=== PATIENT | male | born 1940 | race Caucasian/White ===

== ENCOUNTER → 2017-06-26 05:50 | Outpatient (CLI) | payer MEDICARE, OTHER, SELFPAY ==
[2017-06-26 08:15] LABS: ALB/GLOB Ratio 1.1 RATIO (0.9-2.4); AST(SGOT) 17 U/L (15-37); Alanine Aminotransfer ALT/SGPT 23 U/L (16-61); Albumin, Serum 3.3 g/dL (3.2-5.0); Alkaline Phosphatase 103 U/L (45-117); Anion Gap 4 (5-15); BUN 13 mg/dL (7-18); BUN/Creat Ratio 11.8 RATIO (10-20); Calcium,Total 8.8 mg/dL (8.5-10.1); Chloride 103 mmol/L (98-107); EST Glomerular Filtration Rate 69 mL/min (>60); Est Glom Filt Rate - Afr Amer 84 mL/min (>60); Free T3 2.9 pg/mL (2.18-3.98); Glucose 89 mg/dL (74-106); Potassium 4.1 mmol/L (3.5-5.1); Protein, Total 6.3 g/dL (6.4-8.2); Sodium Level 141 mmol/L (136-145); T4 Free Direct 1.33 ng/dL (0.76-1.46); Thyroid Stim Hormone (TSH) 1.32 uIU/mL (0.358-3.74)
[2017-06-26 13:24] LABS: Vitamin D,25 Hydroxy 36.8 ng/mL (29.95-100.01)
== END ==
PROVIDERS: Family Provider Family Medicine; PCP Family Medicine; Visit Provider Internal Medicine Endocrinology, Diabetes & Metabolism
DX: E03.9 Hypothyroidism, unspecified (principal); E55.9 Vitamin D deficiency, unspecified
CPT/HCPCS: 36415; 80053; 82306; 84439; 84443; 84481

== ENCOUNTER 2017-07-27 01:10 | Emergency (ER) | payer MEDICARE, OTHER, SELFPAY ==
[2017-07-27 01:12] VITALS: BP 155/91; PULSE 58; RESP 19; TEMP 36.6; O2SAT 98; BMI 38.0
--- NOTE | 2017-07-27 01:55 | ED.VISSUMM ---
- ER Visit Summary Date of Service: 07/27/17 Chief Complaint: [Bleeding from left ear] History of Present Illness: The patient is a 77 M [presents to the emergency department with complaint of bloody drainage from left ear that started around 12:30 AM. Patient was asleep when he was awoken by a wet sensation on his pillow. Patient does use CPAP. Patient is on Xarelto for history of A. fib. Patient denies any pain in his ear. Patient denies any trauma to his ear although he did use a Q-tip yesterday morning but had no issues throughout the day. Patient denies any recent illness.] Physical Examination: [HEENT-PERRLA, EOMI. Cranial nerves II through XII grossly intact. Left ear canal has blood in it appears to be clot on the medial side of the ear canal without active bleeding at this time. I am only able to see the outer aspect of the ear dry and it appears normal. I am unable to perform insufflation.. Mucous membranes moist. No adenopathy. Cardiovascular-regular rate and rhythm. No murmurs auscultated. Lungs-clear to auscultation, chest wall stable without crepitus or subcu emphysema Abdomen-normoactive bowel sounds, soft, nontender, no rebound or rigidity, no peritoneal signs. Extremities-intact ?4, normal range of motion, normal pulses, atraumatic] Test Results: [None indicated] Emergency Department Course and Treatment: [I will start patient on Ciprodex otic suspension]. It is unclear if patient may have had a TM perforation versus abrasion to the ear canal although I suspect likely an abrasion to his ear canal as the etiology for the bleeding. Treatment Plan: [Discharged with follow-up with Dr. Bautista who is on for ENT.] Disposition: [Discharged home in stable condition] Impression: [Bleeding from left ear-suspect abrasion medial ear canal] This note was generated with [employer] dictation software. It may contain incorrect words, spelling, and punctuation that were not noted in review of the chart prior to signing ED Disposition - Plan for ED Patient: Chief Complaint: Ear Problem Referrals: Fidel Maurer DO [Primary Care Provider] -
--- NOTE | 2017-07-27 02:00 | ED.DEP ---
ED Disposition - Plan for ED Patient: Chief Complaint: Ear Problem Prescriptions: Ciprofloxacin HCl/Dexameth [Ciprodex Otic Suspension] 2 drp LEFT EAR BID #1 bot Referrals: Fidel Maurer DO [Primary Care Provider] - Additional Instructions: Bleeding from left ear canal may be due to a tear of ear canal or ruptured ear drum, Follow up with ENT doctor
== END 2017-07-27 02:12 | disposition home or self-care (01) ==
LOC: ED 01:58
PROVIDERS: Emergency Provider Emergency Medicine; Family Provider Family Medicine; PCP Family Medicine
DX: H92.22 Otorrhagia, left ear (principal); I48.91 Unspecified atrial fibrillation; I25.10 Atherosclerotic heart disease of native coronary artery without angina pectoris; I10 Essential (primary) hypertension; E03.9 Hypothyroidism, unspecified; Z79.82 Long term (current) use of aspirin; Z79.01 Long term (current) use of anticoagulants; Z79.899 Other long term (current) drug therapy
CPT/HCPCS: 99282

== ENCOUNTER → 2017-10-08 09:51 | Outpatient (CLI) | payer MEDICARE, OTHER, SELFPAY ==
--- NOTE | 2017-10-08 10:20 | RAD_ITS ---
STUDY: X-RAY - LUMBAR SPINE REASON FOR EXAM: Male, 77 years old. Pain lower back radiating down both legs for several weeks. TECHNIQUE: 5 view(s) of the lumbar spine were obtained. COMPARISON: None FINDINGS: There is reversal of the normal lumbar lordosis. There is no substantial scoliosis. There is retrolisthesis of L3 on L4 of 6 mm. The alignment is otherwise preserved. There is multilevel endplate spondylosis of the lumbar vertebrae. There is multi-level degenerative disc disease with multi-level disc space narrowing. This is most marked at L3-4. There is no evidence of acute fracture or loss of vertebral axial height. There is no demonstrated spondylolysis of the pars interarticulares. There is atherosclerotic calcification of the abdominal aorta without a demonstrated aneurysm. RAD/L/S Spine Min 4 Views IMPRESSION: Degenerative changes of the spine, as detailed above. Electronically Signed: Mele Elliott DO at 19:20 EDT Tel [phone], Service support ,
== END ==
PROVIDERS: Family Provider Family Medicine; PCP Family Medicine; Visit Provider Family Medicine
DX: M51.36 Other intervertebral disc degeneration, lumbar region (principal)
CPT/HCPCS: 72110

== ENCOUNTER → 2018-04-04 06:01 | Outpatient (CLI) | payer MEDICARE, OTHER, SELFPAY ==
[2018-04-04 08:42] LABS: Absolute Lymphocyte Count 1.77 X10^3/ul (0.83-4.51); Absolute Neutrophil Count 3.9 X10^3/uL (2.0-7.7); Basophil# 0.03 X10^3/uL; Basophil% 0.5 % (0-1); Eosinophil# 0.15 X10^3/uL; Eosinophils% 2.3 % (0-5); Hematocrit 42.5 % (40-54); Hemoglobin 14.4 g/dl (13.0-16.5); Lymphocyte # 1.77 X10^3/ul (4.0); Lymphocyte % 27.5 % (19-41); Mean Corp Hgb Conc 33.9 g/gl (32-36); Mean Corpuscular Hgb 31.2 pg (27.0-32.0); Mean Corpuscular Volume 92.2 fL (80-94); Mean Platelet Vol. 10.5 fl (6.2-12.0); Monocyte# 0.54 X10^3/uL; Monocyte% 8.4 % (0-10); Neutrophil # 3.94 X10^3/uL (2.7-7.7); Neutrophil % 61.1 % (47-70); Platelet Count 187 K/mm3 (150-450); RBC Distribution Width CV 12.6 % (11.6-14.6); RBC Distribution Width SD 41.7 fl (35.1-43.9); Red Blood Count 4.61 M/mm3 (4.6-6.2); White Blood Count 6.4 K/mm3 (4.4-11.0)
[2018-04-04 08:51] LABS: POSITIVE COUNT NO; POSITIVE DIFFERENTIAL NO; POSITIVE MORPHOLOGY NO
[2018-04-04 09:16] LABS: ALB/GLOB Ratio 1.2 RATIO (0.9-2.4); AST(SGOT) 17 U/L (15-37); Alanine Aminotransfer ALT/SGPT 25 U/L (16-61); Albumin, Serum 3.4 g/dL (3.2-5.0); Alkaline Phosphatase 109 U/L (45-117); Anion Gap 8 (5-15); BUN 16 mg/dL (7-18); Calcium,Total 8.2 mg/dL (8.5-10.1); Chloride 106 mmol/L (98-107); Cholesterol 125 mg/dL (200); Creatinine, Serum 1.14 mg/dL (0.70-1.30); EST Glomerular Filtration Rate 66 mL/min (>60); Est Glom Filt Rate - Afr Amer 80 mL/min (>60); Free T3 2.5 pg/mL (2.18-3.98); Globulin 2.8 g/dL (2.2-4.2); Glucose 96 mg/dL (74-106); High Density Lipoprotein 48 mg/dL; Potassium 3.8 mmol/L (3.5-5.1); Protein, Total 6.2 g/dL (6.4-8.2); Sodium Level 140 mmol/L (136-145); T4 Free Direct 1.28 ng/dL (0.76-1.46); Thyroid Stim Hormone (TSH) 1.89 uIU/mL (0.358-3.74); Triglycerides 118 mg/dL; Very Low Density Lipoprotein 24 mg/dL (5-40)
== END ==
PROVIDERS: Family Provider Family Medicine; PCP Family Medicine; Referring Provider Internal Medicine Endocrinology, Diabetes & Metabolism; Visit Provider Internal Medicine Endocrinology, Diabetes & Metabolism
DX: I10 Essential (primary) hypertension (principal); E78.5 Hyperlipidemia, unspecified; E03.9 Hypothyroidism, unspecified
CPT/HCPCS: 36415; 80053; 80061; 84439; 84443; 84481; 85025

== ENCOUNTER → 2018-04-25 07:27 | Outpatient (CLI) | payer MEDICARE, OTHER, SELFPAY ==
--- NOTE | 2018-04-25 07:32 | CDU_ITS ---
Reason For Study: carotid stenosis Rt. Velocities/BP Lt. Velocities/BP Prox CCA 67.4/21.1 cm/sec. Prox CCA 97.3/21.1 cm/sec. Mid CCA 65.1/15.2 cm/sec. Mid CCA 93.8/23.5 cm/sec. Dist CCA 88.5/22.3 cm/sec. Dist CCA 65.1/21.7 cm/sec. Prox ICA 53.4/19.9 cm/sec. Prox ICA 77.4/23.5 cm/sec. Mid ICA 76.8/32.8 cm/sec. Mid ICA 71.5/29.9 cm/sec. Dist ICA 80.3/26.4 cm/sec. Dist ICA 84.4/33.4 cm/sec. Rt. ICA/CCA = 1.2. Lt. ICA/CCA = .9. Prox ECA 110/21.7 cm/sec. Prox ECA 99.8/16.5 cm/sec. Rt. Vert. 43.2/16.1 cm/sec. Lt. Vert. 33.8/14.1 cm/sec. Right Extracranial There is heterogeneous, irregular atherosclerotic plaque noted in the right common carotid artery. There is intimal thickening but no significant atherosclerotic plaque noted in the right internal carotid artery. There is intimal thickening but no significant atherosclerotic plaque noted in the right external carotid artery. Antegrade flow is noted in the right vertebral artery. Left Extracranial There is heterogeneous, irregular atherosclerotic plaque noted in the left common carotid artery. There is intimal thickening but no significant atherosclerotic plaque noted in the left internal carotid artery. There is intimal thickening but no significant atherosclerotic plaque noted in the left external carotid artery. Antegrade flow is noted in the left vertebral artery. Procedure Carotid Duplex [id number]. The exam was diagnostic. Exam performed in department. Interpretation Summary Surgical changes right carotid bulb and internal carotid with <50% stenosis. No significant plague proximal left internal carotid with <50% stenosis. Normal flow bilateral external carotids Patent and antegrade vertebrals bilaterally No change from 04/19/17. Ordering Physician: Won Noel Referring Physician: Fidel Maurer Performed By: Jose Brennan RVT
--- OUTSIDE RECORDS SUMMARY | 2018-06-29 19:48 | XMS RPT_ITS ---
:1940 Author Organization OHIP Care Team Providers Name Role Phone Dafne Otoole Attending Unavailable Dafne Otoole Referring Unavailable Fidel Maurer Primary Care Unavailable Varghese Celis Consulting Unavailable Dafne Otoole Attending Unavailable Dafne Otoole Referring Unavailable Fidel Maurer Primary Care Unavailable Varghese Celis Consulting Unavailable Fidel Maurer Attending Unavailable Fidel Maurer Primary Care Unavailable Fidel Maurer Attending Unavailable Fidel Maurer Referring Unavailable Fidel Maurer Primary Care Unavailable Won Noel Attending Unavailable Won Noel Referring Unavailable Fidel Maurer Primary Care Unavailable Won Noel Consulting Unavailable Erasto, Fidel Primary Care Unavailable Manuela Carpio Attending Unavailable Anita Boone Attending Unavailable ErastoFidel richards Referring Unavailable Erasto, Fidel Primary Care Unavailable Won Noel Attending Unavailable Won Noel Referring Unavailable Erasto, Fidel Primary Care Unavailable PROBLEMS PROBLEMS DATE TYPE CONDITION / CODE ATTENDING STATUS SOURCE 04/25/2018 Unknown I65.23 - Occlusion Won Noel Active [place] and stenosis of [facility] bilateral carotid Hospital arteries / Repository I65.23(ICD-10) 04/04/2018 Unknown E03.9 - Raghunathan, Active [place] Hypothyroidism, Dafne N. 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 Community unspecified / Hospital E55.9(ICD-10) Repository PROCEDURES PROCEDURES No Procedure Records FoundRESULTS RESULTS CAROTID DUPLEX Observed: 04/25/2018 Status: F Source: [place] ULTRASOUND 3:17 PM [facility] REPOSITORY [facility] Cardiovascular Services [address] [place] [address] Carotid Duplex Ultrasound 04/25/18 0759 MR#: [id number] Acct: [id number] Name: CYNTHIA MANDUJANO Rep #: [id number] : 1940 77 From: Won Noel MD Attending Dr: Won Noel MD Status: REG CLI Ordering Dr: Won Noel MD Date: 04/25/18 Location: CVS Sex: M C Admitted: Reason For Study: carotid stenosis Rt. Velocities/BP Lt. Velocities/BP Prox CCA 67.4/21.1 cm/sec. Prox CCA 97.3/21.1 cm/sec. Mid CCA 65.1/15.2 cm/sec. Mid CCA 93.8/23.5 cm/sec. Dist CCA 88.5/22.3 cm/sec. Dist CCA 65.1/21.7 cm/sec. Prox ICA 53.4/19.9 cm/sec. Prox ICA 77.4/23.5 cm/sec. Mid ICA 76.8/32.8 cm/sec. Mid ICA 71.5/29.9 cm/sec. Dist ICA 80.3/26.4 cm/sec. Dist ICA 84.4/33.4 cm/sec. Rt. ICA/CCA = 1.2. Lt. ICA/CCA = .9. Prox ECA 110/21.7 cm/sec. Prox ECA 99.8/16.5 cm/sec. Rt. Vert. 43.2/16.1 cm/sec. Lt. Vert. 33.8/14.1 cm/sec. Right Extracranial There is heterogeneous, irregular atherosclerotic plaque noted in the right common carotid artery. There is intimal thickening but no significant atherosclerotic plaque noted in the right internal carotid artery. There is intimal thickening but no significant atherosclerotic plaque noted in the right external carotid artery. Antegrade flow is noted in the right vertebral artery. Left Extracranial There is heterogeneous, irregular atherosclerotic plaque noted in the left common carotid artery. There is intimal thickening but no significant atherosclerotic plaque noted in the left internal carotid artery. There is intimal thickening but no significant atherosclerotic plaque noted in the left external carotid artery. Antegrade flow is noted in the left vertebral artery. Procedure Carotid Duplex 62145. The exam was diagnostic. Exam performed in department. Interpretation Summary Surgical changes right carotid bulb and internal carotid with <50% stenosis. No significant plague proximal left internal carotid with <50% stenosis. Normal flow bilateral external carotids Patent and antegrade vertebrals bilaterally No change from 04/19/17. Ordering Physician: Won Noel Referring Physician: Fidel Maurer Performed By: Jose Brennan RVT 04/25/18 1517 Date Won Noel MD CC: Fidel Maurer DO; Won Noel MD Date Dictated: 04/25/18 0759 Date Transcribed: 04/25/181516 Water Superintendent: Signed CBC W/DIFF, AUTOMATED Collected: 04/04/2018 Status: F Source: [place] 6:10 AM [facility] REPOSITORY Order Comment: LIPID,CMP,CBCD FOR DR MAURER T3F,T4F, TSH FOR ABBEY TYPE CODE TESTS RESULT OUT OF RANGE REFERENCE UNITS LAB L100.1000 4.4-11.0 K/mm3 Normal WBC 6.4 LAB L100.1200 4.6-6.2 M/mm3 Normal RBC 4.61 LAB L100.1300 13.0-16.5 g/dl Normal HGB 14.4 LAB L100.1400 40-54 % Normal HCT 42.5 LAB L100.1500 80-94 fL Normal MCV 92.2 LAB L100.1600 27.0-32.0 pg Normal MCH 31.2 LAB L100.1700 32-36 g/gl Normal MCHC 33.9 LAB L100.1810 11.6-14.6 % Normal RDW CV 12.6 LAB L100.1820 35.1-43.9 fl Normal RDW SD 41.7 LAB L100.1900 150-450 K/mm3 Normal PLT 187 LAB L100.2000 6.2-12.0 fl Normal MPV 10.5 LAB L100.2100 47-70 % Normal NEUT% 61.1 LAB L100.2200 19-41 % Normal LY% 27.5 LAB L100.2300 0-10 % Normal MONO% 8.4 LAB L100.2400 0-5 % Normal EO% 2.3 LAB L100.2500 0-1 % Normal BASO% 0.5 LAB L100.2550 0.0-0.9 % Normal IM GRAN % 0.200 Result Comment: IG% - Immature Granulocytes (promyelocytes, myelocytes and metamyelocytes) > 1% indicates that a LEFT SHIFT is Present. LAB L100.2620 2.0-7.7 X10 3/uL Normal Absolute Neut 3.9 LAB L100.2720 0.83-4.51 X10 3/ul Normal Absolute Lymph 1.77 Performed By: #### L100.0100 #### [facility] [address] [place], [address] COMPREHENSIVE METABOLIC Collected: 04/04/2018 Status: F Source: [place] [facility] 6:08 AM [facility] REPOSITORY Order Comment: LIPID,CMP,CBCD FOR DR MAURER T3F,T4F, TSH FOR ABBEY TYPE CODE TESTS RESULT OUT OF RANGE REFERENCE UNITS LAB L501.0100 74-106 mg/dL Normal GLU 96 Result Comment: Please note revised GLUCOSE reference range effective 2017. LAB L501.1000 7-18 mg/dL Normal BUN 16 LAB L501.1100 0.70-1.30 mg/dL Normal CREAT,SERUM 1.14 Result Comment: The validity of the calculated GFR AND GFRAA in patients over 70 years has not been determined. Clinical correlation is essential. LAB L501.1110 >60 mL/min Normal EST GFR 66 Result Comment: Non- GFR Calc LAB L501.1115 >60 mL/min Normal EST GFR - AA 80 Result Comment: GFR Calc LAB L501.1300 10-20 RATIO Normal BUN/CRE 14.0 LAB L501.1500 6.4-8.2 g/dL Low T PROT 6.2 LAB L501.1800 3.2-5.0 g/dL Normal ALB 3.4 LAB L501.1950 2.2-4.2 g/dL Normal GLOB 2.8 LAB L501.2000 0.9-2.4 RATIO Normal A/G 1.2 LAB L501.2200 8.5-10.1 mg/dL Low CA 8.2 LAB L501.4100 15-37 U/L Normal AST 17 LAB L501.4305 45-117 U/L Normal ALK P 109 LAB L501.4405 16-61 U/L Normal ALT 25 LAB L501.4600 0.20-1.00 mg/dL T Normal BILI 0.50 LAB L501.5300 136-145 mmol/L NA Normal 140 LAB L501.5600 3.5-5.1 mmol/L K Normal 3.8 LAB L501.5900 98-107 mmol/L CL Normal 106 LAB L501.6100 21.0-32.0 mmol/L Normal CO2 26.0 LAB L501.6200 5-15 Normal GAP 8 Performed By: #### L500.4050, L500.4100, L501.88223, L501.9520, L506.0400 #### [facility] [address] [place], [place], [address] LIPID PROFILE Collected: 04/04/2018 Status: F Source: [place] 6:08 AM [facility] REPOSITORY Order Comment: LIPID,CMP,CBCD FOR DR MAURER T3F,T4F, TSH FOR RAGHUNATHAN TYPE CODE TESTS RESULT OUT OF RANGE REFERENCE UNITS LAB L501.4900 200 mg/dL Normal CHOL 125 Result Comment: <200 mg/dL Desirable 200-240 mg/dL Borderline >240 mg/dL High Risk LAB L501.5000 mg/dL Normal TRIG 118 Result Comment: The drugs N-Acetylcysteine and Metamizole may falsely depress this assay. Serum Triglycerides Reference Interval Normal <150 mg/dL Borderline high 150 - 199 mg/dL High 200 - 499 mg/dL Very High > or = 500 mg/dL LAB L501.6400 mg/dL Normal HDL 48 Result Comment: The drugs N-Acetylcysteine and Metamizole may falsely depress this assay. Reference Range HDL <40 mg/dL Low HDL Cholesterol HDL >or= 60 mg/dL High HDL Cholesterol LAB L501.6500 0-130 mg/dL Normal LDL 53 LAB L501.6600 5-40 mg/dL Normal VLDL 24 Performed By: #### L500.4050, L500.4100, L501.12285, L501.9520, L506.0400 #### [facility] [address] [place], [place], [address] FREE T3 Collected: 04/04/2018 Status: F Source: [place] 6:08 AM [facility] REPOSITORY Order Comment: LIPID,CMP,CBCD FOR DR MAURER T3F,T4F, TSH FOR RAGHUNATHAN TYPE CODE TESTS RESULT OUT OF RANGE REFERENCE UNITS LAB L501.10399 2.18-3.98 pg/mL Normal FREE T3 2.5 Performed By: #### L500.4050, L500.4100, L501.72800, L501.9520, L506.0400 #### [facility] [address] [place], [address] THYROID STIM HORMONE Collected: 04/04/2018 Status: F Source: [place] (TSH) 6:08 AM [facility] REPOSITORY Order Comment: LIPID,CMP,CBCD FOR DR MAURER T3F,T4F, TSH FOR RAGNATHAN TYPE CODE TESTS RESULT OUT OF RANGE REFERENCE UNITS LAB L501.9520 0.358-3.74 uIU/mL Normal TSH 1.89 Performed By: #### L500.4050, L500.4100, L501.55056, L501.9520, L506.0400 #### [facility] [place], [address] T4 FREE DIRECT Collected: 04/04/2018 Status: F Source: [place] 6:08 AM [facility] REPOSITORY Order Comment: LIPID,CMP,CBCD FOR DR MAURER T3F,T4F, TSH FOR RAGNATHAN TYPE CODE TESTS RESULT OUT OF RANGE REFERENCE UNITS LAB L506.0400 0.76-1.46 ng/dL Normal T4 FREE 1.28 DIRECT Performed By: #### L500.4050, L500.4100, L501.43820, L501.9520, L506.0400 #### [facility] [place], [address] L/S SPINE MIN 4 Observed: 10/08/2017 Status: F Source: [place] VIEWS 9:55 AM [facility] REPOSITORY [facility] Imaging Services [address] [place] [address] L/S Spine Min 4 Views MR#: [id number] Acct: [id number] Name: CYNTHIA MANDUJANO Rep #: [id number] : 1940 M 77 From: Mele Elliott DO PCP: Fidel Maurer DO Status: REG CLI Study: L/S Spine Min 4 Views Date of Exam: 10/08/17 Exam# [id number] Ordering Dr: Fidel Maurer DO STUDY: X-RAY - LUMBAR SPINE REASON FOR EXAM: Male, 77 years old. Pain lower back radiating down both legs for several weeks. TECHNIQUE: 5 view(s) of the lumbar spine were obtained. COMPARISON: None FINDINGS: There is reversal of the normal lumbar lordosis. There is no substantial scoliosis. There is retrolisthesis of L3 on L4 of 6 mm. The alignment is otherwise preserved. There is multilevel endplate spondylosis of the lumbar vertebrae. There is multi-level degenerative disc disease with multi-level disc space narrowing. This is most marked at L3-4. There is no evidence of acute fracture or loss of vertebral axial height. There is no demonstrated spondylolysis of the pars interarticulares. There is atherosclerotic calcification of the abdominal aorta without a demonstrated aneurysm. RAD/L/S Spine Min 4 Views IMPRESSION: Degenerative changes of the spine, as detailed above. Electronically Signed: Mele Elliott DO at 19:20 EDT Tel [phone], Service support , CC: Fidel Maurer DO Water Superintendent: Signed DISCHARGE INSTRUCTION Observed: 07/27/2017 Status: F Source: [place] 2:02 AM [facility] REPOSITORY [facility] Medical Records Department [address] [place] [address] Discharge Instruction 07/27/17 0200 MR#: [id number] Acct: [id number] Name: CYNTHIA MANDUJANO Kory Rep #: [id number] : 1940 77 From: Talon Carpio DO PCP: Fidel Maurer DO Status: REG ER ED Disposition - Plan for ED Patient: Chief Complaint: Ear Problem Prescriptions: Ciprofloxacin HCl/Dexameth [Ciprodex Otic Suspension] 2 drp LEFT EAR BID #1 bot Referrals: Fidel Maurer DO [Primary Care Provider] - Additional Instructions: Bleeding from left ear canal may be due to a tear of ear canal or ruptured ear drum, Follow up with ENT doctor What to do if you have Problems For any increased pain, shortness of breath, bleeding, nausea or vomiting, chest pain, or any unexpected problems, contact your Primary Care Provider. Call [facility] ([phone]) or report to the closest Emergency Room. Call 911 if necessary. 07/27/17 0202 <Electronically signed by Talon Carpio DO> Date Talon Carpio DO Cosigner Signature (If Indicated): Date CC: Fidel Maurer DO EMERGENCY DEPARTMENT Observed: 07/27/2017 Status: F Source: [place] SUMMARY 1:58 AM [facility] REPOSITORY [facility] Medical Records Department [address] [place] [address] Emergency Department Summary 07/27/17 0155 MR#: [id number] Acct: [id number] Name: CYNTHIA MANDUJANO Rep #: [id number] : 1940 77 From: Talon Carpio DO PCP: Fidel Maurer DO Status: REG ER - ER Visit Summary Date of Service: 07/27/17 Chief Complaint: [Bleeding from left ear] History of Present Illness: The patient is a 77 M [presents to the emergency department with complaint of bloody drainage from left ear that started around 12:30 AM. Patient was asleep when he was awoken by a wet sensation on his pillow. Patient does use CPAP. Patient is on Xarelto for history of A. fib. Patient denies any pain in his ear. Patient denies any trauma to his ear although he did use a Q-tip yesterday morning but had no issues throughout the day. Patient denies any recent illness.] Physical Examination: [HEENT-PERRLA, EOMI. Cranial nerves II through XII grossly intact. Left ear canal has blood in it appears to be clot on the medial side of the ear canal without active bleeding at this time. I am only able to see the outer aspect of the ear dry and it appears normal. I am unable to perform insufflation.. Mucous membranes moist. No adenopathy. Cardiovascular-regular rate and rhythm. No murmurs auscultated. Lungs-clear to auscultation, chest wall stable without crepitus or subcu emphysema Abdomen-normoactive bowel sounds, soft, nontender, no rebound or rigidity, no peritoneal signs. Extremities-intact 4, normal range of motion, normal pulses, atraumatic] Test Results: [None indicated] Emergency Department Course and Treatment: [I will start patient on Ciprodex otic suspension]. It is unclear if patient may have had a TM perforation versus abrasion to the ear canal although I suspect likely an abrasion to his ear canal as the etiology for the bleeding. Treatment Plan: [Discharged with follow-up with Dr. Bautista who is on for ENT.] Disposition: [Discharged home in stable condition] Impression: [Bleeding from left ear-suspect abrasion medial ear canal] This note was generated with [employer] dictation software. It may contain incorrect words, spelling, and punctuation that were not noted in review of the chart prior to signing ED Disposition - Plan for ED Patient: Chief Complaint: Ear Problem Referrals: Fidel Maurer, [Primary Care Provider] - What to do if you have Problems For any increased pain, shortness of breath, bleeding, nausea or vomiting, chest pain, or any unexpected problems, contact your Primary Care Provider. Call [facility] ([phone]) or report to the closest Emergency Room. Call 911 if necessary. 07/27/17 0158 <Electronically signed by Talon Carpio DO> Date Talon Carpio DO Cosigner Signature (If Indicated): Date CC: Fidel Maurer DO COMPREHENSIVE METABOLIC Collected: 06/26/2017 Status: F Source: [place] 5:57 AM [facility] REPOSITORY TYPE CODE TESTS RESULT OUT OF RANGE REFERENCE UNITS LAB L501.0100 74-106 mg/dL Normal GLU 89 Result Comment: Please note revised GLUCOSE reference range effective 2017. LAB L501.1000 7-18 mg/dL Normal BUN 13 LAB L501.1100 0.70-1.30 mg/dL Normal CREAT,SERUM 1.10 Result Comment: The validity of the calculated GFR AND GFRAA in patients over 70 years has not been determined. Clinical correlation is essential. LAB L501.1110 >60 mL/min Normal EST GFR 69 Result Comment: Non- GFR Calc LAB L501.1115 >60 mL/min Normal EST GFR - AA 84 Result Comment: GFR Calc LAB L501.1300 10-20 RATIO Normal BUN/CRE 11.8 LAB L501.1500 6.4-8.2 g/dL Low T PROT 6.3 LAB L501.1800 3.2-5.0 g/dL Normal ALB 3.3 LAB L501.1950 2.2-4.2 g/dL Normal GLOB 3.0 LAB L501.2000 0.9-2.4 RATIO Normal A/G 1.1 LAB L501.2200 8.5-10.1 mg/dL CA Normal 8.8 LAB L501.4100 15-37 U/L Normal AST 17 LAB L501.4305 45-117 U/L Normal ALK P 103 LAB L501.4405 16-61 U/L Normal ALT 23 Result Comment: Please note revised ALT reference range effective 2017. LAB L501.4600 0.20-1.00 mg/dL Normal T BILI 0.80 LAB L501.5300 136-145 mmol/L Normal NA 141 LAB L501.5600 3.5-5.1 mmol/L Normal K 4.1 LAB L501.5900 98-107 mmol/L Normal CL 103 LAB L501.6100 21.0-32.0 mmol/L High CO2 34.0 LAB L501.6200 5-15 Low GAP 4 Performed By: #### L500.4050, L501.54037, L501.9520, L506.0400 #### [facility] [address] [place], [address] FREE T3 Collected: 06/26/2017 Status: F Source: [place] 5:57 AM [facility] REPOSITORY TYPE CODE TESTS RESULT OUT OF RANGE REFERENCE UNITS LAB L501.42671 2.18-3.98 pg/mL Normal FREE T3 2.9 Performed By: #### L500.4050, L501.06065, L501.9520, L506.0400 #### [facility] [address] [place], [address] THYROID STIM HORMONE Collected: 06/26/2017 Status: F Source: [place] (TSH) 5:57 AM [facility] REPOSITORY TYPE CODE TESTS RESULT OUT OF RANGE REFERENCE UNITS LAB L501.9520 0.358-3.74 uIU/mL Normal TSH 1.32 Performed By: #### L500.4050, L501.42762, L501.9520, L506.0400 #### [facility] [address] [place], [address] T4 FREE DIRECT Collected: 06/26/2017 Status: F Source: [place] 5:57 AM [facility] REPOSITORY TYPE CODE TESTS RESULT OUT OF RANGE REFERENCE UNITS LAB L506.0400 0.76-1.46 ng/dL Normal T4 FREE 1.33 DIRECT Performed By: #### L500.4050, L501.65510, L501.9520, L506.0400 #### [facility] [address] [place], [address] VITAMIN D,25 HYDROXY Collected: 06/26/2017 Status: F Source: [place] 5:57 AM [facility] REPOSITORY TYPE CODE TESTS RESULT OUT OF RANGE REFERENCE UNITS LAB L506.1000 29.95-100.01 ng/mL Normal Vitamin D 36.8 25-OH Result Comment: Vitamin D 25(OH) Status Range Deficiency <20 ng/mL (50nmol/L) Insuffciency 20 - 30 ng/mL (50 - 75 nmol/L) Sufficiency 30 - 100 ng/mL (75 - 250 nmol/L) Toxicity >100 ng/mL (>250 nmol/L) Performed By: #### L506.1000 #### [facility] [place], [address] CARDIOLOGY VISIT Observed: 06/19/2017 Status: F Source: [place] REPORT 2:57 PM [facility] REPOSITORY [facility] [address] [place] [address] OFFICE VISIT Date of Service: 06/18/17 MR#: [id number] Acct: [id number] Name: CYNTHIA MANDUJANO Rep #: [id number] : 1940 Provider: Anita Boone Age/Sex: 76/M Location: [facility] Status: Signed HPI HPI Details: CYNTHIA MANDUJANO, is a 76 M who presents to the office today for a cardiovascular followup. He has a history of coronary artery disease with inferior myocardial infarction and stenting to his RCA in 2010. He also has a history of atrial fibrillation and hyperlipidemia. He has been evaluated by [facility] EP and did undergo an ablation. From a cardiac standpoint, patient is doing well. He does not have any chest discomfort/heaviness/tightness. His exercise tolerance is stable for his age. He does not have any worsening symptoms of shortness of breath. He denies any PND. He does not have any orthopnea. He does not have any symptoms of congestive heart failure. He does not have any palpitations that he is aware of. He does not have any lightheadedness or dizziness. He does not have any near-syncope or syncope. He does have trace lower extremity edema. He does not have any symptoms of claudication. Intake Vital Signs06/18/17 Height 5 ft 8 in 06/18/17 Weight: 236 lb 06/18/17 Body Mass Index (BMI) 35.9 06/18/17 Blood Pressure 112/78 06/18/17 Blood Pressure Location Lt brachial Intake Visit Reasons: 6 M FU Back Up Scan Coordinator Required: No Is patient in pain?: No Allergies atorvastatin calcium [From Lipitor] Allergy (Verified 06/18/17 09:58) Unknown Medications Aspirin [Aspirin, Baby] 81 mg PO DAILY@0800 01/31/16 [History Confirmed 06/18/17] Budesonide/Formoterol 160/4.5 [Symbicort 160/4.5 Mcg Inhaler (SP)] 2 puff INHALATION PRN PRN 01/31/16 [History Confirmed 06/18/17] Calcium Carbonate/Vitamin D3 [Caltrate 600 Plus D3 Tablet] 1 ea PO DAILY 01/31/16 [History Confirmed 06/18/17] Carvedilol [Coreg] 6.25 mg PO BID 01/31/16 [History Confirmed 06/18/17] Cetirizine HCl [Zyrtec] 10 mg PO DAILY 01/31/16 [History Confirmed 06/18/17] Levothyroxine [Synthroid] 88 mcg PO DAILY 01/31/16 [History Confirmed 06/18/17] Lisinopril [Zestril] 5 mg PO DAILY 01/31/16 [History Confirmed 06/18/17] Meclizine HCl [Antivert] 25 mg PO TID PRN PRN #20 tab 01/31/16 [Rx Confirmed 06/18/17] Nitroglycerin [Nitrostat] 0.4 mg SUBLINGUAL Q5M PRN 01/31/16 [History Confirmed 06/18/17] Rosuvastatin Calcium [Crestor] 10 mg PO DAILY 01/31/16 [History Confirmed 06/18/17] rivaroxaban 20 mg tablet 20 mg PO DAILY #90 tab 06/18/17 [Rx Confirmed 06/18/17] Ejection fraction %: 60 to 64 PFSH Medical History Atherosclerotic heart disease of elim [place] coronary artery without angina pectoris (Chronic) HLD (hyperlipidemia) (Chronic) Paroxysmal atrial fibrillation (Chronic) Stenosis of right carotid artery (Chronic) Obstructive sleep apnea (Chronic) Myocardial infarct, old (Chronic) HTN (hypertension) (Chronic) Hypothyroidism (Chronic) Surgical History S/P PTCA (percutaneous transluminal coronary angioplasty) (Chronic) Family History Father CAD (coronary artery disease) Colon cancer Hypertension Mother CAD (coronary artery disease) CVA (cerebral vascular accident) Brother CAD (coronary artery disease) Brother COPD (chronic obstructive pulmonary disease) Social History Smoking Status: Never smoker alcohol intake: never substance use type: does not use caffeine: No what type of physical activity do you participate in: none seatbelt use: always do you feel safe at home: Yes ROS Const Const: Negative for weakness, fatigue, fever(s) or headache(s) Eyes Eyes: Negative for blind spots, loss of peripheral vision or transient loss of vision ENT ENT: Negative for headache(s), dizziness, tinnitus or Nosebleed/epistaxis Cardio Chest Pain: No Palpitations: No Edema: Bilateral Muscle aches with walking: None Resp Respiratory: Negative for SOB with activity, SOB at rest, SOB orthopnea\SOB lying down or Cough GI GI: Negative nausea, vomiting, heartburn or vomiting blood/hematemesis : Negative for hematuria Musc Musc: Negative for muscle aches/ myalgia Neuro Neuro: Negative for weakness, headache(s), dizziness, near syncope, syncope, lightheadedness or orthostatic symptoms Collins Hematologic/Lymphatic: Negative for easy bleeding Endo Endo: Negative for fatigue Cardiology Exam Const Appearance: cooperative, no acute distress and well developed Orientation: alert, awake and oriented x3 Head Head: normocephalic and atraumatic Mouth: moist mucous membranes Eyes General: appearance normal, both eyes and all related structures Conjunctivae: conjunctivae normal Pupils: PERRL EOM: EOM intact bilaterally Neck Neck: normal visual inspection, no lymphadenopathy and no JVD Carotids: Negative bruit Neck Mass: Negative Neck mass Chest Chest inspection: normal inspection of the chest and symmetric chest movement Auscultation: Bilateral: Diminished Lung Sounds Cardio Palpation: normal PMI Rate: regular rate Rhythm: regular rhythm Heart sounds: S1 normal and S2 normal; negative rub, gallop or murmur GI GI: normal to inspection, soft, no hepatosplenomegaly and bowel sounds present; negative tender Neuro General: alert, awake, oriented x3, CN's II-XI intact bilaterally and moves all extremities Extremities Pulses: Normal: Right Posterior Tibial Pulse, Left Posterior Tibial Pulse, Right Radial Pulse, Left Radial Pulse Lower Extremity Edema: +1: Bilateral Psych Psychological: normal affect Supplemental Info He had an echocardiogram in 2015 demonstrated left ventricular systolic functions normal with an estimated ejection fraction of 60%, mildly enlarged left atrium, mild mitral valve insufficiency, trivial tricuspid valve insufficiency. His last cardiac catheterization in 2014 did not demonstrate any angiographically significant appearing coronary artery disease: RCA stent was patent. Assessment AND Plan 1. Atherosclerosis of elim ira coronary artery of elim ira heart without angina pectoris I25.10 stent 3 y ago RCA; PTCA of RCA with SHANTANU 2010 s/p inf AMI Plan - JENNIFER Hines Stable, from a cardiac standpoint patient does not have any symptoms of angina. We recommend that they continue with current aggressive medical management and risk factor modification. 2. Paroxysmal atrial fibrillation I48.0 Plan - JENNIFER Hines Patient has not had any recurrence since his ablation. He is anticoagulated with a factor Xa inhibitor. He will continue with his current dose of beta-faheem. 3. Essential hypertension I10 Plan - JENNIFER Hines Blood pressure is well controlled on current medications, we do not recommend any changes at this time. 4. Pure hypercholesterolemia E78.00; E78.0 Plan - JENNIFER Hines Lipids are managed by his primary care doctor. We do share the same in EMR. Will evaluate once these are done. Do not recommend making any adjustments Plan Detail Other Medications New: Additional Comments - JENNIFER Hines The above patient was discussed with Dr. Randolph in Dr. Celis's absence, he agrees with plan of care. Thank you for allowing us to participate in patient's plan of care, if you have any questions please do not hesitate to call. This note was generated using a voice recognition system and there may be incorrect words, spelling or punctuation errors that were not noted when reviewing the office note prior to saving. Follow Up 9 Months (PFM) Coding Level of Care Code Off vis,est,level 3 Diagnoses Atherosclerosis of elim ira coronary artery of elim ira heart without angina pectoris I25.10 Coronary Disease-Associated Artery/Lesion type: elim ira artery [place] vs. transplanted heart: elim ira heart Associated angina: without angina Paroxysmal atrial fibrillation I48.0 Atrial fibrillation type: paroxysmal Essential hypertension I10 Hypertension type: essential hypertension Pure hypercholesterolemia E78.00; E78.0 Hyperlipidemia type: pure hypercholesterolemia Coding Level of Care Code Off vis,est,level 3 Diagnoses Atherosclerosis of elim ira coronary artery of elim ir[place] heart without angina pectoris I25.10 Coronary Disease-Associated Artery/Lesion type: elim ira artery [place] vs. transplanted heart: elim ira heart Associated angina: without angina Paroxysmal atrial fibrillation I48.0 Atrial fibrillation type: paroxysmal Essential hypertension I10 Hypertension type: essential hypertension Pure hypercholesterolemia E78.00; E78.0 Hyperlipidemia type: pure hypercholesterolemia 06/18/17 1026 <Electronically signed by Anita RODRIGUEZ> Date Anita RODRIGUEZ 06/19/17 1457<Electronically signed by Keith Randolph MD> Cosigner Signature: Date (if applicable) Keith Randolph MD CC: Fidel Maurer DO ALLERGIES ALLERGIES DATE TYPE / CODE NAME / CODE REACTION SEVERITY SOURCE 07/27/2017 Drug atorvastatin Unknown Unknown [place] Allergy/416 calcium/[id number]( [facility] [id number] [place] [address]) Repository ENCOUNTERS ENCOUNTERS ADMIT/DISCHARGE ACCOUNT ADMITTING ENCOUNTER LOCATION SOURCE NUMBER CLASS 04/25/2018 [id number] Ambulatory BMSBuilding:B [place] 4 MS.CF.WSA [facility] Hospital Repository 04/25/2018 [id number] Ambulatory [place] 8 [facility] ing:CVS Repository 04/09/2018 [id number] Ambulatory [place] 1 [facility] ing:LAB.FUTUR Repository E 04/04/2018 [id number] Ambulatory [place] 0 [facility] ing:LAB Repository 10/08/2017 [id number] Ambulatory [place] 9 [facility] ing:RAD Repository 07/27/2017/ [id number] Emergency [place] 8 6 [facility] ing:ED Repository 06/26/2017 [id number] Ambulatory [place] 3 [facility] ing:LAB Repository 06/18/2017/ [id number] Ambulatory BMSBuilding:B [place] 8 2 MS.WHG [facility] Repository PAYERS PAYERS ENCOUNTER GUARANTOR PAYER SUBSCRIBER SOURCE 04/25/2018 CYNTHIA STEWARD Primary CYNTHIA Card MEMORY Insurance:MEDICARE [facility] [place] [facility] [id number] Hospital [address]Ccd: [phone]) Number: Repository [phone] () [id number] Date:2018-03-28 04/25/2018 Secondary CNYTHIA L [place] Insurance:CIGNAPolicy WILESDOB: Community Number: [id number] Hospital [id number] Repository Date:3010-57-40[address], [place] [address]SG: 04/25/2018 Tertiary NOT GIVENUNK [place] Insurance:SELF PAY [facility]: Effective Repository Date:2018-04-25 04/25/2018 CYNTHIA MANDUJANO567 Primary CYNTHIA L [place] MEMORY Insurance:MEDICARE [place]DOB[place] olic [id number] Hospital [address]Bki: [phone]) Number: Repository [phone] () [id number] Date:2018-03-28 04/25/2018 Secondary CYNTHIA L [place] Insurance:CIGNAPolicy WILESDOB: Community Number: [id number] Hospital [id number] Repository Date:9910-16-05XZ [address], [place] [address]XZ: 04/25/2018 Tertiary NOT GIVENUNK [place] Insurance:SELF PAY [facility] Number: Effective Repository Date:2018-03-28 04/09/2018 CYNTHIA MANDUJANO567 Primary CYNTHIA L [place] MEMORY Insurance:MEDICARE WILESDOB: Community [place] PART A olic [id number] Hospital [address]Mbc: [phone]) Number: Repository [phone] () [id number] Date:2017-10-09 04/09/2018 Secondary CYNTHIA L [place] Insurance:CIGNAPolicy WILESDOB: Community Number: [id number] Hospital [id number] Repository Date:0572-69-42BR [address]CPW[address], [place] [address]CO: 04/09/2018 Tertiary NOT GIVENUNK [place] Insurance:SELF PAY [facility] INSURANCEPolicy Hospital Number: Effective Repository Date:2017-10-09 04/04/2018 CYNTHIA MANDUJANO567 Primary CYNTHIA L [place] MEM[place] Insurance:MEDICARE WILESDOB: Community [facility], [place] PART A [facility] [id number] [id number]: [phone]) Number: Repository [phone] () [id number] Date:2018-04-04 04/04/2018 Secondary CYNTHIA L [place] Insurance:CIGNAPolicy WILESDOB: Community Number: [id number] Hospital [id number] Repository Date:5598-41-38FQ [address]VHPXAF[address]F, [place] [address]BG: 04/04/2018 Tertiary NOT GIVENUNK [place] Insurance:SELF PAY [facility] Number: Effective Repository Date:2018-04-04 10/08/2017 CYNTHIA RINCON7 Primary CYNTHIA L [place] MEMORY Insurance:MEDICARE WILESDOB: [facility] PART A [facility] [id number] [id number]: [phone]) Number: Repository [phone] () [id number] Date:2017-10-08 10/08/2017 Secondary CYNTHIA L [place] Insurance:CIGNAPolicy WILESDOB: Community Number: [id number] Hospital [id number] Repository Date:4825-70-86LO [address]HWYMPQNFBLF, [place] [address]SH: 10/08/2017 Tertiary NOT GIVENUNK [place] Insurance:SELF PAY [facility] Number: Effective Repository Date:2017-10-08 07/27/2017 CYNTHIA RINCON7 Primary CYNTHIA L [place] Insurance:MEDICARE WILESDOB: [facility], [place] PART A [facility] [id number] [place] [address]Tel: Number: Repository [phone] [id number] () Date:2017-07-27 07/27/2017 Secondary CYNTHIA L [place] Insurance:CIGNAPolicy WILESDOB: Community Number: [id number] Hospital [id number] Repository Date:9571-09-97NP [facility] [address]BTJORKDM[place], [place] [address]CR: 07/27/2017 Tertiary NOT GIVENUNK [place] Insurance:SELF PAY [facility] Number: Effective Repository Date:2017-07-27 06/26/2017 CYNTHIA RINCON7 Primary CYNTHIA L [place] MEMORY Insurance:MEDICARE WILESDOB: [place] PART A [facility] [id number] Hospital [address]Oue: Number: Repository [phone] [id number] (HP) Date:2017-06-26 06/26/2017 Secondary CYNTHIA L [place] Insurance:CIGNAPolicy WILESDOB: Community Number: [id number] Hospital [id number] Repository Date:0131-88-95JZ [facility] [address]22[address]QDNANUOLHGZ, [place] [address]CJ: 06/26/2017 Tertiary NOT GIVENUNK [place] Insurance:SELF PAY [facility] Number: Effective Repository Date:2017-06-26 06/18/2017 CYNTHIA MANDUJANO567 Primary CYNTHIA L [place] MEM[place] Insurance:MEDICARE WILESDOB: [place] PART A [facility] [id number] Hospital [address]Gjr: Number: Repository [phone] [id number] (HP) Date:2017-03-16 06/18/2017 Secondary CYNTHIA L [place] Insurance:CIGNAPolicy WILESDOB: Community Number: [id number] Hospital [id number] Repository Date:9387-41-49NY [facility] [address]79[address]NYFNNZTZPWC, [place] [address]JJ: 06/18/2017 Tertiary NOT GIVENUNK [place] Insurance:SELF PAY [facility] Number: Effective Repository Date:2017-03-16
== END ==
PROVIDERS: Family Provider Family Medicine; PCP Family Medicine; Referring Provider Surgery; Visit Provider Surgery
DX: I65.23 Occlusion and stenosis of bilateral carotid arteries (principal)
CPT/HCPCS: 93880

== ENCOUNTER → 2019-01-01 06:03 | Outpatient (CLI) | payer MEDICARE, OTHER, SELFPAY ==
[2018-11-25 08:40] VITALS: BMI 36.0
[2019-01-01 07:35] LABS: Absolute Lymphocyte Count 1.47 X10^3/uL (0.83-4.51); Absolute Neutrophil Count 3.6 X10^3/uL (2.0-7.7); Basophil# 0.04 X10^3/uL; Basophil% 0.6 % (0-1); Eosinophil# 0.19 X10^3/uL; Eosinophils% 3.1 % (0-5); Hematocrit 43.2 % (40-54); Hemoglobin 14.5 g/dL (13.0-16.5); Lymphocyte # 1.47 X10^3/ul (4.0); Lymphocyte % 23.7 % (19-41); Mean Corp Hgb Conc 33.6 g/dL (32-36); Mean Corpuscular Hgb 31.4 pg (27.0-32.0); Mean Corpuscular Volume 93.5 fL (80-94); Mean Platelet Vol. 9.9 fl (6.2-12.0); Monocyte# 0.84 X10^3/uL; Monocyte% 13.5 % (0-10); NRBC Flagged by Analyzer 0 % (0-5); Neutrophil # 3.64 X10^3/uL (2.7-7.7); Neutrophil % 58.6 % (47-70); Platelet Count 183 K/mm3 (150-450); RBC Distribution Width CV 12.3 % (11.6-14.6); RBC Distribution Width SD 42.5 fl (35.1-43.9); Red Blood Count 4.62 M/mm3 (4.6-6.2); White Blood Count 6.2 K/mm3 (4.4-11.0)
[2019-01-01 08:05] LABS: AST(SGOT) 18 U/L (15-37); Alanine Aminotransfer ALT/SGPT 26 U/L (16-61); Albumin, Serum 3.2 g/dL (3.2-5.0); Alkaline Phosphatase 115 U/L (45-117); Anion Gap 7 (5-15); BUN 11 mg/dL (7-18); BUN/Creat Ratio 10.9 RATIO (10-20); Chloride 104 mmol/L (98-107); Cholesterol 126 mg/dL (200); Creatinine, Serum 1.01 mg/dL (0.70-1.30); EST Glomerular Filtration Rate 76 mL/min (>60); Est Glom Filt Rate - Afr Amer 92 mL/min (>60); Globulin 3.3 g/dL (2.2-4.2); Glucose 91 mg/dL (74-106); High Density Lipoprotein 52 mg/dL; Potassium 4.2 mmol/L (3.5-5.1); Protein, Total 6.5 g/dL (6.4-8.2); Sodium Level 143 mmol/L (136-145); T4 Free Direct 1.23 ng/dL (0.76-1.46); Thyroid Stim Hormone (TSH) 1.28 uIU/mL (0.358-3.74); Triglycerides 87 mg/dL; Very Low Density Lipoprotein 17 mg/dL (5-40)
[2019-01-01 09:00] LABS: T3 Total - Triiodothyronine 1.02 ng/mL (0.6-1.81)
== END ==
PROVIDERS: Family Provider Family Medicine; PCP Family Medicine; Referring Provider Family Medicine; Visit Provider Family Medicine
DX: I25.10 Atherosclerotic heart disease of native coronary artery without angina pectoris (principal); I48.91 Unspecified atrial fibrillation; I10 Essential (primary) hypertension; E78.5 Hyperlipidemia, unspecified; E03.9 Hypothyroidism, unspecified
CPT/HCPCS: 36415; 80053; 80061; 84439; 84443; 84480; 85025

== ENCOUNTER 2019-07-24 00:31 | Emergency (ER) | payer MEDICARE, OTHER, SELFPAY ==
[2018-11-25 08:40] VITALS: BMI 36.0
[2019-07-24] VITALS (7 sets, daily range): BP systolic 150–198; BP diastolic 57–87; PULSE 54–74; RESP 13–22; TEMP 36.5; O2SAT 95–98; BMI 36.6
--- NOTE | 2019-07-24 00:39 | EKG12_ITS ---
Test Reason : CP Blood Pressure : / mmHG Vent. Rate : 061 BPM Atrial Rate : 061 BPM P-R Int : 242 ms QRS Dur : 104 ms QT Int : 398 ms P-R-T Axes : 054 061 018 degrees QTc Int : 400 ms Sinus rhythm with 1st degree A-V block Low voltage QRS Borderline ECG Confirmed by HOMER CARTER, DELANEY ([id number]), production editor CYRUS ACEVEDO ([id number]) on 07/29/2019 9:13:02 AM Referred By: SCOTT Confirmed By:BERE CORONEL MD
--- NOTE | 2019-07-24 00:39 | RAD_ITS ---
STUDY: X-RAY CHEST REASON FOR EXAM: Male, 79 years old. New onset of right-sided chest pain and shortness of breath. TECHNIQUE: AP portable chest. COMPARISON: November 20, 2014. September 30, 2014. FINDINGS: The lungs are clear and expanded. There is no demonstrated pleural abnormality. Indistinct density left lung base present previously. Normal size heart. Normal mediastinum and harinder. Normal visualized pulmonary arteries. Normal visualized aortic arch and descending thoracic aorta. Degenerative changes of the thoracic spine. Normal visualized ribs, clavicles, and shoulders. There is no demonstrated abnormality of the visualized soft tissue structures of the upper abdomen. RAD/Chest 1 View (Portable) IMPRESSION: No acute cardiopulmonary disease. Electronically Signed: Tyler Licona MD at 1:22 EDT , Service support ,
[2019-07-24] MEDS: Aspirin 81 MG TAB.CHEW 324 MG PO (00:44)
[2019-07-24 00:48] LABS: Absolute Lymphocyte Count 2.76 X10^3/uL (0.83-4.51); Absolute Neutrophil Count 2.8 X10^3/uL (2.0-7.7); Basophil# 0.05 X10^3/uL; Basophil% 0.8 % (0-1); Eosinophil# 0.15 X10^3/uL; Eosinophils% 2.4 % (0-5); Hematocrit 43.7 % (40-54); Hemoglobin 14.7 g/dL (13.0-16.5); Lymphocyte # 2.76 X10^3/ul (4.0); Lymphocyte % 43.9 % (19-41); Mean Corp Hgb Conc 33.6 g/dL (32-36); Mean Corpuscular Hgb 31.2 pg (27.0-32.0); Mean Corpuscular Volume 92.8 fL (80-94); Mean Platelet Vol. 9.5 fl (6.2-12.0); Monocyte# 0.53 X10^3/uL; Monocyte% 8.4 % (0-10); NRBC Flagged by Analyzer 0 % (0-5); Neutrophil # 2.79 X10^3/uL (2.7-7.7); Neutrophil % 44.3 % (47-70); Platelet Count 187 K/mm3 (150-450); RBC Distribution Width SD 41.2 fl (35.1-43.9); Red Blood Count 4.71 M/mm3 (4.6-6.2); White Blood Count 6.3 K/mm3 (4.4-11.0)
[2019-07-24 01:02] LABS: Anion Gap 4 (5-15); BUN 15 mg/dL (7-18); Calcium,Total 9.4 mg/dL (8.5-10.1); Chloride 106 mmol/L (98-107); Creatinine, Serum 1.07 mg/dL (0.70-1.30); EST Glomerular Filtration Rate 71 mL/min (>60); Est Glom Filt Rate - Afr Amer 86 mL/min (>60); Estimated Creatinine Clearance 54.05 ml/min; Glucose 100 mg/dL (74-106); Sodium Level 141 mmol/L (136-145)
--- NOTE | 2019-07-24 01:34 | EKG12_ITS ---
Test Reason : REPEAT Blood Pressure : / mmHG Vent. Rate : 055 BPM Atrial Rate : 055 BPM P-R Int : 238 ms QRS Dur : 102 ms QT Int : 418 ms P-R-T Axes : 056 057 030 degrees QTc Int : 399 ms Sinus bradycardia with 1st degree A-V block Low voltage QRS Borderline ECG Confirmed by HOMER CARTER, DELANEY ([id number]), primer expeditor and drier CYRUS ACEVEDO ([id number]) on 07/29/2019 9:13:32 AM Referred By: SCOTT Confirmed By:BERE CORONEL MD
--- NOTE | 2019-07-24 02:59 | ED.DCSUM_ITS ---
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 He reports he has chest pain that began approximately 30 minutes ago while he was sitting on the commode. States that it lasted approximately 2 minutes and he was very lightheaded during this. He denies palpitations. He reports the pain was 5-10 at worst and is pain-free currently. Nothing seemed to make this worse including exertion or movement. Also nothing makes this better. He reports that he was nauseated and out of breath with this. Patient denies any recent chest pain or change in dyspnea exertion. He does report that he is had an occasional cough for the past 2 weeks. He denies any fever or chills. He denies sick contacts. He has been doing social isolation and lives at home with his . Physical Examination: Vitals: Stable. Afebrile. General: Well-nourished and well-developed. Head: Normocephalic atraumatic. Neck: Supple, no lymphadenopathy. No JVD. Nontender. Cardiovascular: Regular rate and rhythm. No murmurs. Respiratory: No respiratory distress. Clear to auscultation bilaterally. Abdominal: Soft, nontender, nondistended, normal bowel sounds. No guarding, rebound, or peritoneal signs. Back: Nontender. Extremities: Nontender, 1+ pitting edema of his lower extremities bilaterally. Skin: Normal color, no rash. Neurologic: Alert and oriented ?3. Cranial nerves II through XII are intact. Normal strength and sensation. Psych: Normal affect. Test Results: EKG is sinus at 61 with a first-degree AV block and artifact. Is unchanged from 2016. Repeat EKG is unchanged. CBC shows segmented neutrophils of 44 lymphocytes of 44. Chem-7 is normal. Initial troponin is negative. Repeat troponin is negative. Clinical Impression(s) from Imaging Studies Chest X-Ray 07/24/19 00:39 IMPRESSION: No acute cardiopulmonary disease. Electronically Signed: Tyler Licona MD at 1:22 EDT , Service support , Emergency Department Course and Treatment: Patient was given aspirin upon arrival. He is resting comfortably and has had no chest pain while here. Treatment Plan: Patient's pain is very atypical. It occurred at rest and lasted 2 minutes. Would like to go home. He will be discharged with instructions to follow-up with Dr. Celis as soon as possible for further evaluation and treatment. Return to the emergency department for any further chest pain, shortness of breath, or other concerns. Disposition: To home in improved and stable condition. Impression: 1. Atypical chest pain. 2. Heart score of 4. This note was generated with [employer] dictation software. It may contain incorrect words, spelling, and punctuation that were not noted in review of the chart prior to signing ED Disposition - Plan for ED Patient: Instructions: ED Chest Pain Atypical Unkn Cause Referrals: Varghese Celis MD [STAFF PHYSICIAN] - As soon as possible
--- NOTE | 2019-07-24 04:18 | ED.RN ---
PRESSURE APPLIED AND DRESSING PLACED AFTER PT BLED THROUGH INITIAL DRESSING.
== END 2019-07-24 04:22 | disposition home or self-care (01) ==
PROVIDERS: Emergency Provider Emergency Medicine; PCP Family Medicine
DX: R07.89 Other chest pain (principal); R11.0 Nausea; R05 Cough; R42 Dizziness and giddiness; R06.00 Dyspnea, unspecified; R60.0 Localized edema; I44.0 Atrioventricular block, first degree; I25.10 Atherosclerotic heart disease of native coronary artery without angina pectoris; I10 Essential (primary) hypertension; E78.00 Pure hypercholesterolemia, unspecified; I48.0 Paroxysmal atrial fibrillation; E03.9 Hypothyroidism, unspecified; I73.9 Peripheral vascular disease, unspecified; G47.33 Obstructive sleep apnea (adult) (pediatric); Z95.5 Presence of coronary angioplasty implant and graft; Z79.82 Long term (current) use of aspirin; Z79.01 Long term (current) use of anticoagulants; Z79.899 Other long term (current) drug therapy
CPT/HCPCS: 36415; 71045; 80048; 84484; 85025; 93005; 99285; A4216

== ENCOUNTER → 2019-08-08 05:58 | Outpatient (CLI) | payer MEDICARE, OTHER, SELFPAY ==
[2019-08-01 10:38] VITALS: BMI 35.0
[2019-08-08 07:40] LABS: AST(SGOT) 16 U/L (15-37); Alanine Aminotransfer ALT/SGPT 30 U/L (16-61); Albumin, Serum 3.6 g/dL (3.2-5.0); Alkaline Phosphatase 89 U/L (45-117); Bilirubin, Direct 0.18 mg/dL (0.00-0.30); Cholesterol 143 mg/dL (200); Globulin 2.9 g/dL (2.2-4.2); High Density Lipoprotein 55 mg/dL; Protein, Total 6.5 g/dL (6.4-8.2); Triglycerides 144 mg/dL; Very Low Density Lipoprotein 29 mg/dL (5-40)
== END ==
PROVIDERS: PCP Family Medicine; Referring Provider Internal Medicine Cardiovascular Disease; Visit Provider Internal Medicine Cardiovascular Disease
DX: E78.00 Pure hypercholesterolemia, unspecified (principal)
CPT/HCPCS: 36415; 80061; 80076

== ENCOUNTER → 2019-09-02 06:43 | Outpatient (CLI) | payer MEDICARE, OTHER, SELFPAY ==
[2019-08-01 10:38] VITALS: BMI 35.0
--- NOTE | 2019-09-02 06:44 | ECHOCS_ITS ---
Reason For Study: CAD/ASHD Procedure This was a 2D Doppler, Color Flow transthoracic echocardiogram. The study was technically difficult. Due to body habitus. Contrast injection was performed. Exam performed in department. Left Ventricle Normal LV size. Left ventricular systolic function is normal. The estimated ejection fraction is 65 %. No regional wall motion abnormalities noted. Right Ventricle Normal RV size. Normal systolic function. Atria The left atrium is mildly enlarged. Normal right atrium. No doppler evidence for ASD. Mitral Valve There is no mitral annular calcification. Mild focal mitral valve calcification of the anterior leaflet. Trivial mitral valve insufficiency. Tricuspid Valve Normal tricuspid valve. Trivial tricuspid valve insufficiency. Unable to estimate RV systolic pressure/pulmonary artery pressure due to technically difficult study. Aortic Valve The aortic valve is not well visualized. Trivial aortic valve insufficiency. Pulmonic Valve The pulmonic valve is not well visualized. Great Vessels Normal sized aortic root. Pericardium/Pleural No pericardial effusion. Medication Diluted definity 4.0ml given slow IV push to enhance endocardial definition. MMode/2D Measurements & Calculations LVIDd: 4.4 cm IVSd: 1.1 cm Ao root diam: 3.6 cm LVIDs: 3.0 cm LVPWd: 1.0 cm RVDd: 3.5 cm FS: 31.6 % LAV(MOD-bp): 63.5 ml LA A4 area: 21.7 cm2 LA dimension(2D): 3.3 cm LAV(MOD-bp) Indexed: 29.9 ml/m2 LAV(MOD-sp2): 60.2 ml LAV(MOD-sp4): 60.3 ml RA A4 area: 16.1 cm2 Time Measurements MV dec time: 0.19 sec Doppler Measurements & Calculations MV E max juan: 90.9 cm/sec Lat Peak E' Juan: 7.6 cm/sec Med Peak E' Juan: 6.5 cm/sec MV A max juan: 29.5 cm/sec E/E' lat: 11.9 E/E' med: 14.1 MV E/A: 3.1 Ao V2 max: 108.0 cm/sec LV V1 max: 79.0 cm/sec PA V2 max: 87.5 cm/sec Ao max P.7 mmHg LV V1 max P.5 mmHg Interpretation Summary The study was technically difficult. Contrast injection was performed. Left ventricular systolic function is normal. The estimated ejection fraction is 65 %. The left atrium is mildly enlarged. Mild focal mitral valve calcification of the anterior leaflet. Trivial mitral valve insufficiency. Trivial tricuspid valve insufficiency. Trivial aortic valve insufficiency. Unable to estimate RV systolic pressure/pulmonary artery pressure due to technically difficult study. Transmitral diastolic flow velocities suggest diastolic dysfunction (pseudonormal pattern). Ordering Physician: Varghese Celis Referring Physician: Fidel Maurer Performed By: Bernie Shearer, EVANGELISTA, RVT
--- NOTE | 2019-09-02 08:23 | STRESSREP ---
Stress Test Report Date: 09-02-2019 Procedure: Pharmacologic stress nuclear imaging study Indications: Shortness of breath/dyspnea; CAD; PCI; paroxysmal atrial dysrhtymia; status post EPS/RFA Consent: Per the patient Procedure: The patient underwent pharmacologic (Regadenoson) evaluation with a peak heart rate of 83 beats per minute (58 %predicted maximal heart rate) and a peak blood pressure of 142/76 mmHg. The baseline ECG demonstrated sinus versus ectopic atrial bradycardia; low voltage QRS. The peak pharmacologic ECG demonstrated no obvious ECG changes. There was a 3 beat wide-complex rhythm pretest appearing compatible with an idioventricular rhythm. There was no complaint of chest discomfort during pharmacologic infusion or recovery. The examination was discontinued secondary to completion of protocol. Impression: 1. Pharmacologic (Regadenoson) evaluation 2. Peak pharmacologic ECG with no obvious ECG changes. 3. There was a 3 beat wide-complex rhythm pretest appearing compatible with an idioventricular rhythm. 4. Nuclear images pending Myocardial perfusion imaging study: Technique: The patient was injected with 15.0 millicuries of technetium 99m Cardiolite and subsequently rest SPECT Cardiolite nuclear imaging was obtained in the horizontal long, vertical long, and short axis views. The patient underwent pharmacologic (Regadenoson) evaluation with a peak heart rate of 83 beats per minute (58 % percent predicted maximal heart rate) and a peak blood pressure of 142/76 mmHg. The patient was injected with 45.0 millicuries of technetium 99m Cardiolite and subsequently stress SPECT Cardiolite nuclear imaging was obtained in the horizontal long, vertical long, and short axis views. A gated Cardiolite study at peak stress was obtained. Interpretation: Rest and stress SPECT Cardiolite nuclear imaging status post realignment, normalization, and attenuation correction demonstrate area of subtle diminished tracer uptake near the apical areas without significant change between rest and stress. There is end systolic thickening and brightening. The gated Cardiolite study demonstrates myocardial thickening and inward wall motion. The reported LVEF is 72 %. Impression: 1. Rest and stress SPECT Cardiolite nuclear imaging demonstrate myocardial perfusion changes compatible with physiologic apical thinning with no myocardial perfusion changes considered diagnostic for associated stress-induced myocardial ischemia. 2. The gated Cardiolite study reports an LVEF of 72 %. This note was generated with [employer] software. It may contain incorrect words, spelling, and punctuation that were not noted in checking the note before signing.
== END ==
PROVIDERS: PCP Family Medicine; Referring Provider Internal Medicine Cardiovascular Disease; Visit Provider Internal Medicine Cardiovascular Disease
DX: I25.10 Atherosclerotic heart disease of native coronary artery without angina pectoris (principal); R07.9 Chest pain, unspecified; Z95.5 Presence of coronary angioplasty implant and graft
CPT/HCPCS: 78452; 93017; 93306; A9500; Q9957; A4216; C8929; J2785

== ENCOUNTER → 2019-11-20 11:55 | Outpatient (CLI) | payer MEDICARE, OTHER, SELFPAY ==
[2019-11-05 11:05] VITALS: BMI 33.8
--- NOTE | 2019-11-20 12:28 | MRI_ITS ---
STUDY: MRI BRAIN WITH AND WITHOUT CONTRAST (ATTENTION INTERNAL AUDITORY CANALS - I.A.C.''s) REASON FOR EXAM: Male, 79 years old. dizziness, attn IACs TECHNIQUE: Standardized multiplanar fat and water weighted pulse sequences were obtained. IV Yes YES was administered for the contrast portion of the examination. COMPARISON: None. FINDINGS: Normal bilateral temporal bones. Normal bilateral internal auditory canals. There is no demonstrated intracanalicular or cisternal vestibular schwannoma (acoustic neuroma). There is no enhancement of the bilateral VIIth or VIIIth cranial nerves. Normal bilateral cochlea, vestibules and semicircular canals. Normal size of the ventricles and extra-axial spaces for the patient''s age. Normal white matter tracts of the supratentorial brain. There is no evidence for recent intracranial ischemia or other cause of cytotoxic edema on diffusion weighted imaging (DWI). Normal bilateral basal ganglia. Normal thalami. Normal flow voids within the major intracranial circulation suggesting patency by spin echo criteria. Normal venous enhancement. There is no enhancing intra-axial or extra-axial abnormality. There is no extra-axial fluid accumulation. Normal sella turcica, pituitary gland, infundibular stalk, optic chiasm and hypothalamus. Normal tectal plate and pineal gland. Normal midbrain, rocky and medulla. Normal cerebellum. Normal basal cisterns. No demonstrated orbital abnormality, within the constraints of a routine brain study. Normal visualized paranasal sinuses. Normal calvarium and skull base. Normal visualized soft tissue structures. Normal visualized upper cervical spine. MRI/Brain W/WO Contrast IMPRESSION: Normal unenhanced and enhanced MRI of the bilateral internal auditory canals (I.A.C''s). Electronically Signed: Isaiah Reddy MD at 14:04 EDT Tel , Service support ,
[2019-11-20 12:36] LABS: EGFR FINGERSTICK > 60.0000 mL/min (>60)
== END ==
PROVIDERS: PCP Family Medicine; Referring Provider Otolaryngology; Visit Provider Otolaryngology
DX: R42 Dizziness and giddiness (principal)
CPT/HCPCS: 70553; A9575

== ENCOUNTER 2019-12-16 15:00 | Outpatient (RCR) | payer MEDICARE, OTHER, SELFPAY ==
[2019-11-05 11:05] VITALS: BMI 33.8
--- NOTE | 2019-12-01 08:49 | HP.PTEVAL_ITS ---
Patient's Visit Information CYNTHIA MANDUJANO is a 79 year old M referred to Physical Therapy by Dr. Lawrence iLang MD with a diagnosis of vertigo. Date of Evaluation: 12/01/19 Physical Therapist: Ramiro Mills, ABHIJEET, OCS, CSCS - Visit Plan Frequency: 1x/Week Duration: 4-6 Weeks Plan: f/u next session to check VOR walking and head turns, will d/c if no changes as I am not convinced this is a vestibular issue. - Subjective Has had dizzyness for a year or longer. Slightly worsening. Has had ENT visits , multiple scans, brain scan(normal), Have not found a reason for it so sent for therapy. Heart has been checked. Onset was insidious. Dizzyness is descirbed as lightheadedness mostly. Getting up in morning is lightheaded for 2-3 minutes. Not sure what else causes it but does get it more frequently. Gets this 1-2 x/day. Feels normal the rest of day. Can get a minute of lightheadedness. May spin now and then but not frequent. Fell one time and needs to hold on in the morning. Balance pretty good otherwise. sleep is good. No neuropathy but has had epidural in back for R leg pain which really helped. 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 Has had PT for neck in past. H/O frozen shoulder R. Uses CPAP. Not employed. Spends day doing very little, no regular exercise. Avoids some activities due to leg pain and h/o neck pain. Basic ADLs are getting done. Has to hold on sometimes. - Objective Walks and trasnfers with ease. steps reciprocal without rail today. VOR walking slighty challenging but safe, hard time disassociatiing head from body movement. cervical aROM WFL. - B hallpike valentine and - roll test. MSQ positions are not bothersome outside of quick dizzy /lightheaded feeling with head turns x 2 seconds. oculomotor is unremarkable: no nystagmus with gazee or head shake. - head thrust. - ocular tilt, - skew eye deviation. Pursuit and saccadesa are normal. VOr is normal but slight dizzy after horiz for 1 second. - Balance Scores Functional Gait Assessment Score: 28 % Disability: 6.6700 CATSIB Score (Max score 120 seconds): 120 - Goals Goal 1:: abolish am vertigo Goal Time Frame: 2-4 Weeks - Rehabilitation Potential Physical Therapy Diagnosis: Vertigo unknown etiology, vestibular vs blood pr essure Rehabilitation Potential: Questionable - Anticipated Interventions Patient/Client Instruction: Educate patient on: Condition, Plan of Care For the Purpose of:: To increase tolerance to activity/condition/position Comment: vestibular ex as helpful For the Purpose of:: To increase tolerance to activity/condition/position Thank you for the opportunity to evaluate your patient. For Medicare and Medicare HMO plans, please review the plan of care and approve it. It will need to be FAXED BACK to us at [phone] for Medicare purposes. For Medicare only, by signing this I certify the plan of care. Please let me know if there are questions or concerns regarding this plan of care. Physician Signature: Date:
--- NOTE | 2019-12-16 15:18 | HP.PTDCSUM ---
It has been my pleasure to treat CYNTHIA MANDUJANO referred by Dr. Lawrence Liang MD, with the diagnosis of vertigo for a total of 2 visit(s). Discharge Date: 12/16/19 Please see the following information for a summary of their discharge status. Subjective: No problem getting up in the am...it is unbelievable. Lightheaded here adn there. No more spinning. 6x/day with exercises, 60 sec horiz and vertical. Feels slight issue on top of head at times but not bad. Feels back to normal. Balance is normal most of time. Has been doing a lot of work on the deck, up and down and bending. % Improvement: 90 Objective/Function: Balance is good even with walking VOR much better speed adn movement. - B hallpike valentine today. - VOR and VOR x2 H and V not creating symptoms adn no problem. Goal 1:: abolish am vertigo Goal Progress: Goal Met Plan: d/c, pt to call Dr. Liang in a week for guidance asneeded but is doing well at this point. If there are questions or concerns regarding this patient's physical therapy, please feel free to call me at [phone]. Thank you for the referral of this patient. Sincerely, Ramiro Mills, DPT, OCS, CSCS
== END 2019-12-16 19:00 | disposition home or self-care (01) ==
LOC: PT 15:00
PROVIDERS: PCP Family Medicine; Referring Provider Otolaryngology; Visit Provider Otolaryngology
DX: R42 Dizziness and giddiness (principal)
CPT/HCPCS: 97162; 97164

== ENCOUNTER → 2020-01-02 06:05 | Outpatient (CLI) | payer MEDICARE, OTHER, SELFPAY ==
[2019-11-05 11:05] VITALS: BMI 33.8
[2020-01-02 07:22] LABS: Absolute Neutrophil Count 4.3 X10^3/uL (2.0-7.7); Basophil# 0.04 X10^3/uL; Basophil% 0.6 % (0-1); Eosinophil# 0.11 X10^3/uL; Eosinophils% 1.7 % (0-5); Hematocrit 43.4 % (40-54); Hemoglobin 14.2 g/dL (13.0-16.5); Mean Corp Hgb Conc 32.7 g/dL (32-36); Mean Corpuscular Hgb 30.6 pg (27.0-32.0); Mean Corpuscular Volume 93.5 fL (80-94); Mean Platelet Vol. 10.1 fl (6.2-12.0); Monocyte# 0.62 X10^3/uL; Monocyte% 9.8 % (0-10); NRBC Flagged by Analyzer 0 % (0-5); Neutrophil # 4.31 X10^3/uL (2.7-7.7); Neutrophil % 68.6 % (47-70); Platelet Count 195 K/mm3 (150-450); RBC Distribution Width CV 12.1 % (11.6-14.6); RBC Distribution Width SD 41.7 fl (35.1-43.9); Red Blood Count 4.64 M/mm3 (4.6-6.2); White Blood Count 6.3 K/mm3 (4.4-11.0)
[2020-01-02 08:04] LABS: ALB/GLOB Ratio 1.2 RATIO (0.9-2.4); AST(SGOT) 13 U/L (15-37); Alanine Aminotransfer ALT/SGPT 23 U/L (16-61); Albumin, Serum 3.5 g/dL (3.2-5.0); Alkaline Phosphatase 111 U/L (45-117); Anion Gap 3 (5-15); BUN 14 mg/dL (7-18); BUN/Creat Ratio 13.2 RATIO (10-20); Calcium,Total 9.2 mg/dL (8.5-10.1); Chloride 105 mmol/L (98-107); Creatinine, Serum 1.06 mg/dL (0.70-1.30); EST Glomerular Filtration Rate 72 mL/min (>60); Est Glom Filt Rate - Afr Amer 87 mL/min (>60); Glucose 97 mg/dL (74-106); Potassium 4.1 mmol/L (3.5-5.1); Protein, Total 6.5 g/dL (6.4-8.2); Sodium Level 139 mmol/L (136-145); T4 Free Direct 1.12 ng/dL (0.76-1.46); Thyroid Stim Hormone (TSH) 1.48 uIU/mL (0.358-3.74)
[2020-01-02 08:16] LABS: Microalbumin,Random Urine < 5.0 mg/L (NO RANGE EST.)
[2020-01-02 08:23] LABS: Vitamin D,25 Hydroxy 52.1 ng/mL
== END ==
PROVIDERS: PCP Family Medicine; Referring Provider Family Medicine; Visit Provider Family Medicine
DX: E03.9 Hypothyroidism, unspecified (principal); I10 Essential (primary) hypertension; I25.10 Atherosclerotic heart disease of native coronary artery without angina pectoris; E78.5 Hyperlipidemia, unspecified; E55.9 Vitamin D deficiency, unspecified
CPT/HCPCS: 36415; 80053; 82043; 82306; 82570; 84439; 84443; 85025

== ENCOUNTER → 2020-02-09 06:05 | Outpatient (CLI) | payer MEDICARE, OTHER, SELFPAY ==
[2019-11-05 11:05] VITALS: BMI 33.8
[2020-02-09 08:04] LABS: AST(SGOT) 17 U/L (15-37); Alanine Aminotransfer ALT/SGPT 28 U/L (16-61); Albumin, Serum 3.4 g/dL (3.2-5.0); Alkaline Phosphatase 109 U/L (45-117); Bilirubin, Direct 0.12 mg/dL (0.00-0.30); Cholesterol 149 mg/dL (200); Globulin 3.2 g/dL (2.2-4.2); High Density Lipoprotein 59 mg/dL; Protein, Total 6.6 g/dL (6.4-8.2); Triglycerides 116 mg/dL; Very Low Density Lipoprotein 23 mg/dL (5-40)
== END ==
PROVIDERS: PCP Family Medicine; Referring Provider Internal Medicine Cardiovascular Disease; Visit Provider Internal Medicine Cardiovascular Disease
DX: E78.00 Pure hypercholesterolemia, unspecified (principal)
CPT/HCPCS: 36415; 80061; 80076

== ENCOUNTER → 2020-04-12 07:29 | Outpatient (CLI) | payer MEDICARE, OTHER, SELFPAY ==
[2019-11-05 11:05] VITALS: BMI 33.8
--- NOTE | 2020-04-12 07:34 | CDU_ITS ---
Reason For Study: CAROTID STENOSIS Rt. Velocities/BP Lt. Velocities/BP Prox CCA 122.2/18.1 cm/sec. Prox CCA 139.9/19.4 cm/sec. Mid CCA 105.8/21.7 cm/sec. Mid CCA 125.2/21.2 cm/sec. Dist CCA 96.6/16.3 cm/sec. Dist CCA 80.9/13.4 cm/sec. Prox ICA 69.0/16.2 cm/sec. Prox ICA 80.9/13.4 cm/sec. Mid ICA 71.1/15.8 cm/sec. Mid ICA 71.1/23.2 cm/sec. Dist ICA 105.2/24.8 cm/sec. Dist ICA 73.6/20.8 cm/sec. Rt. ICA/CCA = 105.2/122.2=0.9. Lt. ICA/CCA = 125.2/80.9=0.6. Prox ECA 91.1/8.9 cm/sec. Prox ECA 161.6/15.7 cm/sec. Rt. Vert. 91.1/8.9 cm/sec. Lt. Vert. 46.2/13.1 cm/sec. Right Extracranial There is heterogeneous, irregular atherosclerotic plaque noted in the right common carotid artery. There is homogeneous, smooth atherosclerotic plaque noted in the right internal carotid artery. There is homogeneous, smooth atherosclerotic plaque noted in the right external carotid artery. Antegrade flow is noted in the right vertebral artery. Left Extracranial There is heterogeneous, irregular atherosclerotic plaque noted in the left common carotid artery. There is heterogeneous, irregular atherosclerotic plaque noted in the left internal carotid artery. There is heterogeneous, irregular atherosclerotic plaque noted in the left external carotid artery. Antegrade flow is noted in the left vertebral artery. Procedure Carotid Duplex [id number]. Exam performed in department. Interpretation Summary Smooth plaque at the proximal right internal carotid artery with less than 50% stenosis Postoperative changes right carotid bulb and proximal internal carotid artery Less than 50% stenosis right external carotid artery Irregular calcific plaque left distal common carotid artery. Minimal irregular plaque within the proximal left internal carotid artery. Less than 50% stenosis left internal carotid artery Less than 50% stenosis left external carotid artery Patent and antegrade vertebrals bilaterally No change from the previous examination of April 25, 2018 Ordering Physician: Won Noel Referring Physician: Fidel Maurer Performed By: Bernie Shearer, EVANGELISTA, RVT
== END ==
PROVIDERS: PCP Family Medicine; Referring Provider Surgery; Visit Provider Surgery
DX: I65.23 Occlusion and stenosis of bilateral carotid arteries (principal)
CPT/HCPCS: 93880

== ENCOUNTER → 2020-07-29 05:50 | Outpatient (CLI) | payer MEDICARE, OTHER, SELFPAY ==
[2020-04-22 09:10] VITALS: BMI 33.0
[2020-07-29 07:51] LABS: AST(SGOT) 13 U/L (15-37); Alanine Aminotransfer ALT/SGPT 26 U/L (16-61); Albumin, Serum 3.5 g/dL (3.2-5.0); Alkaline Phosphatase 100 U/L (45-117); Bilirubin, Direct 0.18 mg/dL (0.00-0.30); Cholesterol 148 mg/dL (200); Globulin 3.1 g/dL (2.2-4.2); High Density Lipoprotein 59 mg/dL; Protein, Total 6.6 g/dL (6.4-8.2); Triglycerides 116 mg/dL; Very Low Density Lipoprotein 23 mg/dL (5-40)
== END ==
PROVIDERS: Internal Medicine Cardiovascular Disease; PCP Family Medicine; Referring Provider Internal Medicine Cardiovascular Disease; Visit Provider Internal Medicine Cardiovascular Disease
DX: E78.00 Pure hypercholesterolemia, unspecified (principal)
CPT/HCPCS: 36415; 80061; 80076

== ENCOUNTER → 2021-01-03 06:03 | Outpatient (CLI) | payer MEDICARE, OTHER, SELFPAY ==
[2021-01-03 07:26] LABS: Absolute Lymphocyte Count 1.74 X10^3/uL (0.83-4.51); Absolute Neutrophil Count 4.1 X10^3/uL (2.0-7.7); Basophil# 0.05 X10^3/uL; Basophil% 0.8 % (0-1); Eosinophil# 0.13 X10^3/uL; Hematocrit 46.2 % (40-54); Hemoglobin 15.5 g/dL (13.0-16.5); Lymphocyte # 1.74 X10^3/ul (0.83-4.51); Lymphocyte % 26.5 % (19-41); Mean Corp Hgb Conc 33.5 g/dL (32-36); Mean Corpuscular Hgb 31.2 pg (27.0-32.0); Mean Platelet Vol. 10.2 fl (6.2-12.0); Monocyte# 0.55 X10^3/uL; Monocyte% 8.4 % (0-10); NRBC Flagged by Analyzer 0 % (0-5); Neutrophil # 4.06 X10^3/uL (2.7-7.7); Neutrophil % 61.8 % (47-70); Platelet Count 206 K/mm3 (150-450); RBC Distribution Width CV 12.2 % (11.6-14.6); Red Blood Count 4.97 M/mm3 (4.6-6.2); White Blood Count 6.6 K/mm3 (4.4-11.0)
[2021-01-03 08:12] LABS: AST(SGOT) 15 U/L (15-37); Alanine Aminotransfer ALT/SGPT 22 U/L (16-61); Albumin, Serum 3.4 g/dL (3.2-5.0); Alkaline Phosphatase 104 U/L (45-117); Anion Gap 6 (5-15); BUN 11 mg/dL (7-18); BUN/Creat Ratio 10.8 RATIO (10-20); Bilirubin, Direct 0.13 mg/dL (0.00-0.30); Chloride 104 mmol/L (98-107); Cholesterol 141 mg/dL (200); Creatinine, Serum 1.02 mg/dL (0.70-1.30); EST Glomerular Filtration Rate 75 mL/min (>60); Est Glom Filt Rate - Afr Amer 91 mL/min (>60); Globulin 3.1 g/dL (2.2-4.2); Glucose 100 mg/dL (74-106); High Density Lipoprotein 50 mg/dL; Potassium 4.3 mmol/L (3.5-5.1); Protein, Total 6.5 g/dL (6.4-8.2); Sodium Level 142 mmol/L (136-145); T4 Free Direct 1.21 ng/dL (0.76-1.46); Thyroid Stim Hormone (TSH) 0.78 uIU/mL (0.358-3.74); Triglycerides 140 mg/dL; Very Low Density Lipoprotein 28 mg/dL (5-40)
[2021-01-03 08:46] LABS: Vitamin D,25 Hydroxy 41.6 ng/mL
== END ==
PROVIDERS: Internal Medicine Cardiovascular Disease; PCP Family Medicine; Referring Provider Family Medicine; Visit Provider Family Medicine
DX: E03.9 Hypothyroidism, unspecified (principal); E55.9 Vitamin D deficiency, unspecified; E78.00 Pure hypercholesterolemia, unspecified; Z51.81 Encounter for therapeutic drug level monitoring; Z79.01 Long term (current) use of anticoagulants
CPT/HCPCS: 80048; 80061; 80076; 82306; 84439; 84443; 85025

== ENCOUNTER → 2021-08-12 | Outpatient (CLI) | payer MEDICARE, OTHER, SELFPAY ==
--- NOTE | 2021-08-12 08:45 | ART_ITS ---
Reason For Study: PVD Procedure A bilateral lower extremity continuous wave Doppler with analog waveform analysis,segmental pressures,and ankle brachial indexes without exercise. Left Segmental Pressures Left brachial= 167mmHg. Left digit = 123 mmHg. The left dorsalis pedis waveforms are triphasic. The left posterior tibial artery waveforms are triphasic. MANAGING JEWELER and DPA are noncompressible. Right Segmental Pressures Right brachial= 161mmHg. Right digit = 127 mmHg. The right dorsalis pedis waveforms are triphasic. The right posterior tibial artery waveforms are triphasic. MANAGING JEWELER and DPA are noncompressible. Indices The right digital-brachial index is .76. The left digital-brachial index is .74. VL/Lower Ext Art Exam w/ Exercise Interpretation Summary Noncompressible bilateral dorsalis pedis and posterior tibialis vessels making ankle-brachial indices at rest not calculable Bilateral dorsalis pedis and posterior tibialis Doppler waveforms are triphasic suggesting a more mild amount of disease. Right digital brachial index is 0.76 and the left digital brachial index is 0.7 4 both borderline abnormal Ordering Physician: Won Noel Performed By: Jose Brennan RVT
== END | disposition home or self-care (01) ==
LOC: CVS 08:44
PROVIDERS: PCP Family Medicine; Visit Provider Surgery
DX: I73.9 Peripheral vascular disease, unspecified (principal)
CPT/HCPCS: 93924

== ENCOUNTER → 2021-09-16 | Outpatient (CLI) | payer MEDICARE, OTHER, SELFPAY ==
--- NOTE | 2021-09-16 07:47 | CDU_ITS ---
Reason For Study: Carotid stenosis Rt. Velocities/BP Lt. Velocities/BP Prox CCA 65.6/8.2 cm/sec. Prox CCA 93.7/13.3 cm/sec. Mid CCA 86.5/17.3 cm/sec. Mid CCA 102.8/13.3 cm/sec. Dist CCA 82.6/17.3 cm/sec. Dist CCA 77.3/17 cm/sec. Prox ICA 61.7/16 cm/sec. Prox ICA 56.9/12.6 cm/sec. Mid ICA 91.7/23.9 cm/sec. Mid ICA 79/22.5 cm/sec. Dist ICA 82.5/17.3 cm/sec. Dist ICA 70.4/18.8 cm/sec. Rt. ICA/CCA = 1.11. Lt. ICA/CCA = 0.84. Prox ECA 100.8/13.4 cm/sec. Prox ECA 198.2/18.2 cm/sec. Rt. Vert. 47.6/12.4 cm/sec. Lt. Vert. 49.8/13.5 cm/sec. Right Extracranial There is heterogeneous, irregular atherosclerotic plaque noted in the right common carotid artery. There is homogeneous, smooth atherosclerotic plaque noted in the right internal carotid artery. There is homogeneous, smooth atherosclerotic plaque noted in the right external carotid artery. Antegrade flow is noted in the right vertebral artery. Left Extracranial There is heterogeneous, irregular atherosclerotic plaque noted in the left common carotid artery. There is heterogeneous, irregular atherosclerotic plaque noted in the left internal carotid artery. There is heterogeneous, irregular atherosclerotic plaque noted in the left external carotid artery. Antegrade flow is noted in the left vertebral artery. Procedure Carotid Duplex [id number]. This is a Carotid Duplex examination using B-mode, color flow and specral Doppler. Exam performed in department. VL/Carotid Duplex Ultrasound Interpretation Summary Operative change of the right carotid bulb and proximal internal carotid artery with smooth plaque and less than 50% stenosis Less than 50% stenosis right external carotid artery Minimal irregular plaque at the proximal left internal carotid artery with less than 50% stenosis Less than 50% stenosis left external carotid artery Patent and antegrade vertebral arteries bilaterally No change from April 12, 2020 Ordering Physician: Won Noel Referring Physician: Fidel Maurer Performed By: Effie Pandey RVT
== END | disposition home or self-care (01) ==
LOC: CVS 07:46
PROVIDERS: PCP Family Medicine; Referring Provider Surgery; Visit Provider Surgery
DX: I65.21 Occlusion and stenosis of right carotid artery (principal)
CPT/HCPCS: 93880

== ENCOUNTER → 2022-01-17 | Outpatient (CLI) | payer MEDICARE, OTHER, SELFPAY ==
[2022-01-17 06:44] LABS: Absolute Lymphocyte Count 1.77 X10^3/uL (0.83-4.51); Absolute Neutrophil Count 3.6 X10^3/uL (2.0-7.7); Basophil# 0.07 X10^3/uL; Basophil% 1.1 % (0-1); Eosinophil# 0.15 X10^3/uL; Eosinophils% 2.4 % (0-5); Hematocrit 45.3 % (40-54); Hemoglobin 15.2 g/dL (13.0-16.5); Lymphocyte # 1.77 X10^3/ul (0.83-4.51); Lymphocyte % 28.7 % (19-41); Mean Corp Hgb Conc 33.6 g/dL (32-36); Mean Corpuscular Hgb 31.5 pg (27.0-32.0); Mean Corpuscular Volume 93.8 fL (80-94); Mean Platelet Vol. 9.5 fl (6.2-12.0); Monocyte# 0.56 X10^3/uL; Monocyte% 9.1 % (0-10); NRBC Flagged by Analyzer 0 % (0-5); Neutrophil % 58.4 % (47-70); Platelet Count 202 K/mm3 (150-450); RBC Distribution Width CV 12.4 % (11.6-14.6); RBC Distribution Width SD 42.5 fl (35.1-43.9); Red Blood Count 4.83 M/mm3 (4.6-6.2); White Blood Count 6.2 K/mm3 (4.4-11.0)
[2022-01-17 07:17] LABS: AST(SGOT) 16 U/L (15-37); Alanine Aminotransfer ALT/SGPT 27 U/L (16-61); Albumin, Serum 3.5 g/dL (3.2-5.0); Alkaline Phosphatase 100 U/L (45-117); Anion Gap 4 (5-15); BUN 20 mg/dL (7-18); BUN/Creat Ratio 20.4 RATIO (10-20); Bilirubin, Direct 0.16 mg/dL (0.00-0.30); Calcium,Total 9.1 mg/dL (8.5-10.1); Chloride 106 mmol/L (98-107); Cholesterol 158 mg/dL (200); Creatinine, Serum 0.98 mg/dL (0.70-1.30); EST Glomerular Filtration Rate 78 mL/min (>60); Est Glom Filt Rate - Afr Amer 95 mL/min (>60); Globulin 3.4 g/dL (2.2-4.2); Glucose 101 mg/dL (74-106); High Density Lipoprotein 56 mg/dL; Potassium 4.2 mmol/L (3.5-5.1); Protein, Total 6.9 g/dL (6.4-8.2); Sodium Level 142 mmol/L (136-145); T4 Free Direct 1.22 ng/dL (0.76-1.46); Thyroid Stim Hormone (TSH) 1.35 uIU/mL (0.358-3.74); Triglycerides 115 mg/dL; Very Low Density Lipoprotein 23 mg/dL (5-40)
== END | disposition home or self-care (01) ==
LOC: LAB 06:17
PROVIDERS: Internal Medicine Cardiovascular Disease; PCP Family Medicine; Referring Provider Family Medicine; Visit Provider Family Medicine
DX: E03.9 Hypothyroidism, unspecified (principal); E55.9 Vitamin D deficiency, unspecified; I25.10 Atherosclerotic heart disease of native coronary artery without angina pectoris; E78.5 Hyperlipidemia, unspecified; Z79.01 Long term (current) use of anticoagulants; Z51.81 Encounter for therapeutic drug level monitoring
CPT/HCPCS: 36415; 80048; 80061; 80076; 82306; 84439; 84443; 85025

== ENCOUNTER → 2022-05-22 | Outpatient (CLI) | payer MEDICARE, OTHER, SELFPAY ==
[2022-05-22 10:40] LABS: Anion Gap 5 (5-15); BUN 9 mg/dL (7-18); BUN/Creat Ratio 9.2 RATIO (10-20); Calcium,Total 9.5 mg/dL (8.5-10.1); Chloride 105 mmol/L (98-107); Creatinine, Serum 0.98 mg/dL (0.70-1.30); EST Glomerular Filtration Rate 78 mL/min (>60); Est Glom Filt Rate - Afr Amer 95 mL/min (>60); Glucose 105 mg/dL (74-106); Potassium 4.3 mmol/L (3.5-5.1); Sodium Level 141 mmol/L (136-145)
== END | disposition home or self-care (01) ==
LOC: LAB 09:00
PROVIDERS: PCP Family Medicine; Referring Provider Nurse Practitioner Family; Visit Provider Nurse Practitioner Family
DX: I25.10 Atherosclerotic heart disease of native coronary artery without angina pectoris (principal); Z95.5 Presence of coronary angioplasty implant and graft; I10 Essential (primary) hypertension
CPT/HCPCS: 36415; 80048

== ENCOUNTER → 2022-08-07 | Outpatient (CLI) | payer MEDICARE, OTHER, SELFPAY ==
--- NOTE | 2022-08-07 08:40 | ART_ITS ---
Reason For Study: PVD Procedure A bilateral lower extremity continuous wave Doppler with analog waveform analysis,segmental pressures,and ankle brachial indexes with exercise. Left Segmental Pressures Left brachial= 156mmHg. Left posterior tibial artery = 200mmHg. Left dorsalis pedis artery = 209mmHg. Left digit = 128 mmHg. The left posterior tibial artery waveforms are triphasic. The left dorsalis pedis waveforms are triphasic. Right Segmental Pressures Right brachial= 158mmHg. Right posterior tibial artery = 193mmHg. Right dorsalis pedis artery = 215mmHg. Right digit = 152 mmHg. The right posterior tibial artery waveforms are triphasic. The right dorsalis pedis waveforms are triphasic. Indices The right ankle brachial index by the posterior tibial artery is 1.22. The right ankle brachial index by the dorsalis pedis is 1.36. The right digital-brachial index is 0.96. The right ankle brachial index by the dorsalis pedis post exercise is 1.39. The left ankle brachial index by the posterior tibial artery is 1.27. The left ankle brachial index by the dorsalis pedis is 1.32. The left digital-brachial index is 0.81. The left dorsalis pedis index post exercise is 1.28. VL/Lower Ext Art Exam w/ Exercise Interpretation Summary The right PT and DP ankle-brachial indices at rest are 1.22 and 1.36 respective ly with normal triphasic Doppler waveforms. The right digital brachial index is 0.96 which is normal With exercise the right LISA goes from resting 1.36 to immediate after exercise at 1.39 which is normal The left lower extremity resting PT and DP ankle-brachial indices at rest are n ormal at 1.27 and 1.32 respectively with normal triphasic Doppler waveforms. The left digital brachial index is normal at 0.81 The left LISA goes from resting of 1.3-2 immediately after exercise at 1.28 whic h is essentially normal. Ordering Physician: Won Noel Referring Physician: Fidel Maurer Performed By: Armen Centeno RVT
== END | disposition home or self-care (01) ==
LOC: CVS 08:39
PROVIDERS: PCP Family Medicine; Referring Provider Surgery; Visit Provider Surgery
DX: I73.9 Peripheral vascular disease, unspecified (principal)
CPT/HCPCS: 93924

== ENCOUNTER → 2023-01-15 | Outpatient (CLI) | payer MEDICARE, OTHER, SELFPAY ==
[2023-01-15 08:03] LABS: Absolute Lymphocyte Count 1.63 X10^3/uL (0.83-4.51); Absolute Neutrophil Count 4.4 X10^3/uL (2.0-7.7); Basophil# 0.06 X10^3/uL; Basophil% 0.9 % (0-1); Eosinophil# 0.16 X10^3/uL; Eosinophils% 2.3 % (0-5); Hematocrit 46.4 % (40-54); Hemoglobin 14.8 g/dL (13.0-16.5); Lymphocyte # 1.63 X10^3/ul (0.83-4.51); Lymphocyte % 23.8 % (19-41); Mean Corp Hgb Conc 31.9 g/dL (32-36); Mean Corpuscular Volume 97.1 fL (80-94); Monocyte# 0.62 X10^3/uL; NRBC Flagged by Analyzer 0 % (0-5); Neutrophil # 4.36 X10^3/uL (2.7-7.7); Neutrophil % 63.6 % (47-70); Platelet Count 225 K/mm3 (150-450); RBC Distribution Width CV 12.6 % (11.6-14.6); Red Blood Count 4.78 M/mm3 (4.6-6.2); White Blood Count 6.9 K/mm3 (4.4-11.0)
[2023-01-15 08:33] LABS: ALB/GLOB Ratio 1.1 RATIO (0.9-2.4); AST(SGOT) 15 U/L (15-37); Alanine Aminotransfer ALT/SGPT 25 U/L (16-61); Albumin, Serum 3.5 g/dL (3.2-5.0); Alkaline Phosphatase 102 U/L (45-117); Anion Gap 6 (5-15); BUN 15 mg/dL (7-18); BUN/Creat Ratio 14.9 RATIO (10-20); Calcium,Total 9.2 mg/dL (8.5-10.1); Chloride 103 mmol/L (98-107); Creatinine, Serum 1.01 mg/dL (0.70-1.30); EST Glomerular Filtration Rate 75 mL/min (>60); Est Glom Filt Rate - Afr Amer 91 mL/min (>60); Globulin 3.2 g/dL (2.2-4.2); Glucose 104 mg/dL (74-106); Potassium 3.9 mmol/L (3.5-5.1); Protein, Total 6.7 g/dL (6.4-8.2); Sodium Level 142 mmol/L (136-145); T4 Free Direct 1.23 ng/dL (0.76-1.46)
[2023-01-16 10:32] LABS: Cholesterol 172 mg/dL (200); High Density Lipoprotein 57 mg/dL; Triglycerides 125 mg/dL; Very Low Density Lipoprotein 25 mg/dL (5-40)
== END | disposition home or self-care (01) ==
LOC: LAB 06:04
PROVIDERS: PCP Family Medicine; Referring Provider Family Medicine; Visit Provider Family Medicine
DX: I10 Essential (primary) hypertension (principal); E03.9 Hypothyroidism, unspecified; I25.10 Atherosclerotic heart disease of native coronary artery without angina pectoris; E78.5 Hyperlipidemia, unspecified
CPT/HCPCS: 36415; 80053; 80061; 84439; 84443; 85025

== ENCOUNTER 2023-04-29 13:27 | Emergency (ER) | payer MEDICARE, OTHER, SELFPAY ==
[2023-04-29 13:28] VITALS: BP 206/80; PULSE 57; RESP 18; TEMP 35.8; O2SAT 99; BMI 37.0
--- NOTE | 2023-04-29 13:50 | ED.VIS.DYS ---
HPI History of Present Illness Chief Complaint: Shortness of Breath Detail of Chief Complaint: Shortness of breath Informant: patient and spouse/S.O. Narrative Narrative: Patient presents to the emergency department complaint of shortness of breath that started last evening around 3 AM. Patient states that he normally sleeps with a CPAP and woke up feeling like he could not breathe he is not sure if that is CPAP was not working right. Patient states that eventually he was able to put the CPAP back on it seems to have functioned well after that. Patient denies any chest pain. Denied recent illness. He had a little bit of a runny nose for the last 3 days. He denies recent travel or surgery. Patient on rivaroxaban for history of A-fib. He had a prior ablation. He denies recent fever or illness. [facility] Medical History Abnormal nuclear stress test Acute bronchitis, unspecified Atherosclerotic heart disease of [place] coronary artery without angina pectoris Contact with and (suspected) exposure to other viral communicable diseases Essential hypertension Hypothyroidism Myocardial infarct, old Obesity (BMI 35.0-39.9 without comorbidity) Obstructive sleep apnea Other [facility] (current[facility] drug therapy Paroxysmal atrial fibrillation Presence of stent in coronary artery (~01/11/11) Pure hypercholesterolemia PVD (peripheral vascular disease) PVD (peripheral vascular disease) Shortness of breath Stenosis of right carotid artery Home Medications aspirin 81 mg chewable tablet 81 mg PO DAILY@0800 01/31/16 [History Last Taken Unknown] carvedilol 6.25 mg tablet 6.25 mg PO BID 01/31/16 [History Last Taken Unknown] levothyroxine 88 mcg tablet 88 mcg PO DAILY 01/31/16 [History Last Taken Unknown] calcium carbonate 600 mg-vitamin D3 20 mcg (800 unit) tablet 2 ea PO DAILY 07/24/19 [History Last Taken Unknown] montelukast 10 mg tablet 10 mg PO DAILY 08/01/19 [History Last Taken Unknown] acetaminophen 650 mg tablet,extended release (Tylenol Arthritis Pain) 650 mg PO Q12H 03/09/21 [History Last Taken Unknown] cetirizine 10 mg capsule 10 mg PO DAILY 03/09/21 [History Last Taken Unknown] rosuvastatin 10 mg tablet 10 mg PO DAILY 03/09/21 [History Last Taken Unknown] triamcinolone acetonide 55 mcg nasal spray aerosol 1 spray intranasal PRN PRN Nasal Congestion 03/09/21 [History Last Taken Unknown] budesonide-formoterol HFA 160 mcg-4.5 mcg/actuation aerosol inhaler (Symbicort) 2 puff inhalation BID PRN sob 06/10/21 [History Last Taken Unknown] light mineral oil 1 %-mineral oil 4.5 % eye drops (Soothe XP) 1 drp ophthalmic (eye) PRN PRN dry eyes 09/29/21 [History Last Taken Unknown] lbbrwdtp-avrynm-AJ-thonzonm 3.3 mg-3 mg-10 mg-0.5 mg/mL ear drops,susp 4 drp otic (ear) TID 09/29/21 [History Last Taken Unknown] nitroglycerin 0.4 mg sublingual tablet 0.4 mg sublingual Q5-15M PRN Chest Pain #25 tabs 03/10/22 [Rx Last Taken Unknown] lisinopril 10 mg tablet 10 mg PO BID this is a dose increase #180 tabs 05/04/22 [Rx Last Taken Unknown] rivaroxaban 20 mg tablet (Xarelto) See Rx Instructions .Route .COMPLEX #90 tabs 08/02/22 [Rx Last Taken Unknown] meclizine 25 mg tablet 25 mg PO DAILY PRN dizziness 09/12/22 [History Last Taken Unknown] Allergy/AdvReac Type Severity Reaction Status Date / Time atorvastatin calcium Allergy Unknown Verified 02/12/23 08:00 [From [employer]] Family History Father CAD (coronary artery disease) Colon cancer Hypertension Mother CAD (coronary artery disease) CVA (cerebral vascular accident) Brother CAD (coronary artery disease) Brother COPD (chronic obstructive pulmonary disease) Surgical History History of basal cell carcinoma excision History of cardiac radiofrequency ablation (~01/2015) History of cataract surgery History of neck surgery History of right-sided carotid endarterectomy (~06/2012) History of shoulder surgery S/P PTCA (percutaneous transluminal coronary angioplasty) (~01/11/11) Social History Smoking Status: Never smoker alcohol intake: never substance use type: does not use caffeine: No what type of physical activity do you participate in: none seatbelt use: always do you feel safe at home: Yes ROS ROS ED Review of Systems ROS Unobtainable: other Constitutional Constitutional ED: Reports lethargy; Denies chills, fever(s), sweats or weight loss Eyes Eyes: Denies blurry vision, change in vision or diplopia ENT ENT ED: Denies rhinorrhea or sore throat Cardiovascular Cardiovascular: Denies chest pain, orthopnea or racing heartbeat Respiratory/Chest Respiratory/Chest: Reports dyspnea; Denies cough, dyspnea on exertion, orthopnea or sputum Gastrointestinal Gastrointestinal: Denies abdominal pain, diarrhea, nausea or vomiting Genitourinary Genitourinary ED: Denies dysuria, hematuria or urinary frequency Musculoskeletal Musculoskeletal: Denies arthralgias, back pain, myalgias or neck pain Integumentary Denies abscess, Abrasions or rash Neurologic Neurologic: Denies headache(s) or weakness Psychiatric Psychiatric: Denies anxiety, depression or suicidal thoughts Endocrine Endocrinology: Denies polydipsia, polyphagia or polyuria Hematologic/Lymphatic Hematologic/Lymphatic: Denies easy bleeding, easy bruising or lymphadenopathy Allergic/Immunologic Allergic/Immunologic ED: Denies mouth swelling, tongue swelling or urticaria EXAM Physical Exam Const Vital Signs: 04/29/23 13:28 04/29/23 13:41 04/29/23 14:00 Temperature 96.5 F L Temperature Source Temporal Pulse Rate 57 L Respiratory Rate 18 Respiratory Effort Short of Breath Respiratory Depth Normal Respiratory Pattern Normal Blood Pressure 206/80 H Blood Pressure Mean 122 Pulse Ox 99 Oxygen Delivery Method Room Air Room Air Room Air 04/29/23 15:03 Temperature Temperature Source Pulse Rate 77 Respiratory Rate 18 Respiratory Effort Respiratory Depth Respiratory Pattern Blood Pressure 130/59 H Blood Pressure Mean 82 Pulse Ox 98 Oxygen Delivery Method Room Air Positive well nourished and well developed General Appearance ED: well developed and NAD HEENT Reports TM's clear and moist mucous membranes normocephalic and atraumatic; Negative for trauma or tenderness Tympanic Membrane ED: Yes TM's clear Eyes PERRL and EOMs intact bilaterally General Eye ED: Negative for pale conjunctiva or scleral icterus Neck no lymphadenopathy, supple and no JVD General: Negative for tenderness Chest Wall inspection of chest normal and palpation of chest normal Chest: Negative for tenderness Resp normal respiratory effort and clear to auscultation bilaterally Effort and Inspection: Negative for respiratory distress or pain with movement Auscultation: Negative for rhonchi, wheezes or diminished lung sounds Cardio regular rate, regular rhythm, S1 normal heart sound, S2 normal heart sound and no murmurs Peripheral Pulses: pulses 2+ throughout GI normal to inspection, nondistended, normoactive bowel sounds, soft to palpation, non-tender, non-distended and no masses Back/Spine no CVA tenderness and no thoracic nor lumbar tenderness Extremity normal to inspection General Extremety ED: Negative for edema General Extremity: Negative for edema Neuro oriented x3, CN's II-XII intact bilaterally, no sensory deficits noted and gait normal Sensorium / Orientation: awake, alert, oriented to person, oriented to place and oriented to time Motor Exam: strength 5/5 throughout and strength abnormal Psych mental status grossly normal Skin no rashes or lesions noted and no wounds MDM MDM MDM Narrative Medical decision making narrative: Patient presents with an episode of dyspnea in the middle the night. Now mostly resolved. He thinks maybe his BiPAP machine was not working correctly. He has a cardiac stent in was wondering if there could be something cardiac going on. He has not been having chest pain or exertional dyspnea. He is anticoagulated for history of A-fib. An IV line established. EKG obtained arrival showed a sinus bradycardia with ventricular rate of 58 bpm with old anterior septal infarct. CBC with differential showing a 6.7 with hemoglobin 15 and platelet count of 202. Chemistries unremarkable. BNP was normal and troponin was normal at 10. Chest x-ray was unremarkable. Clinically patient looks well. Vital signs stable. Etiology of his dyspnea unclear but apparently per he was crying and had this feeling of impending doom. In the differential would be anxiety attack versus malfunction of his CPAP machine which subsequently apparently was able to sleep with the rest of the evening and it functioned properly. Patient advised to follow-up with his primary care physician within next 3 to 5 days. Advised to return if chest pain, shortness of breath, or condition should worsen anyway. Lab Data Attestation: I reviewed the patient's lab results. Labs: Laboratory Results - last 24 hr 04/29/23 13:54 WBC 6.7 RBC 4.92 Hgb 15.2 Hct 45.7 MCV 92.9 MCH 30.9 MCHC 33.3 RDW Std Deviation 43.3 RDW Coeff of Rogelio 12.6 Plt Count 202 MPV 10.1 Immature Gran % (Auto) 0.300 Neut % (Auto) 60.9 Lymph % (Auto) 27.2 [place] % (Auto) 8.5 Eos % (Auto) 2.4 Baso % (Auto) 0.7 Absolute Neuts (auto) 4.1 Absolute Lymphs (auto) 1.83 Nucleated RBC % 0 Sodium 140 Potassium 3.9 Chloride 106 Carbon Dioxide 29.0 Anion Gap 5 BUN 11 Creatinine 1.00 Estim Creat Clear Calc 66.63 Est GFR (MDRD) Af Amer 92 Est GFR (MDRD) Non-Af 76 BUN/Creatinine Ratio 11.0 Glucose 107 H Calcium 9.5 Troponin I High Sens 10 B-Natriuretic Peptide 59.8 Radiography Diagnostic Testing: Clinical Impression(s) from Imaging Studies Chest X-Ray 04/29/23 15:08 IMPRESSION: No radiographic evidence of acute cardiopulmonary disease. Electronically Signed: Rene Meier MD at 15:25 EST Reading Location ID and State: [facility] / [place] , Service support , 1 view chest x-ray obtained interpreted by myself as no evidence of infiltrate or pneumothorax or acute disease process. Radiology in agreement. EKG Initial EKG: Attestation: I personally reviewed and interpreted this EKG as follows: Comments: Sinus bradycardia with rate of 58 bpm with old anterior septal infarct Prior EKG tracings: available for review Prior: Unchanged Discharge Plan Triage Chief Complaint: Shortness of Breath ED Provider: Talon Carpio Dx/Rx/DC Orders Clinical Impression: Dyspnea Instructions: ED Dyspnea Prescriptions: No Action montelukast 10 mg tablet 10 mg PO DAILY acetaminophen [Tylenol Arthritis Pain] 650 mg tablet extended release 650 mg PO Q12H budesonide-formoterol [Symbicort] 160-4.5 mcg/actuation HFA aerosol inhaler 2 puff INHALATION BID PRN (Reason: sob) nitroglycerin 0.4 mg tablet, sublingual 0.4 mg SUBLINGUAL Q5-15M PRN (Reason: Chest Pain) Qty: 25 1RF rmwfohee-lapoor-LF-thonzonium 3.3-3-10-0.5 mg/mL drops,suspension 4 drp otic (ear) TID Soothe XP 1-4.5 % drops 1 drp ophthalmic (eye) PRN PRN (Reason: dry eyes) meclizine 25 mg tablet 25 mg PO DAILY PRN (Reason: dizziness) carvedilol 6.25 MG tablet 6.25 mg PO BID levothyroxine 88 MCG tablet 88 mcg PO DAILY aspirin 81 MG tablet,chewable 81 mg PO DAILY@0800 cetirizine 10 mg capsule 10 mg PO DAILY rosuvastatin 10 mg tablet 10 mg PO DAILY calcium carbonate-vitamin D3 1 EACH tablet 2 ea PO DAILY triamcinolone acetonide 55 mcg aerosol,spray 1 spray intranasal PRN PRN (Reason: Nasal Congestion) lisinopril 10 mg tablet 10 mg PO BID Qty: 180 3RF Xarelto 20 mg tablet See Rx Instructions .ROUTE .COMPLEX Qty: 90 3RF Dose Instruction: TAKE 1 TABLET BY MOUTH EVERY DAY Rx Instructions: TAKE 1 TABLET BY MOUTH EVERY DAY Primary Care Provider: Fidel Maurer Referrals: Fidel Maurer DO [Primary Care Provider] - 3-5 Days Disposition Disposition: Home, Self Care
[2023-04-29 14:02] LABS: Absolute Lymphocyte Count 1.83 X10^3/uL (0.83-4.51); Absolute Neutrophil Count 4.1 X10^3/uL (2.0-7.7); Basophil# 0.05 X10^3/uL; Basophil% 0.7 % (0-1); Eosinophil# 0.16 X10^3/uL; Eosinophils% 2.4 % (0-5); Hematocrit 45.7 % (40-54); Hemoglobin 15.2 g/dL (13.0-16.5); Lymphocyte # 1.83 X10^3/ul (0.83-4.51); Lymphocyte % 27.2 % (19-41); Mean Corp Hgb Conc 33.3 g/dL (32-36); Mean Corpuscular Hgb 30.9 pg (27.0-32.0); Mean Corpuscular Volume 92.9 fL (80-94); Mean Platelet Vol. 10.1 fl (6.2-12.0); Monocyte# 0.57 X10^3/uL; Monocyte% 8.5 % (0-10); NRBC Flagged by Analyzer 0 % (0-5); Neutrophil # 4.09 X10^3/uL (2.7-7.7); Neutrophil % 60.9 % (47-70); Platelet Count 202 K/mm3 (150-450); RBC Distribution Width CV 12.6 % (11.6-14.6); RBC Distribution Width SD 43.3 fl (35.1-43.9); Red Blood Count 4.92 M/mm3 (4.6-6.2); White Blood Count 6.7 K/mm3 (4.4-11.0)
[2023-04-29] MEDS: 0.9% Normal Saline (1000mL) 1,000 ML 150 ML IV (14:03)
--- OUTSIDE RECORDS SUMMARY | 2023-04-29 14:09 | XMS RPT_ITS | CCD ---
Author Name Unknown Address [email or web address] [place] [address] Organization [facility] Care Team Providers Care Php Architect Name Role Phone Chapin Chavarria Y Unavailable Unavailable Chapin Chavarria Y Unavailable Unavailable [place] CARTER, Kaycee Whitmore Primary Care Provider Fidel Maurer Primary Care Provider [phone] Allergies Allergy Classification Reported Allergen(s) Allergy Type Date of Onset Reaction(s) Facility (2 sources) atorvastatin drug allergy 08-10-[address] [facility] Work Phone: Medications Completed/Discontinued Medications Medication Drug Class(es) Dates Sig (Normalized) Sig (Original) amiodarone hydrochloride 200 mg oral tablet (12 sources) Antiarrhythmic Start: 08-10-2011 End: 12-08-2011 take 0.5 tablet by mouth once daily AMIODARONE HCL 200 MG TABS 1/2 tablet by mouth daily AMIODARONE HCL [id number] Varghese Celis MD Problems Active Problems Problem Classification Problem Date Documented Date Episodic/Chronic Cardiac dysrhythmias (2 sources) Paroxysmal atrial fibrillation; Translations: [Paroxysmal atrial fibrillation] Onset: 03-09-2011 03-09-2011 Chronic Coronary atherosclerosis and other heart disease (6 sources) Atherosclerotic heart disease of [place] coronary artery without angina pectoris; Translations: [History of myocardial infarction] On[place]: 03-09-2011 12-16-2015 Chronic Disorders of lipid metabolism (2 sources) Hyperlipidemia; Translations: [Hyperlipidemia, unspecified] Onset: 03-09-2011 03-09-2011 Chronic Essential hypertension (2 sources) Hypertensive disorder; Translations: [Essential (primary) hypertension] Onset: 03-09-2011 03-09-2011 Chronic Occlusion or stenosis of precerebral arteries (5 sources) Carotid artery stenosis; Translations: [Occlusion and stenosis of unspecified carotid artery] Onset: 09-21-2011 09-21-2011 Chronic Osteoarthritis (2 sources) Degenerative joint disease involving multiple joints; Translations: [Polyosteoarthritis, unspecified] Onset: 06-15-2015 06-15-2015 Chronic Other nutritional; endocrine; and metabolic disorders (7 sources) Body mass index (BMI) 37.0-37.9, adult; Translations: [Body mass index (BMI) 36.0-36.9, adult] Onset: 06-06-2013 06-07-2015 Chronic Other nutritional; endocrine; and metabolic disorders (2 sources) Body mass index (BMI) 36.0-36.9, adult; Translations: [Body mass index (BMI) 36.0-36.9, adult] Onset: 06-06-2013 03-08-2015 Chronic Other nutritional; endocrine; and metabolic disorders (1 source) Body mass index (BMI) 35.0-35.9, adult; Translations: [Body mass index (BMI) 35.0-35.9, adult] Onset: 06-06-2013 06-06-2013 Chronic Residual codes; unclassified (2 sources) Obstructive sleep apnea syndrome; Translations: [Obstructive sleep apnea (adult) (pediatric)] Onset: 12-02-2013 12-02-2013 Chronic Thyroid disorders (2 sources) Iatrogenic hypothyroidism; Translations: [Hypothyroidism due to medicaments and other exogenous substances] Onset: 05-16-2012 05-16-2012 Chronic Unclassified (3 sources) Long-term drug therapy; Translations: [Long-term (current) use of other medications] Onset: 04-06-2011 Resolved: 12-30-2014 04-06-2011 Past or Other Problems Problem Classification Problem Date Documented Da te Episodic/Chronic Conditions associated with dizziness or vertigo (2 sources) Dizziness; Translations: [Dizziness and giddiness] Onset: 06-21-2016 06-21-2016 Episodic Coronary atherosclerosis and other heart disease (3 sources) Coronary angioplasty status; Translations: [History of myocardial infarction] Onset: 03-09-2011 03-09-2011 Episodic Other aftercare (3 sources) Long-term (current) use of other medications; Translations: [Other supervisor intermediates (current) drug therapy] Onset: 04-06-2011 Resolved: 12-30-2014 12-30-2014 Episodic Other circulatory disease (1 source) History of myocardial infarction; Translations: [Old myocardial infarction] Onset: 03-09-2011 03-09-2011 Episodic Other lower respiratory disease (2 sources) Dyspnea; Translations: [Shortness of breath] Onset: 11-18-2014 11-18-2014 Episodic Results Test Name Value Interpretation Reference Range Facil ity Vital Signs Date Time Vital Sign Value Performing Clinician Raymondi machelley 12-18-2016 09:110400 BMI (Body Mass Index) 36.49 kg/m2 Harumi DeFinis [facility] Work Phone: 12-18-2016 09:11-0400 BP Diastolic 68 mm[Hg] Harumi DeFinis [facility] Work Phone: 12-18-2016 09:11-0400 BP Systolic 134 mm[Hg] Harumi DeFinis [facility] Work Phone: 12-18-2016 09:11-0400 Height 172.72 cm Harumi DeFinis [facility] Work Phone: 12-18-2016 09:11-0400 Pulse (Heart Rate) 60 /min Harumi DeFinis [facility] Work Phone: 12-18-2016 09:11-0400 Respiratory Rate 16 /min Harumi DeFinis [facility] Work Phone: 12-18-2016 09:11-0400 Weight 108.86 kg Harumi DeFinis [facility] Work Phone: 06-26-2016 09:26-0400 Heart rate 58 /min Harumi DeFinis [facility] Work Phone: 06-26-2016 09:13-0400 Height 172.[address] [facility] Work Phone: 12-27-2015 14:22-0400 BSA (Body Surface Area) 2.24 m2 Harumi DeFinis [facility] Work Phone: 06-15-2015 08:01-0500 Body Temperature 97.6 [degF] Harumi DeFinis [facility] Work Phone: 05-30-2012 10:22-0500 Heart rate 378 ms Chapin Chavarria [facility] Work Phone: Encounters Encounter Date Encounter Type Care Provider Facility Start: 04-21-2016 End: 04-21-2016 Telephone encounter Won Noel MD Work Phone: General Surgery Procedures Date Procedure Procedure Detail Performing Clinician Start: 12-18-2016 End: 12-18-2016 Dietary management education, guidance, and counseling Chapin Chavarria Start: 12-18-2016 End: 12-18-2016 Follow Up Appt 6 months Varghese Celis MD Start: 12-18-2016 End: 12-18-2016 RANDALL Celis MD Start: 06-26-2016 End: 06-26-2016 Electrocardiogram, complete Anita Hernandes PA-C Work Phone: Start: 06-26-2016 End: 06-26-2016 Follow Up Appt 6 months Anita enriquez PA-C Work Phone: Start: 06-26-2016 End: 06-26-2016 PFM Anita Boone PA-C Work Phone: Start: 12-27-2015 End: 12-27-2015 Follow Up Appt 6 months Varghese Celis MD Start: 12-27-2015 End: 06-21-2016 Follow Up Appt Other Varghese Celis MD Start: 12-27-2015 End: 12-27-2015 RANDALL Celis MD Start: 06-07-2015 End: 06-07-2015 Follow Up Appt 6 months Anita enriquez PA-C Work Phone: Start: 06-07-2015 End: 06-07-2015 PFNirav Boone PA-C Work Phone: Start: 03-08-2015 End: 03-08-2015 Electrocardiogram, complete Varghese fang MD Start: 03-08-2015 End: 03-08-2015 Follow Up Appt 3 months Varghese Celis MD Start: 03-08-2015 End: 03-08-2015 MMM Varghese Celis MD Start: 02-11-2015 End: 06-21-2016 *Hepatic Function Panel Varghese Celis MD Start: 02-11-2015 End: 06-21-2016 Lipid panel [AGGREGATE] Varghese Celis MD Start: 12-30-2014 End: 12-31-2014 Documentation of current medications Anita Boone PA-C Work Phone: Start: 12-30-2014 End: 12-30-2014 Follow Up Appt 2 months Anita enriquez PA-C Work Phone: Start: 12-30-2014 End: 12-30-2014 PFM Anita Boone PA-C Work Phone: Start: 12-03-2014 End: 12-03-2014 Cardiac Referral Varghese Celis MD Start: 12-03-2014 End: 12-03-2014 Electrocardiogram, complete Varghese fang MD Start: 11-18-2014 End: 11-20-2014 *BMP Varghese Celis MD Start: 11-18-2014 End: 12-03-2014 Cardioversion Varghese Celis MD Start: 11-18-2014 End: 12-03-2014 Chest x-ray Varghese Celis MD Start: 11-18-2014 End: 11-19-2014 Documentation of current medications Varghese Celis MD Start: 11-18-2014 End: 11-18-2014 Electrocardiogram, complete Varghese fang MD Start: 11-18-2014 End: 11-18-2014 Follow Up Appt 6 weeks Varghese Celis MD Start: 11-18-2014 End: 11-18-2014 MMM Varghese Celis MD Start: 11-18-2014 End: 11-25-2014 Pulmonary Function Test - complete Varghese Celis MD Start: 08-07-2014 End: 08-07-2014 *Hepatic Function Panel Varghese Celis MD Start: 08-07-2014 End: 08-07-2014 Lipid panel [AGGREGATE] Varghese Celis MD Start: 04-23-2014 End: 04-24-2014 Documentation of current medications Varghese Celis MD Start: 04-23-2014 End: 12-03-2014 Echocardiography Varghese Celis MD Start: 04-23-2014 End: 12-03-2014 Follow Up Appt Other Varghese Celis MD Start: 03-26-2014 End: 12-03-2014 Remote 30 day ecg rev/report Anita Boone PA-C Work Phone: Start: 12-02-2013 End: 12-23-2014 Follow Up Appt 6 months Anita enriquez PA-C Work Phone: Start: 12-02-2013 End: 12-23-2014 Follow Up Appt Other Anita tamayo PA-C Work Phone: Start: 12-02-2013 End: 12-23-2014 PFM Anita Boone PA-C Work Phone: Start: 11-24-2013 End: 11-27-2013 *Hepatic Function Panel Varghese Celis MD Start: 11-24-2013 End: 11-27-2013 Lipid panel [AGGREGATE] Varghese Celis MD Start: 07-08-2013 End: 02-16-2014 *Hepatic Function Panel Varghese Celis MD Start: 07-08-2013 End: 08-20-2013 Lipid panel [AGGREGATE] Varghese Celis MD Start: 06-06-2013 End: 06-06-2013 Follow Up Appt 6 months Varghese Celis MD Start: 06-06-2013 End: 06-06-2013 MMM Varghese Celis MD Start: 02-07-2013 End: 02-11-2013 *Hepatic Function Panel Varghese Celis MD Start: 02-07-2013 End: 02-11-2013 Lipid panel [AGGREGATE] Varghese Celis MD Start: 10-24-2012 End: 10-24-2012 Follow Up Appt 6 months Anita enriquez PA-C Work Phone: Start: 10-24-2012 End: 10-24-2012 PF Anita Boone PA-C Work Phone: Start: 09-02-2012 End: 10-04-2012 Thyroid stimulating hormone (TSH) Varghese Celis MD Start: 09-02-2012 End: 10-04-2012 Thyroxine (T4) Varghese Celis MD Start: 08-07-2012 End: 08-26-2012 *Hepatic Function Panel Varghese Celis MD Start: 08-07-2012 End: 08-26-2012 Lipid 1996 panel - Serum or Plasma Varghese Celis MD Start: 08-07-2012 End: 08-26-2012 Thyroid stimulating hormone (TSH) Varghese Celis MD Start: 07-25-2012 End: 07-30-2012 Lipid panel [AGGREGATE] Varghese Celis MD Start: 07-25-2012 End: 07-30-2012 Thyrotropin [Units/volume] in Serum or Plasma Varghese Celis MD Start: 07-25-2012 End: 07-30-2012 Thyroxine (T4) Varghese Celis MD Start: 06-27-2012 End: 07-30-2012 Thyroid stimulating hormone (TSH) Varghese Celis MD Start: 06-27-2012 End: 07-30-2012 Thyroxine (T4) Varghese Celis MD Start: 05-30-2012 End: 07-30-2012 Thyroxine (T4) Varghese Celis MD Start: 04-04-2012 End: 04-04-2012 Electrocardiogram, complete Varghese fang MD Start: 04-04-2012 End: 04-04-2012 Follow Up Appt 6 months Varghese Celis MD Start: 04-04-2012 End: 05-30-2012 Thyroid stimulating hormone (TSH) Varghese Celis MD Start: 04-04-2012 End: 05-30-2012 Thyroxine (T4) Varghese Celis MD Start: 03-25-2012 End: 04-04-2012 Thyroid stimulating hormone (TSH) Varghese Celis MD Start: 03-25-2012 End: 04-04-2012 Thyroxine (T4) Varghese Celis MD Start: 03-09-2012 End: 04-04-2012 *Hepatic Function Panel Varghese Celis MD Start: 03-09-2012 End: 04-04-2012 Lipid 1996 panel - Serum or Plasma Varghese Celis MD Start: 03-09-2012 End: 04-04-2012 Thyroid stimulating hormone (TSH) Varghese Celis MD Start: 12-08-2011 End: 04-04-2012 24 hour holter monitor Varghese Celis MD Start: 12-08-2011 End: 12-08-2011 Electrocardiogram, complete Varghese fang MD Start: 12-08-2011 End: 12-08-2011 eRx Transmitted during this visit (Medicare only) Varghese Celis MD Start: 12-08-2011 End: 04-04-2012 Follow Up Appt 4 months Varghese Celis MD Start: 09-21-2011 End: 04-04-2012 Carotid duplex Varghese Celis MD Start: 09-15-2011 End: 09-19-2011 *Hepatic Function Panel Varghese Celis MD Start: 09-15-2011 End: 09-19-2011 Lipid 1996 panel - Serum or Plasma Varghese Celis MD Start: 09-15-2011 End: 09-19-2011 Thyroid stimulating hormone (TSH) Varghese Celis MD Start: 09-15-2011 End: 09-19-2011 Thyroxine (T4) Varghese Celis MD Start: 08-10-2011 End: 09-18-2011 *Hepatic Function Panel Varghese Celis MD Start: 08-10-2011 End: 09-18-2011 Electrocardiogram, complete Varghese fang MD Start: 08-10-2011 End: 08-10-2011 eRx Transmitted during this visit (Medicare only) Varghese Celis MD Start: 08-10-2011 End: 04-04-2012 Follow Up Appt 4 months Varghese Celis MD Start: 08-10-2011 End: 09-18-2011 Lipid panel [AGGREGATE] Varghese Celis MD Start: 08-10-2011 End: 09-18-2011 Thyrotropin [Units/volume] in Serum or Plasma Varghese Celis MD Start: 08-10-2011 End: 09-18-2011 Thyroxine (T4) Varghese Celis MD Start: 06-14-2011 End: 06-14-2011 INR in Platelet poor plasma by Coagulation assay Varghese Celis MD Start: 06-14-2011 End: 06-14-2011 Thyroxine (T4) Varghese Celis MD Start: 05-10-2011 End: 05-10-2011 Follow Up Appt 3 months Varghese Celis MD Start: 05-10-2011 End: 05-10-2011 Thyroid stimulating hormone (TSH) Varghese Celis MD Start: 03-23-2011 End: 06-08-2011 Coagulation factor induced.INR assay in platelet poor plasma Varghese Celis MD Start: 03-09-2011 End: 03-23-2011 Coagulation factor induced.INR assay in platelet poor plasma Varghese Celis MD Plan of Treatment Date Care Activity Detail Author Start: 12-08-2020 Influenza vaccination INFLUENZA (Season Ended) [facility] Start: 06-18-2017 End: 06-18-[address] [facility] Work Phone: Start: 12-18-2016 End: 12-18-2016 Appointment Appointment [facility] Work Phone: Start: 12-18-2016 End: 12-18-2016 Follow Up Appt 6 months Follow Up Appt 6 months [facility] Work Phone: Start: 12-18-2016 End: 12-18-2016 MMM MMM [facility] Work Phone: Start: 06-26-2016 End: 06-26-2016 Electrocardiogram, complete EKG (In office) [facility] Work Phone: Start: 06-26-2016 End: 06-26-2016 Follow Up Appt 6 months Follow Up Appt [address] [facility] Work Phone: Start: 06-26-2016 End: 06-26-[address] [facility] Work Phone: Start: 12-27-2015 End: 12-27-2015 Follow Up Appt 6 months Follow Up Appt 6 months [facility] Work Phone: Start: 12-27-2015 End: 06-21-2016 Follow Up Appt Other Follow Up Appt Other [facility] Work Phone: Start: 12-27-2015 End: 12-27-2015 MMM MMM [facility] Work Phone: Start: 06-07-2015 End: 06-07-2015 Follow Up Appt 6 months Follow Up Appt 6 months [facility] Work Phone: Start: 06-07-2015 End: 06-07-[address] [facility] Work Phone: Start: 04-22-2015 DIABETES SCREEN DIABETES SCREEN [facility] Start: 03-08-2015 End: 03-08-2015 Electrocardiogram, complete EKG (In office) [facility] Work Phone: Start: 03-08-2015 End: 03-08-2015 Follow Up Appt 3 months Follow Up Appt [address] [facility] Work Phone: Start: 03-08-2015 End: 03-08-2015 MMM MMM [facility] Work Phone: Start: 02-11-2015 End: 06-21-2016 *Hepatic Function Panel *Hepatic Function Panel [facility] Work Phone: Start: 02-11-2015 End: 06-21-2016 Lipid panel [AGGREGATE] *Lipid Profile CC PCP [facility] Work Phone: Start: 12-30-2014 End: 12-30-2014 Follow Up Appt 2 months Follow Up Appt [address] [facility] Work Phone: Start: 12-30-2014 End: 12-30-2014 PFM PFM [facility] Work Phone: Start: 12-03-2014 End: 12-03-2014 Cardiac Referral Cardiac Referral Lalo Lu [facility] [place], [address] [place] [address], [id number] [facility] Work Phone: Start: 12-03-2014 End: 12-03-2014 Electrocardiogram, complete EKG (In office) [facility] Work Phone: Start: 11-18-2014 End: 11-20-2014 *BMP *BMP [facility] Work Phone: Start: 11-18-2014 End: 11-18-[address] [facility] Work Phone: Start: 11-18-2014 End: 12-03-2014 Chest x-ray X-Ray, Chest, PA & Lateral [facility] Work Phone: Start: 11-18-2014 End: 11-18-2014 Electrocardiogram, complete EKG (In office) [facility] Work Phone: Start: 11-18-2014 End: 11-18-2014 Follow Up Appt 6 weeks Follow Up Appt 6 weeks [facility] Work Phone: Start: 11-18-2014 End: 11-18-2014 MMM MMM [facility] Work Phone: Start: 11-18-2014 End: 11-18-2014 Pulmonary Function Test - complete Pulmonary Function Test - complete [facility] Work Phone: Start: 08-07-2014 End: 08-07-2014 *Hepatic Function Panel *Hepatic Function Panel [facility] Work Phone: Start: 08-07-2014 End: 08-07-2014 Lipid panel [AGGREGATE] *Lipid Profile CC PCP [facility] Work Phone: Start: 04-23-2014 End: 04-23-2014 Echocardiography Echocardiogram (complete) [facility] Work Phone: Start: 04-23-2014 End: 12-03-2014 Follow Up Appt Other Follow Up Appt Other [facility] Work Phone: Start: 03-26-2014 End: 03-26-2014 Remote 30 day ecg rev/report 30 Day Holter Monitor [facility] Work Phone: Start: 12-08-2013 End: 11-24-2013 *Hepatic Function Panel *Hepatic Function Panel [facility] Work Phone: Start: 12-08-2013 End: 11-24-2013 Lipid panel [AGGREGATE] *Lipid Profile CC PCP [facility] Work Phone: Start: 12-02-2013 End: 12-23-2014 Follow Up Appt 6 months Follow Up Appt 6 months [facility] Work Phone: Start: 12-02-2013 End: 12-23-2014 Follow Up Appt Other Follow Up Appt Other [facility] Work Phone: Start: 12-02-2013 End: 12-23-2014 PFM PFM [facility] Work Phone: Start: 07-08-2013 End: 08-20-2013 *Hepatic Function Panel *Hepatic Function Panel [facility] Work Phone: Start: 07-08-2013 End: 08-20-2013 Lipid panel [AGGREGATE] *Lipid Profile CC PCP [facility] Work Phone: Start: 06-06-2013 End: 06-06-2013 Follow Up Appt 6 months Follow Up Appt [address] [facility] Work Phone: Start: 06-06-2013 End: 06-06-[address] [facility] Work Phone: Start: 02-07-2013 End: 02-11-2013 *Hepatic Function Panel *Hepatic Function Panel [facility] Work Phone: Start: 02-07-2013 End: 02-11-2013 Lipid panel [AGGREGATE] *Lipid Profile CC PCP [facility] Work Phone: Start: 10-24-2012 End: 10-24-2012 Follow Up Appt 6 months Follow Up Appt [address] [facility] Work Phone: Start: 10-24-2012 End: 10-24-[address] [facility] Work Phone: Start: 09-02-2012 End: 10-04-2012 Thyroid stimulating hormone (TSH) *TSH [facility] Work Phone: Start: 09-02-2012 End: 10-04-2012 Thyroxine (T4) *T4 (Total) [facility] Work Phone: Start: 08-07-2012 End: 08-26-2012 *Hepatic Function Panel *Hepatic Function Panel [facility] Work Phone: Start: 08-07-2012 End: 08-26-2012 Lipid panel [AGGREGATE] *Lipid Profile [facility] Work Phone: Start: 07-25-2012 End: 07-30-2012 Thyroid stimulating hormone (TSH) *TSH [facility] Work Phone: Start: 07-25-2012 End: 07-30-2012 Thyroxine (T4) *T4 (Total) [facility] Work Phone: Start: 06-27-2012 End: 07-30-2012 Thyroid stimulating hormone (TSH) *TSH [facility] Work Phone: Start: 06-27-2012 End: 07-30-2012 Thyroxine (T4) *T4 (Total) [facility] Work Phone: Start: 05-30-2012 End: 07-30-2012 Electrocardiogram, complete EKG (In office) [facility] Work Phone: Start: 04-04-2012 End: 04-04-2012 Electrocardiogram, complete EKG (In office) [facility] Work Phone: Start: 04-04-2012 End: 04-04-2012 Follow Up Appt 6 months Follow Up Appt 6 months [facility] Work Phone: Start: 04-04-2012 End: 05-30-2012 Thyroid stimulating hormone (TSH) *TSH [facility] Work Phone: Start: 04-04-2012 End: 05-30-2012 Thyroxine (T4) *T4 (Total) [facility] Work Phone: Start: 03-25-2012 End: 04-04-2012 Thyroid stimulating hormone (TSH) *TSH [facility] Work Phone: Start: 03-25-2012 End: 04-04-2012 Thyroxine (T4) *T4 (Total) [facility] Work Phone: Start: 03-09-2012 End: 04-04-2012 *Hepatic Function Panel *Hepatic Function Panel [facility] Work Phone: Start: 03-09-2012 End: 04-04-2012 Lipid panel [AGGREGATE] *Lipid Profile [facility] Work Phone: Start: 12-08-2011 End: 12-08-2011 24 hour holter monitor 24 hour holter monitor [facility] Work Phone: Start: 12-08-2011 End: 12-08-2011 Electrocardiogram, complete EKG (In office) [facility] Work Phone: Start: 12-08-2011 End: 04-04-2012 Follow Up Appt 4 months Follow Up Appt 4 months [facility] Work Phone: Start: 09-21-2011 End: 09-22-2011 Carotid duplex Carotid duplex [facility] Work Phone: Start: 09-15-2011 End: 09-19-2011 *Hepatic Function Panel *Hepatic Function Panel [facility] Work Phone: Start: 09-15-2011 End: 09-19-2011 Lipid panel [AGGREGATE] *Lipid Profile [facility] Work Phone: Start: 09-15-2011 End: 09-19-2011 Thyroid stimulating hormone (TSH) *TSH [facility] Work Phone: Start: 09-15-2011 End: 09-19-2011 Thyroxine (T4) *T4 (Total) [facility] Work Phone: Start: 08-10-2011 End: 09-18-2011 *Hepatic Function Panel *Hepatic Function Panel [facility] Work Phone: Start: 08-10-2011 End: 09-18-2011 Electrocardiogram, complete EKG (In office) [facility] Work Phone: Start: 08-10-2011 End: 04-04-2012 Follow Up Appt 4 months Follow Up Appt 4 months [facility] Work Phone: Start: 08-10-2011 End: 09-18-2011 Lipid panel [AGGREGATE] *Lipid Profile [facility] Work Phone: Start: 08-10-2011 End: 09-18-2011 Thyroid stimulating hormone (TSH) *TSH [facility] Work Phone: Start: 08-10-2011 End: 09-18-2011 Thyroxine (T4) *T4 (Total) [facility] Work Phone: Start: 06-14-2011 End: 06-14-2011 Coagulation factor induced.INR assay in platelet poor plasma *PT/INR - Standing Order [facility] Work Phone: Start: 05-10-2011 End: 05-10-2011 Electrocardiogram, complete EKG (In office) [facility] Work Phone: Start: 05-10-2011 End: 05-10-2011 Follow Up Appt 3 months Follow Up Appt 3 months [facility] Phone: Start: 03-23-2011 End: 06-08-2011 Coagulation factor induced.INR assay in platelet poor plasma *PT/INR [facility] Work Phone: Start: 03-09-2011 End: 03-23-2011 Coagulation factor induced.INR assay in platelet poor plasma *PT/INR [facility] Work Phone: Start: 07-06-2007 ADVANCE DIRECTIVE DISCUSSION ADVANCE DIRECTIVE DISCUSSION [facility] Start: 07-06-2007 PNEUMOVAX AGE 65 AND OVER WITH 5YR LOOKBACK (#1) PNEUMOVAX AGE 65 AND OVER WITH 5YR LOOKBACK (#1) [facility] Start: 1992 Screening for malignant neoplasm of colon [facility] Start: 1992 SHINGRIX VACCINE (1 of 2) SHINGRIX VACCINE (1 of 2) [facility] Start: 1961 Urine microalbumin profile DTAP,TDAP,TD (1 - Tdap) [facility] Start: 1960 HEPATITIS C SCREENING HEPATITIS C SCREENING [facility] Start: 1954 Adult depression screening assessment DEPRESSION SCREENING [facility] Patient Education HYPERLIPIDEMIA , HYPERTENSION,%20AMBULATO RY%20CARE [facility] Work Phone: Payers Date Payer Category Payer Medicare MEDICARE MEDICAR E A AND B [id number] 2005-Present [place] Medicare [id number] 2005 Private Health Insurance [employer] M[employer]SA PPO [id number] 2005-Present PPO [id number] Social History Date Type Detail Facility Start: 07-02-2012 Tobacco smoking stat us OKIS Never smoker [facility] Start: 07-02-2012 Tobacco use and exposure Never used [facility] Work Phone: Start: 07-02-2012 Alcohol intake 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 Jenna Cobian RN ----- Message from Won Noel sent at 04/18/2016 5:06 PM EST ----- Good result. [place] documented in this encounter [facility] Evaluation note Note Date & Type Note Facility documented in this encounter [facility] Additional Source Comments Source Comments (unrecognize d section and content) In the event this informatio n is protected by the Federal Confidentiality of Alcohol and Drug Abuse Patient Records regulations: The Federal rules restrict any use of the information to criminally investigate or prosecute any alcohol or drug abuse patient.[facility] FOR RECORDS PERTAINING TO PATIENTS WHO ARE OR HAVE BEEN ENROLLED IN A CHEMICAL DEPENDENCY/SUBSTANCEABUSE PROGRAM, SOME INFORMATION MAY BE OMITTED. This clinical summary was aggregated from multiple sources. Caution should be exercised in using it in the provision of clinical care. This summary normalizes information from multiple sources, and as a consequence, information in this document may materially change the coding, format and clinical context of patient data. In addition, data may be omitted in some cases. CLINICAL DECISIONS SHOULD BE BASED ON THE PRIMARY CLINICAL RECORDS. [employer] [facility]. provides no warranty or guarantee of the accuracy or completeness of information in this document.
[2023-04-29 14:21] LABS: Anion Gap 5 (5-15); BUN 11 mg/dL (7-18); Calcium,Total 9.5 mg/dL (8.5-10.1); Chloride 106 mmol/L (98-107); EST Glomerular Filtration Rate 76 mL/min (>60); Est Glom Filt Rate - Afr Amer 92 mL/min (>60); Estimated Creatinine Clearance 66.63 ml/min; Glucose 107 mg/dL (74-106); Potassium 3.9 mmol/L (3.5-5.1); Sodium Level 140 mmol/L (136-145); Troponin-I HS 10 pg/mL (3.0-78.0)
[2023-04-29 14:26] LABS: BNP,B-Type NATRIURETIC PEPTIDE 59.8 pg/mL (0-100)
[2023-04-29 15:03] VITALS: BP 130/59; PULSE 77; RESP 18; O2SAT 98
--- NOTE | 2023-04-29 15:08 | RAD_ITS ---
EXAM: XR CHEST, 1 VIEW CLINICAL INDICATION: dyspnea TECHNIQUE: Frontal view of the chest. COMPARISON: 2.8.23 FINDINGS: LUNGS AND PLEURAL SPACES: Unremarkable. No consolidation or edema. No pneumothorax. No effusion. HEART: Unremarkable. Cardiac silhouette not enlarged. MEDIASTINUM: Central airways and mediastinal contour are unremarkable. BONES/JOINTS: Unremarkable. No acute fracture. SOFT TISSUES: Unremarkable. RAD/Chest 1 View (Portable) IMPRESSION: No radiographic evidence of acute cardiopulmonary disease. Electronically Signed: Rene Meier MD at 15:25 EST ,
[2023-04-29 15:45] VITALS: BP 186/75; PULSE 60; RESP 22; O2SAT 96
== END 2023-04-29 15:46 | disposition home or self-care (01) ==
PROVIDERS: Emergency Provider Emergency Medicine; PCP Family Medicine; Visit Provider Emergency Medicine
DX: R06.02 Shortness of breath (principal); I48.0 Paroxysmal atrial fibrillation; Z95.5 Presence of coronary angioplasty implant and graft; Z79.01 Long term (current) use of anticoagulants; I25.10 Atherosclerotic heart disease of native coronary artery without angina pectoris; I10 Essential (primary) hypertension; I25.2 Old myocardial infarction; Z79.899 Other long term (current) drug therapy; Z79.82 Long term (current) use of aspirin; E03.9 Hypothyroidism, unspecified; E78.00 Pure hypercholesterolemia, unspecified
CPT/HCPCS: 71045; 80048; 83880; 84484; 85025; 87631; 93005; 96360; 96361; 99284; J7030; A4216

== ENCOUNTER → 2023-12-03 | Outpatient (CLI) | payer MEDICARE, OTHER, SELFPAY ==
--- NOTE | 2023-12-03 10:05 | MRI_ITS ---
STUDY: MRI BRAIN WITH AND WITHOUT CONTRAST REASON FOR EXAM: Male, 83 years old. INTERMITTENT DELIRIUM TECHNIQUE: Standardized multiplanar fat and water weighted pulse sequences were obtained. IV 20cc clariscan was administered for the contrast portion of the examination. COMPARISON: Head CT dated January 31, 2016. MRI of the brain dated January 20, 2020 FINDINGS: There is mild cerebral atrophy with widening of the extra-axial spaces and ventricular dilatation. There are a limited number of small white matter hyperintensities, distributed throughout the deep white matter tracts of the cerebral hemispheres, consistent with mild chronic white matter ischemic changes. There is no evidence for recent intracranial ischemia or other cause of cytotoxic edema on diffusion weighted imaging (DWI). Normal T2* images of the brain without demonstrated susceptibility artifact. There is no demonstrated hemosiderin stain. Normal bilateral basal ganglia. Normal thalami. There is no extra-axial fluid accumulation. Normal flow voids within the major intracranial circulation suggesting patency by spin echo criteria. Normal venous enhancement. There is no enhancing intra-axial or extra-axial abnormality. Normal sella turcica, pituitary gland, infundibular stalk, optic chiasm and hypothalamus. Normal tectal plate and pineal gland. Normal midbrain, rocky and medulla. Normal cerebellum. Normal basal cisterns. Normal bilateral temporal bones. Normal bilateral internal auditory canals. No demonstrated orbital abnormality, within the constraints of a routine brain study. Small bilateral mucosal cyst present in bilateral maxillary sinuses. Normal calvarium and skull base. Normal visualized soft tissue structures. Normal visualized upper cervical spine. MRI/Brain W/WO Contrast IMPRESSION: 1. Involutional changes of the brain, as described above. Electronically Signed: Darell Lee MD at 15:11 EDT Reading Location ID and State: [facility] / [place] , Service support ,
[2023-12-03 10:31] LABS: CREATININE FINGERSTICK < 1.0 mg/dL (0.70-1.30); EGFR FINGERSTICK > 60.0000 mL/min (>60)
== END | disposition home or self-care (01) ==
LOC: MRI 09:47
PROVIDERS: PCP Family Medicine; Referring Provider Family Medicine; Visit Provider Family Medicine
DX: R41.0 Disorientation, unspecified (principal); R41.3 Other amnesia
CPT/HCPCS: 70553; A9575

== ENCOUNTER → 2023-12-11 | Outpatient (CLI) | payer MEDICARE, OTHER, SELFPAY ==
[2023-12-11 15:27] LABS: Absolute Neutrophil Count 4.6 X10^3/uL (2.0-7.7); Basophil# 0.06 X10^3/uL; Basophil% 0.8 % (0-1); Eosinophil# 0.08 X10^3/uL; Eosinophils% 1.1 % (0-5); Hematocrit 45.2 % (40-54); Hemoglobin 14.7 g/dL (13.0-16.5); Lymphocyte % 25.2 % (19-41); Mean Corp Hgb Conc 32.5 g/dL (32-36); Mean Corpuscular Hgb 30.3 pg (27.0-32.0); Mean Corpuscular Volume 93.2 fL (80-94); Mean Platelet Vol. 10.3 fl (6.2-12.0); Monocyte# 0.61 X10^3/uL; Monocyte% 8.6 % (0-10); NRBC Flagged by Analyzer 0 % (0-5); Neutrophil # 4.56 X10^3/uL (2.7-7.7); Platelet Count 214 K/mm3 (150-450); RBC Distribution Width CV 12.4 % (11.6-14.6); RBC Distribution Width SD 42.5 fl (35.1-43.9); Red Blood Count 4.85 M/mm3 (4.6-6.2); White Blood Count 7.1 K/mm3 (4.4-11.0)
[2023-12-11 15:52] LABS: Vitamin D,25 Hydroxy 37.7 ng/mL
[2023-12-11 16:11] LABS: AST(SGOT) 21 U/L (15-37); Alanine Aminotransfer ALT/SGPT 40 U/L (16-61); Albumin, Serum 3.4 g/dL (3.2-5.0); Alkaline Phosphatase 120 U/L (45-117); Anion Gap 3 (5-15); BUN 21 mg/dL (7-18); BUN/Creat Ratio 17.6 RATIO (10-20); Calcium,Total 9.4 mg/dL (8.5-10.1); Chloride 104 mmol/L (98-107); Cholesterol 127 mg/dL (200); Creatinine, Serum 1.19 mg/dL (0.70-1.30); EST Glomerular Filtration Rate 62 mL/min (>60); Est Glom Filt Rate - Afr Amer 75 mL/min (>60); Globulin 3.3 g/dL (2.2-4.2); Glucose 145 mg/dL (74-106); High Density Lipoprotein 58 mg/dL; PSA,Total - Annual Screen 0.47 ng/mL (0.00-4.00); Potassium 4.2 mmol/L (3.5-5.1); Protein, Total 6.7 g/dL (6.4-8.2); Sodium Level 138 mmol/L (136-145); Triglycerides 96 mg/dL; Very Low Density Lipoprotein 19 mg/dL (5-40)
[2023-12-11 16:26] LABS: BNP,B-Type NATRIURETIC PEPTIDE 15.2 pg/mL (0-100)
== END | disposition home or self-care (01) ==
LOC: BFHLAB 13:33
PROVIDERS: PCP Family Medicine; Referring Provider Family Medicine; Visit Provider Family Medicine
DX: I10 Essential (primary) hypertension (principal); E78.5 Hyperlipidemia, unspecified; E03.9 Hypothyroidism, unspecified; E55.9 Vitamin D deficiency, unspecified; R06.02 Shortness of breath; Z12.5 Encounter for screening for malignant neoplasm of prostate
CPT/HCPCS: 36415; 80053; 80061; 82306; 83880; 84153; 84439; 84443; 85025; G0103

== ENCOUNTER 2023-12-25 22:43 | Emergency (ER) | payer MEDICARE, OTHER, SELFPAY ==
[2023-12-25 22:53] VITALS: BP 109/65; PULSE 61; RESP 18; TEMP 34.9; O2SAT 97; BMI 35.9
[2023-12-25 22:58] VITALS: O2SAT 96
[2023-12-25 23:22] LABS: Absolute Lymphocyte Count 2.52 X10^3/uL (0.83-4.51); Absolute Neutrophil Count 6.8 X10^3/uL (2.0-7.7); Basophil# 0.07 X10^3/uL; Basophil% 0.7 % (0-1); Eosinophil# 0.12 X10^3/uL; Eosinophils% 1.1 % (0-5); Hematocrit 45.9 % (40-54); Hemoglobin 15.7 g/dL (13.0-16.5); Lymphocyte # 2.52 X10^3/ul (0.83-4.51); Lymphocyte % 23.5 % (19-41); Mean Corp Hgb Conc 34.2 g/dL (32-36); Mean Corpuscular Volume 87.6 fL (80-94); Mean Platelet Vol. 9.9 fl (6.2-12.0); Monocyte# 1.15 X10^3/uL; Monocyte% 10.7 % (0-10); NRBC Flagged by Analyzer 0 % (0-5); Neutrophil # 6.83 X10^3/uL (2.7-7.7); Neutrophil % 63.6 % (47-70); Platelet Count 238 K/mm3 (150-450); RBC Distribution Width SD 38.5 fl (35.1-43.9); Red Blood Count 5.24 M/mm3 (4.6-6.2); White Blood Count 10.7 K/mm3 (4.4-11.0)
--- NOTE | 2023-12-25 23:22 | RAD_ITS ---
STUDY: X-RAY CHEST REASON FOR EXAM: Male, 83 years old. dyspnea TECHNIQUE: Single frontal view of the chest. COMPARISON: 12/29 2023 FINDINGS: The lungs are clear and expanded. There is no demonstrated pleural abnormality. Normal size heart. Normal mediastinum and harinder. Normal visualized pulmonary arteries. Normal visualized aortic arch and descending thoracic aorta. Normal visualized thoracic spine. Normal visualized ribs, clavicles, and shoulders. There is no demonstrated abnormality of the visualized soft tissue structures of the upper abdomen. RAD/Chest 1 View (Portable) IMPRESSION: Normal x-ray examination of the chest. Electronically Signed: Gil Gilbert MD at 0:10 EDT ,
[2023-12-25 23:35] LABS: Anion Gap 8 (5-15); BUN 32 mg/dL (7-18); BUN/Creat Ratio 17.7 RATIO (10-20); Calcium,Total 10.8 mg/dL (8.5-10.1); Chloride 93 mmol/L (98-107); Creatinine, Serum 1.81 mg/dL (0.70-1.30); EST Glomerular Filtration Rate 38 mL/min (>60); Est Glom Filt Rate - Afr Amer 47 mL/min (>60); Glucose 130 mg/dL (74-106); Magnesium 1.8 mg/dL (1.6-2.6); Potassium 3.7 mmol/L (3.5-5.1); Sodium Level 136 mmol/L (136-145); Troponin-I HS 6 pg/mL (3.0-78.0)
--- NOTE | 2023-12-25 23:45 | EDS_ITS ---
HPI History of Present Illness Chief Complaint: Shortness of Breath Informant: patient and spouse/S.O. Narrative Narrative: Patient is 83-year-old male with past ministry of coronary artery disease with stent placement in 2010 as well as hypertension paroxysmal atrial fibrillation and peripheral vascular disease. also reports that he has been developing memory issues recently. Patient states that he felt short of breath for approximate 1 hour prior to arrival but after arriving to the ER he states he no longer feels this way. reports they have received recent vaccinations such as COVID influenza and shingles but denies any fevers or known sick contacts. However with his complex medical history there was concern that this could be an infectious process or even cardiac and therefore he was sent in for evaluation [facility] Medical History Contact with and (suspected) exposure to other viral communicable diseases Acute bronchitis, unspecified PVD (peripheral vascular disease) Pure hypercholesterolemia Presence of stent in coronary artery (~01/11/11) Essential hypertension Atherosclerotic heart disease of [place] coronary artery without angina pectoris Paroxysmal atrial fibrillation Stenosis of right carotid artery Obstructive sleep apnea Other exterminator termite (current) drug therapy Myocardial infarct, old Abnormal nuclear stress test Shortness of breath PVD (peripheral vascular disease) Obesity (BMI 35.0-39.9 without comorbidity) Hypothyroidism Home Medications ?Medication ?Instructions ?Recorded ?Last Taken ?Type aspirin 81 mg chewable tablet 81 mg PO DAILY@0800 01/31/16 Unknown History carvedilol 6.25 mg tablet 6.25 mg PO BID 01/31/16 Unknown History levothyroxine 88 mcg tablet 88 mcg PO DAILY 01/31/16 Unknown History calcium carbonate 600 mg-vitamin 2 ea PO DAILY 07/24/19 Unknown History D3 20 mcg (800 unit) tablet montelukast 10 mg tablet 10 mg PO DAILY 08/01/19 Unknown History acetaminophen 650 mg 650 mg PO Q12H 03/09/21 Unknown History tablet,extended release (Tylenol Arthritis Pain) cetirizine 10 mg capsule 10 mg PO DAILY 03/09/21 Unknown History triamcinolone acetonide 55 mcg 1 spray intranasal PRN PRN Nasal 03/09/21 Unknown History nasal spray aerosol Congestion budesonide-formoterol HFA 160 2 puff inhalation BID PRN sob 06/10/21 Unknown History mcg-4.5 mcg/actuation aerosol inhaler (Symbicort) light mineral oil 1 %-mineral oil 1 drp ophthalmic (eye) PRN PRN dry 09/29/21 Un known History 4.5 % eye drops (Soothe XP) eyes rivaroxaban 20 mg tablet (Xarelto) See Rx Instructions .Route 08/08/23 Unknown Rx .COMPLEX #90 tabs rosuvastatin 20 mg tablet 20 mg PO QHS 08/17/23 Unknown History lisinopril 20 mg tablet 20 mg PO BID #180 tabs 09/20/23 Unknown Rx nitroglycerin 0.4 mg sublingual 0.4 mg sublingual Q5-15M PRN Chest 10/10/23 Unknown Rx tablet Pain #25 tabs furosemide 40 mg tablet 40 mg PO DAILY 12/25/23 Unknown History metolazone 2.5 mg tablet 2.5 mg PO DAILY 12/25/23 Unknown History potassium chloride 20 mEq 20 meq PO DAILY 12/25/23 Unknown History tablet,extended release Allergy/AdvReac Type Severity Reaction Status Date / Time No Known Allergies Allergy Verified 12/25/23 22:55 Family History Father CAD (coronary artery disease) Colon cancer Hypertension Mother CAD (coronary artery disease) CVA (cerebral vascular accident) Brother CAD (coronary artery disease) Brother COPD (chronic obstructive pulmonary disease) Surgical History History of basal cell carcinoma excision History of cardiac radiofrequency ablation (~01/2015) History of cataract surgery History of neck surgery History of right-sided carotid endarterectomy (~06/2012) History of shoulder surgery S/P PTCA (percutaneous transluminal coronary angioplasty) (~01/11/11) Social History Smoking Status: Never smoker alcohol intake: never substance use type: does not use caffeine: No what type of physical activity do you participate in: none seatbelt use: always do you feel safe at home: Yes ROS ROS ED Constitutional Constitutional ED: Denies chills or fever(s) Eyes Eyes: Denies blurry vision or change in vision ENT ENT ED: Denies rhinorrhea or sore throat Cardiovascular Cardiovascular: Reports other Details: Positive leg edema ; Denies chest pain, palpitations or racing heartbeat Respiratory/Chest Respiratory/Chest: Reports dyspnea; Denies cough Gastrointestinal Gastrointestinal: Denies abdominal pain, diarrhea, nausea or vomiting Genitourinary Genitourinary ED: Denies dysuria Musculoskeletal Musculoskeletal: Denies myalgias Integumentary Denies rash Neurologic Neurologic: Denies headache(s) Hematologic/Lymphatic Hematologic/Lymphatic: Reports easy bleeding and easy bruising Allergic/Immunologic Allergic/Immunologic ED: Denies mouth swelling or tongue swelling EXAM Physical Exam Const Vital Signs: 12/25/23 22:53 12/25/23 22:58 12/25/23 23:49 Temperature 94.9 F L Temperature Source Axillary Pulse Rate 61 61 Respiratory Rate 18 17 Respiratory Effort Normal Respiratory Depth Normal Respiratory Pattern Normal Blood Pressure 109/65 103/58 L Blood Pressure Mean 79 73 Pulse Ox 97 95 Oxygen Delivery Method Room Air Room Air Room Air 12/26/23 00:00 12/26/23 01:11 12/26/23 01:36 Temperature 98.5 F Temperature Source Pulse Rate 58 L 76 62 Respiratory Rate 12 12 12 Respiratory Effort Respiratory Depth Respiratory Pattern Blood Pressure 92/47 L 111/60 121/58 H Blood Pressure Mean 62 77 79 Pulse Ox 97 98 97 Oxygen Delivery Method Room Air Positive well nourished, well developed and obese General Appearance ED: well developed; Negative for pallor Nutritional Appearance: obese HEENT Reports moist mucous membranes HEENT Narrative: No tongue or lip swelling no oral lesions no airway edema or compromise There is cobblestoning the posterior pharynx consistent with sinus drainage No secondary findings to suggest infection Eyes PERRL and EOMs intact bilaterally General Eye ED: Negative for pale conjunctiva or scleral icterus Neck supple and no JVD Neck Narrative: No nuchal rigidity or meningeal signs noted Chest Wall palpation of chest normal Chest Narrative: No bony deformity or crepitance Resp normal respiratory effort and clear to auscultation bilaterally Resp Narrative: Breath sounds are slight diminished throughout but overall clear to auscultation without nasal flaring retractions tachypnea or accessory muscle use Cardio regular rate and regular rhythm GI normal to inspection, nondistended, normoactive bowel sounds, non-tender, non- distended and no masses GI Narrative: No voluntary guarding or rigidity or pulsatile mass No fluid wave noted Auscultation: normoactive bowel sounds Palpation: soft Extremity Extremity Narrative: There is trace to +1 pitting edema to the bilateral lower extremities that are equal and symmetric Negative Homans' sign bilaterally Neuro CN's II-XII intact bilaterally Sensorium / Orientation: alert Psych mental status grossly normal Skin no rashes or lesions noted General Skin Exam: Negative for jaundice or pallor MDM MDM MDM Narrative Medical decision making narrative: Patient arrived to ER satting in the mid to high 90s on room air and reported spontaneous improvement of his symptoms. Based on his complex medical history and report of shortness of breath there is concern this could be acute coronary syndrome versus cardiac dysrhythmia versus acute blood loss anemia versus pneumonia versus congestive heart failure exacerbation versus pneumothorax or infectious process such as COVID or influenza. Secondary to this basic labs and a chest x-ray were obtained. EKG was sinus rhythm going against cardiac dysrhythmia and a troponin was 6 going against ACS. Chest x-ray revealed no pneumonia pneumothorax or pleural effusion going against an infectious process or fluid overload. Patient's hemoglobin is stable at 16 going against acute blood loss anemia. The patient was ambulated and his pulse ox remained above 90%. Therefore at this time I do not have an infectious cause such as pneumonia COVID or influenza there are no signs of fluid overload such as CHF exacerbation and there are no findings of acute coronary syndrome or cardiac dysrhythmia. Therefore do not feel there is need for admission and patient is otherwise safe for discharge. The patient's creatinine is slightly elevated at 1.8 which is above his baseline of approximately 1. However he has been on multiple diuretics secondary to history of peripheral edema/CHF. Therefore the elevated value is necessary for the fluid reduction and I do not feel there is need for admission or further workup regarding this value as we have a known cause for it History & Record Review Discussion w/independent historian: Patient and Significant other Lab Data Attestation: I reviewed the patient's lab results. Labs: Laboratory Results - last 24 hr 12/25/23 22:30 WBC 10.7 RBC 5.24 Hgb 15.7 Hct 45.9 MCV 87.6 MCH 30.0 MCHC 34.2 RDW Std Deviation 38.5 RDW Coeff of Rogelio 12.0 Plt Count 238 MPV 9.9 Immature Gran % (Auto) 0.400 Neut % (Auto) 63.6 Lymph % (Auto) 23.5 Reynolds % (Auto) 10.7 H Eos % (Auto) 1.1 Baso % (Auto) 0.7 Absolute Neuts (auto) 6.8 Absolute Lymphs (auto) 2.52 Nucleated RBC % 0 Sodium 136 Potassium 3.7 Chloride 93 L Carbon Dioxide 35.0 H Anion Gap 8 BUN 32 H Creatinine 1.81 H Estim Creat Clear Calc 35.60 Est GFR (MDRD) Af Amer 47 L Est GFR (MDRD) Non-Af 38 L BUN/Creatinine Ratio 17.7 Glucose 130 H Calcium 10.8 H Magnesium 1.8 Troponin I High Sens 6 B-Natriuretic Peptide 13.5 Radiography Diagnostic Testing: Clinical Impression(s) from Imaging Studies Chest X-Ray 12/25/23 23:22 IMPRESSION: Normal x-ray examination of the chest. Electronically Signed: Gil Gilbert MD at 0:10 EDT Reading Location ID and State: [facility] / [place] Tel , Service support , 1 view chest x-ray as interpreted by the emergency medicine physician reveals no acute infiltrate pneumothorax or pleural effusion Discharge Plan Triage Chief Complaint: Shortness of Breath ED Provider: Jurgen Pride Dx/Rx/DC Orders Clinical Impression: Dyspnea, Hypothyroidism, Paroxysmal atrial fibrillation, Essential hypertension, CAD (coronary artery disease), Renal insufficiency Instructions: ED Dyspnea Prescriptions: No Action montelukast 10 mg tablet 10 mg PO DAILY acetaminophen [Tylenol Arthritis Pain] 650 mg tablet extended release 650 mg PO Q12H budesonide-formoterol [Symbicort] 160-4.5 mcg/actuation HFA aerosol inhaler 2 puff INHALATION BID PRN (Reason: sob) Soothe XP 1-4.5 % drops 1 drp ophthalmic (eye) PRN PRN (Reason: dry eyes) rosuvastatin 20 mg tablet 20 mg PO QHS carvedilol 6.25 MG tablet 6.25 mg PO BID levothyroxine 88 MCG tablet 88 mcg PO DAILY aspirin 81 MG tablet,chewable 81 mg PO DAILY@0800 cetirizine 10 mg capsule 10 mg PO DAILY calcium carbonate-vitamin D3 1 EACH tablet 2 ea PO DAILY triamcinolone acetonide 55 mcg aerosol,spray 1 spray intranasal PRN PRN (Reason: Nasal Congestion) furosemide 40 mg tablet 40 mg PO DAILY metolazone 2.5 mg tablet 2.5 mg PO DAILY potassium chloride 20 mEq tablet extended release 20 meq PO DAILY Xarelto 20 mg tablet See Rx Instructions .ROUTE .COMPLEX Qty: 90 3RF Dose Instruction: TAKE 1 TABLET BY MOUTH EVERY DAY Rx Instructions: TAKE 1 TABLET BY MOUTH EVERY DAY lisinopril 20 mg tablet 20 mg PO BID Qty: 180 3RF nitroglycerin 0.4 mg tablet, sublingual 0.4 mg SUBLINGUAL Q5-15M PRN (Reason: Chest Pain) Qty: 25 1RF Primary Care Provider: Fidel Maurer Referrals: Fidel Maurer DO [Primary Care Provider] - Activity Restrictions/Additional Instructions: Please continue your home medications as directed by your doctor. Your workup today revealed no sign of lung infection such as pneumonia or fluid within your lung tissue and no signs of cardiac event or heart damage. Follow-up with your family doctor for repeat evaluation and return to the ER should you have any further concerns or worsening of symptoms Print Language: [place] Disposition Disposition: Home, Self Care Discharge Date/Time: 12/26/23 01:40
[2023-12-25 23:49] VITALS: BP 103/58; PULSE 61; RESP 17; O2SAT 95
[2023-12-25 23:59] LABS: BNP,B-Type NATRIURETIC PEPTIDE 13.5 pg/mL (0-100)
[2023-12-26] VITALS: BP 92/47; PULSE 58; RESP 12; O2SAT 97
[2023-12-26] MEDS: 0.9% Normal Saline (500mL Bag) 500 ML 999 ML IV (00:08)
[2023-12-26 01:11] VITALS: BP 111/60; PULSE 76; RESP 12; O2SAT 94; O2SAT 98
[2023-12-26 01:36] VITALS: BP 121/58; PULSE 62; RESP 12; TEMP 36.9; O2SAT 97
== END 2023-12-26 01:40 | disposition home or self-care (01) ==
PROVIDERS: Emergency Provider Emergency Medicine; PCP Family Medicine; Visit Provider Emergency Medicine
DX: R06.02 Shortness of breath (principal); I11.0 Hypertensive heart disease with heart failure; I50.9 Heart failure, unspecified; I48.0 Paroxysmal atrial fibrillation; E03.9 Hypothyroidism, unspecified; E78.00 Pure hypercholesterolemia, unspecified; N28.9 Disorder of kidney and ureter, unspecified; I25.10 Atherosclerotic heart disease of native coronary artery without angina pectoris; I25.2 Old myocardial infarction; Z79.82 Long term (current) use of aspirin; Z79.899 Other long term (current) drug therapy; Z98.61 Coronary angioplasty status
CPT/HCPCS: 71045; 80048; 83735; 83880; 84484; 85025; 87631; 93005; 96360; 99283

== ENCOUNTER 2024-01-08 16:27 | Inpatient (IN) | payer MEDICARE, OTHER, SELFPAY ==
[2024-01-08] VITALS (8 sets, daily range): BP systolic 118–172; BP diastolic 60–85; PULSE 55–70; RESP 15–18; TEMP 36.1–36.8; O2SAT 95–100; BMI 36.6; BMI 35.6
--- NOTE | 2024-01-08 08:00 | RAD_ITS ---
INDICATION: PAIN EXAMINATION/TECHNIQUE: X-RAY - RIGHT XR Tibia/Fibula 2 Views COMPARISON: None. FINDINGS: 4 views of the right tib-fib. BONES: Normal anatomic alignment without evidence of fracture or subluxation. No concerning bony lesion or abnormal sclerosis to suggest lesion. JOINTS: No significant degenerative change. SOFT TISSUES: Dense atherosclerotic vascular calcifications. Achilles enthesophyte. RAD/Tibia & Fibula 2 Views IMPRESSION: No acute osseous abnormality of the right tib-fib. Electronically Signed: Chip Tatum MD at 21:38 EDT ,
--- NOTE | 2024-01-08 19:50 | RAD_ITS ---
INDICATION: venous statis ulcers EXAMINATION/TECHNIQUE: X-RAY - LEFT XR Tibia/Fibula 2 Views COMPARISON: None. FINDINGS: 4 views of the left tib-fib. BONES: Normal anatomic alignment without evidence of fracture or subluxation. No concerning bony lesion or abnormal sclerosis to suggest lesion. JOINTS: No significant degenerative change. SOFT TISSUES: Dense atherosclerotic vascular calcifications. Inferior calcaneal and Achilles enthesophytes. RAD/Tibia & Fibula 2 Views IMPRESSION: No acute osseous abnormality of the left tib-fib. Electronically Signed: Chip Tatum MD at 21:03 EDT ,
--- NOTE | 2024-01-08 19:50 | EKG12_ITS ---
Test Reason : DYSRHYTHMIA Blood Pressure : / mmHG Vent. Rate : 061 BPM Atrial Rate : 061 BPM P-R Int : 250 ms QRS Dur : 094 ms QT Int : 366 ms P-R-T Axes : 032 037 025 degrees QTc Int : 368 ms Sinus rhythm with 1st degree A-V block Low voltage QRS Septal infarct , age undetermined Abnormal ECG Confirmed by AXEL CARTER, TEE ([id number]), video editor RIGOBERTO MCCABE ([id number]) on 01/10/2024 1:06:12 PM Referred By: TB Confirmed By:TEE REYNA MD
[2024-01-08 20:11] LABS: Absolute Lymphocyte Count 2.13 X10^3/uL (0.83-4.51); Absolute Neutrophil Count 4.8 X10^3/uL (2.0-7.7); Basophil# 0.06 X10^3/uL; Basophil% 0.8 % (0-1); Eosinophil# 0.16 X10^3/uL; Hemoglobin 13.2 g/dL (13.0-16.5); Lymphocyte # 2.13 X10^3/ul (0.83-4.51); Lymphocyte % 27.3 % (19-41); Mean Corpuscular Hgb 30.3 pg (27.0-32.0); Mean Corpuscular Volume 91.7 fL (80-94); Mean Platelet Vol. 9.8 fl (6.2-12.0); Monocyte# 0.66 X10^3/uL; Monocyte% 8.5 % (0-10); NRBC Flagged by Analyzer 0 % (0-5); Neutrophil # 4.77 X10^3/uL (2.7-7.7); Platelet Count 193 K/mm3 (150-450); RBC Distribution Width CV 12.3 % (11.6-14.6); RBC Distribution Width SD 41.6 fl (35.1-43.9); Red Blood Count 4.36 M/mm3 (4.6-6.2); White Blood Count 7.8 K/mm3 (4.4-11.0)
--- NOTE | 2024-01-08 20:20 | RAD_ITS ---
INDICATION: chest pain EXAMINATION/TECHNIQUE: X-RAY - XR Chest 2 Views COMPARISON: 12/25/2023 chest radiograph. Findings: Frontal and lateral views of the chest. LUNG PARENCHYMA: No acute focal airspace disease or mass lesion. PLEURA: No pleural effusion. No pneumothorax. HEART/[place]: Cardiomediastinal silhouette is unremarkable. BONES: Osseous structures are unremarkable for age. RAD/Chest PA and Lateral IMPRESSION: Chest with no acute disease. Electronically Signed: Chip Tatum MD at 21:27 EDT ,
[2024-01-08 20:32] LABS: Anion Gap 3 (5-15); BUN 29 mg/dL (7-18); BUN/Creat Ratio 21.5 RATIO (10-20); Chloride 108 mmol/L (98-107); Creatinine, Serum 1.35 mg/dL (0.70-1.30); EST Glomerular Filtration Rate 54 mL/min (>60); Est Glom Filt Rate - Afr Amer 65 mL/min (>60); Estimated Creatinine Clearance 49.82 ml/min; Glucose 103 mg/dL (74-106); Potassium 4.6 mmol/L (3.5-5.1); Sodium Level 142 mmol/L (136-145); Troponin-I HS (w/2H Reflex) 8 pg/mL (3.0-78.0)
[2024-01-08 20:39] LABS: Lactic Acid 1.4 mmol/L (0.4-1.9)
[2024-01-08 21:45] LABS: BNP,B-Type NATRIURETIC PEPTIDE < 2.0 pg/mL (0-100)
[2024-01-08 22:06] LABS: Reflex Troponin-HS? (from REC) Y
--- NOTE | 2024-01-08 22:12 | EX.ED.DYSGE1 ---
HPI History of Present Illness Chief Complaint: Edema Narrative Narrative: Patient is a 83-year-old male with past medical history of peripheral vascular disease, hypertension, paroxysmal atrial fibrillation on Xarelto, VINOD who presents to the emergency department with a chief complaint of increased bilateral lower extremity swelling up to his thighs, shortness of breath and not feeling well. According to his significant other bedside she notes that he has had some ulcers develop in his lower extremities secondary to the swelling and notes that this has been going on for some time however notes that he was recently was placed on oral Lasix and notes that the swelling did improve with this however he has been off now for a few days and he once again is having worsening swelling up to his mid thighs with shortness of breath which prompted them to come back here for further evaluation management. 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 Myocardial infarct, old Abnormal nuclear stress test Shortness of breath PVD (peripheral vascular disease) Obesity (BMI 35.0-39.9 without comorbidity) Hypothyroidism Home Medications ?Medication ?Instructions ?Recorded ?Last Taken ?Type aspirin 81 mg chewable tablet 81 mg PO DAILY@0800 01/31/16 Unknown History carvedilol 6.25 mg tablet 6.25 mg PO BID 01/31/16 Unknown History levothyroxine 88 mcg tablet 88 mcg PO DAILY 01/31/16 Unknown History acetaminophen 650 mg 650 mg PO Q12H 03/09/21 Unknown History tablet,extended release (Tylenol Arthritis Pain) budesonide-formoterol HFA 160 2 puff inhalation BID PRN sob 06/10/21 Unknown History mcg-4.5 mcg/actuation aerosol inhaler (Symbicort) light mineral oil 1 %-mineral oil 1 drp ophthalmic (eye) PRN PRN dry 09/29/21 Unknown History 4.5 % eye drops (Soothe XP) eyes rivaroxaban 20 mg tablet (Xarelto) See Rx Instructions .Route 08/08/23 Unknown Rx .COMPLEX #90 tabs rosuvastatin 20 mg tablet 20 mg PO DAILY 08/17/23 Unknown History lisinopril 20 mg tablet 20 mg PO BID #180 tabs 09/20/23 Unknown Rx nitroglycerin 0.4 mg sublingual 0.4 mg sublingual Q5-15M PRN Chest 10/10/23 Unknown Rx tablet Pain #25 tabs calcium 600 mg (as 2 tab PO BID 01/08/24 Unknown History carbonate)-vitamin D3 20 mcg (800 unit) tablet (Caltrate with Vitamin D3) cetirizine 10 mg capsule (All Day 10 mg PO DAILY 01/08/24 Unknown History Allergy (cetirizine)) furosemide 40 mg tablet 40 mg PO DAILY 01/08/24 Unknown History metolazone 2.5 mg tablet 2.5 mg PO DAILY 01/08/24 Unknown History potassium chloride 20 mEq 20 meq PO DAILY 01/08/24 Unknown History tablet,extended release Allergy/AdvReac Type Severity Reaction Status Date / Time No Known Allergies Allergy Verified 01/08/24 16:27 Family History Father CAD (coronary artery disease) Colon cancer Hypertension Mother CAD (coronary artery disease) CVA (cerebral vascular accident) Brother CAD (coronary artery disease) Brother COPD (chronic obstructive pulmonary disease) Surgical History History of basal cell carcinoma excision History of cataract surgery History of neck surgery History of shoulder surgery History of right-sided carotid endarterectomy (~06/2012) History of cardiac radiofrequency ablation (~01/2015) S/P PTCA (percutaneous transluminal coronary angioplasty) (~01/11/11) Social History (Updated 01/08/24 @ 22:[address] Lashonda Castillo MD) household members: spouse Smoking Status: Never smoker alcohol intake: never substance use type: does not use caffeine: No what type of physical activity do you participate in: none seatbelt use: always do you feel safe at home: Yes ROS ROS ED ROS Narrative Constitutional: Denies fevers, chills, headaches, lightness, dizziness Eyes: Denies change in vision double vision blurry vision Cardiovascular: Denies chest pain or palpitations Respiratory: Complaint shortness of breath as noted above denies coughing wheezing Abdomen: Denies abdominal pain nausea vomit diarrhea : Denies any urinary symptoms Neurological: Denies numbness, wheeze, tingling Musculoskeletal: Complains of bilateral lower extremity swelling as noted above Skin: Complains of ulcers noted to his legs bilaterally from his swelling EXAM Physical Exam Narrative Exam Narrative: General: Patient lying in bed rest comfortably did not appear to be acute distress Head: Atraumatic, normocephalic Eyes: PERRL bilateral, EOMI bilateral, no conjunctival injection noted Neck: Soft, supple, trach midline Cardiovascular: Regular rate and rhythm no murmurs gallops rubs noted Respiratory: Clear to auscultation bilaterally no rales rhonchi or wheeze noted Abdomen: Soft, nondistended, nontender to palpation, bowel sounds present x 4 Extremities: Patient has 2+ pitting edema in the bilateral lower extremities, +4/5 strength noted in the bilateral lower extremities Neurological: Patient is following commands knew that he was at [facility] years 2023 Skin: Patient has a ulcer noted to the medial aspect of his left lower extremity as well as 1 to the right lower extremity no surrounding erythema or concern for cellulitis at this point in time. Const Vital Signs: 01/08/24 16:28 01/08/24 19:24 01/08/24 19:25 Temperature 97.3 F L 97 F L Temperature Source Temporal Oral Pulse Rate 70 65 Respiratory Rate 18 18 Respiratory Effort Normal Respiratory Pattern Normal Blood Pressure 150/64 H 172/85 H Blood Pressure Mean 92 114 Pulse Ox 97 100 Oxygen Delivery Method Room Air Room Air 01/08/24 20:15 01/08/24 21:06 01/08/24 22:00 Temperature 98.2 F Temperature Source Oral Pulse Rate 57 L 57 L 55 L Respiratory Rate 17 15 18 Respiratory Effort Respiratory Pattern Blood Pressure 123/66 H 118/62 133/62 H Blood Pressure Mean 85 80 85 Pulse Ox 98 98 97 Oxygen Delivery Method Room Air Room Air Room Air 01/08/24 22:35 Temperature 98.3 F Temperature Source Pulse Rate 58 L Respiratory Rate 18 Respiratory Effort Respiratory Pattern Blood Pressure 133/60 H Blood Pressure Mean 84 Pulse Ox 97 Oxygen Delivery Method MDM MDM MDM Narrative Medical decision making narrative: Patient is a 83-year-old male who presented to the emergency department with a chief complaint of shortness of breath and increased lower extremity swelling. Patient will have workup performed here on the differential diagnose includes Melamin to ACS, pneumonia, CHF, upper respiratory infection second viral etiology. Will hold off on IV fluid as there is concern for CHF component. Patient's CBC reviewed and showed no evidence leukocytosis white blood count normal at 7.8, hemoglobin stable 13.2, platelet count was noted be normal at 193. Patient sodium normal at 142, potassium normal 4.6, creatinine was noted to be 1.35 this appears to be around his baseline, lactic acid normal at 1.4, troponin normal at 8 with a delta troponin pending. Patient's EKG was reviewed and showed sinus rhythm with a rate of 61 bpm. Patient's proBNP was noted be less than 2 however he is obese this is likely low. Patient's x-ray of his chest reviewed and showed no acute cardiopulmonary processes. Patient's x-ray of his tib-fib's bilaterally did not show any acute osseous abnormalities. Patient was ambulated here in the emergency department he became hypoxic to 88%. At this point time do believe the patient will warrant admission to the hospital he was given 40 mg of IV Lasix. Patient's case discussed with hospitalist Dr. Castillo who accept patient for admission. Patient was notified with all question concerns answered bedside. Lab Data Labs: Laboratory Results - last 24 hr 01/08/24 01/08/24 19:30 22:09 WBC 7.8 RBC 4.36 L Hgb 13.2 Hct 40.0 MCV 91.7 MCH 30.3 MCHC 33.0 RDW Std Deviation 41.6 RDW Coeff of Rogelio 12.3 Plt Count 193 MPV 9.8 Immature Gran % (Auto) 0.400 Neut % (Auto) 61.0 Lymph % (Auto) 27.3 Murray % (Auto) 8.5 Eos % (Auto) 2.0 Baso % (Auto) 0.8 Absolute Neuts (auto) 4.8 Absolute Lymphs (auto) 2.13 Nucleated RBC % 0 Sodium 142 Potassium 4.6 Chloride 108 H Carbon Dioxide 31.0 Anion Gap 3 L BUN 29 H Creatinine 1.35 H Estim Creat Clear Calc 49.82 Est GFR (MDRD) Af Amer 65 Est GFR (MDRD) Non-Af 54 L BUN/Creatinine Ratio 21.5 H Glucose 103 Lactic Acid 1.4 Calcium 10.0 Troponin I High Sens 8 7 B-Natriuretic Peptide < 2.0 Radiography Diagnostic Testing: Clinical Impression(s) from Imaging Studies Tibia/Fibula X-Ray 01/08/24 08:00 IMPRESSION: No acute osseous abnormality of the right tib-fib. Electronically Signed: Chip Tatum MD at 21:38 EDT , Tibia/Fibula X-Ray 01/08/24 19:50 IMPRESSION: No acute osseous abnormality of the left tib-fib. Electronically Signed: Chip Tatum MD at 21:03 EDT , Chest X-Ray 01/08/24 20:20 IMPRESSION: Chest with no acute disease. Electronically Signed: Chip Tatum MD at 21:27 EDT , Discharge Plan Triage Chief Complaint: Edema Other Complaint: Wound ED Provider: Carlos Fernández Dx/Rx/DC Orders Clinical Impression: CHF (congestive heart failure), Hypoxia, Dyspnea on exertion Prescriptions: No Action acetaminophen [Tylenol Arthritis Pain] 650 mg tablet extended release 650 mg PO Q12H budesonide-formoterol [Symbicort] 160-4.5 mcg/actuation HFA aerosol inhaler 2 puff INHALATION BID PRN (Reason: sob) Soothe XP 1-4.5 % drops 1 drp ophthalmic (eye) PRN PRN (Reason: dry eyes) rosuvastatin 20 mg tablet 20 mg PO DAILY carvedilol 6.25 MG tablet 6.25 mg PO BID levothyroxine 88 MCG tablet 88 mcg PO DAILY aspirin 81 MG tablet,chewable 81 mg PO DAILY@0800 All Day Allergy (cetirizine) 10 mg capsule 10 mg PO DAILY calcium carbonate-vitamin D3 [Caltrate with Vitamin D3] 600 mg-20 mcg (800 unit) tablet 2 tab PO BID furosemide 40 mg tablet 40 mg PO DAILY metolazone 2.5 mg tablet 2.5 mg PO DAILY potassium chloride 20 mEq tablet extended release 20 meq PO DAILY Xarelto 20 mg tablet See Rx Instructions .ROUTE .COMPLEX Qty: 90 3RF Dose Instruction: TAKE 1 TABLET BY MOUTH EVERY DAY Rx Instructions: TAKE 1 TABLET BY MOUTH EVERY DAY lisinopril 20 mg tablet 20 mg PO BID Qty: 180 3RF nitroglycerin 0.4 mg tablet, sublingual 0.4 mg SUBLINGUAL Q5-15M PRN (Reason: Chest Pain) Qty: 25 1RF Primary Care Provider: Fidel Maurer Referrals: Fidel Maurer DO [Primary Care Provider] - Print Language: Slovak
[2024-01-08 22:35] LABS: Troponin-I HS 7 pg/mL (3.0-78.0)
--- NOTE | 2024-01-08 22:47 | ED.RN ---
PT HAD O2 SAT OF 88% WHILE WALKING BUT DID RECOVER TO 96% WHILE STILL AMBULATORY.
--- NOTE | 2024-01-08 22:48 | HP.PCM.HOS_ITS ---
HPI - General General Date of Admission: 01/08/24 Date of Service: 01/08/24 Chief Complaint: Dyspnea, worsening BL LE edema. HPI Narrative The patient is an 83 y/o M w/ PMHx: Asthma w/ allergic rhinitis, Obesity, PAF, VINOD, HTN, HLD, PVD, CAD s/p PCI, Hypothyroidism, Carotid disease, recent cardiology evaluation 12/28/23 with in their note no dyspnea complaints and transient lower extremity swelling issues treated by primary care physician reportedly with review of scripts noting 12/17/23 prescription for Lasix 40 mg 1 p.o. daily with a 7-day supply administered at that time in addition to a similar metolazone 2.5 mg 1 tablet daily for 7-day duration as well who presents to the [facility] ED on 01/08/24 with history of progressively worsening bilateral lower extremity swelling up into his more proximal thighs with increasing fatigue and malaise as well as shortness of breath with associated stasis ulcer development on his lower extremities although this has been a chronic issue recently worsened given his increasing swelling outpatient recently placed on oral Lasix with some improvement however he has been off this for several days and now it is increasing again with worsening dyspnea prompting ED evaluation to be cautious. Him and his are uncertain of specific weight gain but do admit to worsening lower extremity swelling, orthopnea and exertional dyspnea. He does report that since he has had increased swelling he has had some stasis blisters and has 2 small open wounds on his distal lower extremities medially. Workup in the ED included T97.3, heart rate 70, BP 150/64, respiratory rate 18, 97% on room air with most recent repeat vitals heart rate 58, BP 133/62, respiratory rate 18, 97% on room air and with ambulation patient per discussion with RN decreased to 88% but he recovered by the time he was taken back to his ED bed, CBC with WBC 7.8, human 13.2, platelet 193 without marked shift, BMP with chloride 108, BUN/creatinine 29/1.35, GFR 54, lactic acid 1.4, BNP less than 2, troponin 8 with repeat delta pending and most recent prior to this noted 12/25/23 troponin 6, chest x-ray with no acute cardiopulmonary findings, bilateral lower extremity plain tib-fib films with no acute osseous abnormalities, EKG with sinus rhythm with first-degree AV block with no acute evidence of ischemia. In the ED patient administered Lasix 40 mg IV x 1. 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 Myocardial infarct, old Abnormal nuclear stress test Shortness of breath PVD (peripheral vascular disease) Obesity (BMI 35.0-39.9 without comorbidity) Hypothyroidism Home Medications ?Medication ?Instructions ?Recorded ?Last Taken ?Type aspirin 81 mg chewable tablet 81 mg PO DAILY@0800 01/31/16 Unknown History carvedilol 6.25 mg tablet 6.25 mg PO BID 01/31/16 Unknown History levothyroxine 88 mcg tablet 88 mcg PO DAILY 01/31/16 Unknown History acetaminophen 650 mg 650 mg PO Q12H 03/09/21 Unknown History tablet,extended release (Tylenol Arthritis Pain) budesonide-formoterol HFA 160 2 puff inhalation BID PRN sob 06/10/21 Unknown History mcg-4.5 mcg/actuation aerosol inhaler (Symbicort) light mineral oil 1 %-mineral oil 1 drp ophthalmic (eye) PRN PRN dry 09/29/21 Unknown History 4.5 % eye drops (Soothe XP) eyes rivaroxaban 20 mg tablet (Xarelto) See Rx Instructions .Route 08/08/23 Unknown Rx .COMPLEX #90 tabs rosuvastatin 20 mg tablet 20 mg PO DAILY 08/17/23 Unknown History lisinopril 20 mg tablet 20 mg PO BID #180 tabs 09/20/23 Unknown Rx nitroglycerin 0.4 mg sublingual 0.4 mg sublingual Q5-15M PRN Chest 10/10/23 Unknown Rx tablet Pain #25 tabs calcium 600 mg (as 2 tab PO BID 01/08/24 Unknown History carbonate)-vitamin D3 20 mcg (800 unit) tablet (Caltrate with Vitamin D3) cetirizine 10 mg capsule (All Day 10 mg PO DAILY 01/08/24 Unknown History Allergy (cetirizine)) furosemide 40 mg tablet 40 mg PO DAILY 01/08/24 Unknown History metolazone 2.5 mg tablet 2.5 mg PO DAILY 01/08/24 Unknown History potassium chloride 20 mEq 20 meq PO DAILY 01/08/24 Unknown History tablet,extended release Allergy/AdvReac Type Severity Reaction Status Date / Time No Known Allergies Allergy Verified 01/08/24 16:27 Family History Father CAD (coronary artery disease) Colon cancer Hypertension Mother CAD (coronary artery disease) CVA (cerebral vascular accident) Brother CAD (coronary artery disease) Brother COPD (chronic obstructive pulmonary disease) Surgical History History of basal cell carcinoma excision History of cataract surgery History of neck surgery History of shoulder surgery History of right-sided carotid endarterectomy (~06/2012) History of cardiac radiofrequency ablation (~01/2015) S/P PTCA (percutaneous transluminal coronary angioplasty) (~01/11/11) Social History household members: spouse Smoking Status: Never smoker alcohol intake: never substance use type: does not use caffeine: No what type of physical activity do you participate in: none seatbelt use: always do you feel safe at home: Yes ROS ROS Narrative Admission Review of Systems: CONSTITUTIONAL: No weight loss, fever, chills, + weakness or fatigue. HEENT: Eyes: No visual loss, blurred vision, double vision or yellow sclerae. Ears, Nose, Throat: No hearing loss, sneezing, congestion, runny nose or sore throat. SKIN: No rash or itching, lesions except + bilateral lower extremity venous stasis skin changes, bilateral lower extremity stasis blister wounds, occasional staged ecchymoses, abrasion. CARDIOVASCULAR: + Orthopnea, edema. No chest pain, chest pressure or chest discomfort, palpitations, syncopal events. RESPIRATORY: + Dyspnea, worse with exertion. No marked cough or sputum, wheezing, hemoptysis. GASTROINTESTINAL: No anorexia, nausea, vomiting or diarrhea, abdominal pain, melena, BRBPR. GENITOURINARY: No dysuria, frequency, urgency or retention. NEUROLOGICAL: No headache, dizziness, syncope, paralysis, ataxia, numbness or tingling in the extremities, focal weakness, change in bowel or bladder control, seizure. MUSCULOSKELETAL: + muscle, back pain, joint pain or stiffness. HEMATOLOGIC: No anemia. + Easy bleeding/bruising. LYMPHATICS: No enlarged nodes. No history of splenectomy. PSYCHIATRIC: No history of depression or anxiety. ENDOCRINOLOGIC: No reports of sweating, cold or heat intolerance. No polyuria or polydipsia. ALLERGIES: + History of asthma, allergic rhinitis. Vital Signs Vital Signs Vital Signs: 01/08/24 16:28 01/08/24 19:24 01/08/24 19:25 Temperature 97.3 F L 97 F L Temperature Source Temporal Oral Pulse Rate 70 65 Respiratory Rate 18 18 Respiratory Effort Normal Respiratory Pattern Normal Blood Pressure 150/64 H 172/85 H Blood Pressure Mean 92 114 Pulse Ox 97 100 Oxygen Delivery Method Room Air Room Air 01/08/24 20:15 01/08/24 21:06 01/08/24 22:00 Temperature 98.2 F Temperature Source Oral Pulse Rate 57 L 57 L 55 L Respiratory Rate 17 15 18 Respiratory Effort Respiratory Pattern Blood Pressure 123/66 H 118/62 133/62 H Blood Pressure Mean 85 80 85 Pulse Ox 98 98 97 Oxygen Delivery Method Room Air Room Air Room Air 01/08/24 22:35 Temperature 98.3 F Temperature Source Pulse Rate 58 L Respiratory Rate 18 Respiratory Effort Respiratory Pattern Blood Pressure 133/60 H Blood Pressure Mean 84 Pulse Ox 97 Oxygen Delivery Method Weight Weight: 233 lb 12.8 oz Body Mass Index (BMI) 36.6 Physical Exam Narrative Physical Examination: General: Awake, alert, oriented to self, place and recent events, does report he is underlying memory impairment and his ongoing dementia workup outpatient, remains cooperative, seated upright in the ED bed, fatigued, no acute distress. Skin: Normal color, normal turgor, no icterus, no cyanosis except for bilateral lower extremity venous stasis skin changes, 2 small open stasis blister wounds medially distal to bilateral lower extremity with no foul odor or periwound erythema noted. HEENT: AT/NC, EOMI, PERRLA, MMM, no carotid bruits, no obvious JVD however extremely thickened neck makes evaluation difficult. Lungs: Distant breath sounds, diminished, likely secondary to habitus, no evidence of any distress, appropriate respiratory rate, no rales, ronchi or wheezing. Heart: Mildly bradycardic with regular rhythm; no gallop, rub audible. Abdomen: Soft, obese, NTTP, ND, distant normal BS, no appreciated HSM. Extremities: No cyanosis, no clubbing, bilateral lower extremity pedal to knee 2-3+ pitting edema, see skin Neurological: Patient awake, alert, oriented as noted, cognitive function decreased baseline with underlying chronic memory impairment, currently baseline intact; pupils equally reactive to light and accommodation, cranial nerves grossly normal, moving all 4 extremities, no focal deficits, strength moderately to severely globally decreased Psychiatric: Affect appears fatigued, no acute evidence of depressive or anxiety feelings. Results Lab / Micro Data 01/08/24 19:30 01/08/24 19:30 Labs: Laboratory Results - last 24 hr 01/08/24 19:30: WBC 7.8, RBC 4.36 L, Hgb 13.2, Hct 40.0, MCV 91.7, MCH 30.3, MCHC 33.0, RDW Std Deviation 41.6, RDW Coeff of Rogelio 12.3, Plt Count 193, MPV 9.8, Immature Gran % (Auto) 0.400, Neut % (Auto) 61.0, Lymph % (Auto) 27.3, [place] % (Auto) 8.5, Eos % (Auto) 2.0, Baso % (Auto) 0.8, Absolute Neuts (auto) 4.8, Absolute Lymphs (auto) 2.13, Nucleated RBC % 0, Sodium 142, Potassium 4.6, C hloride 108 H, Carbon Dioxide 31.0, Anion Gap 3 L, BUN 29 H, Creatinine 1.35 H, Estim Creat Clear Calc 49.82, Est GFR (MDRD) Af Amer 65, Est GFR (MDRD) Non-Af 54 L, BUN/Creatinine Ratio 21.5 H, Glucose 103, Lactic Acid 1.4, Calcium 10.0, Troponin I High Sens 8, B-Natriuretic Peptide < 2.0 01/08/24 22:09: Troponin I High Sens 7 Imaging Radiology Impression Tibia/Fibula X-Ray 01/08/24 08:00 IMPRESSION: No acute osseous abnormality of the right tib-fib. Electronically Signed: Chip Tatum MD at 21:38 EDT , Tibia/Fibula X-Ray 01/08/24 19:50 IMPRESSION: No acute osseous abnormality of the left tib-fib. Electronically Signed: Chip Tatum MD at 21:03 EDT , Chest X-Ray 01/08/24 20:20 IMPRESSION: Chest with no acute disease. Electronically Signed: Chip Tatum MD at 21:27 EDT , Assessment & Plan Assessment/Plan (1) Edema: PLAN: Plan The patient is an 83 y/o M w/ PMHx: PAF, VINOD, HTN, HLD, PVD, CAD s/p PCI, Hypothyroidism, Carotid disease, recent cardiology evaluation 12/28/23 with in their note no dyspnea complaints and transient lower extremity swelling issues treated by primary care physician reportedly with review of scripts noting 12/17/23 prescription for Lasix 40 mg 1 p.o. daily with a 7-day supply administered at that time in addition to a similar metolazone 2.5 mg 1 tablet daily for 7-day duration as well who presents to the [facility] ED on 01/08/24 with history of progressively worsening bilateral lower extremity swelling up into his more proximal thighs with increasing fatigue and malaise as well as shortness of breath with associated stasis ulcer development on his lower extremities although this has been a chronic issue recently worsened given his increasing swelling outpatient recently placed on oral Lasix with some improvement however he has been off this for several days and now it is increasing again with worsening dyspnea prompting ED evaluation. #1. Dyspnea, worsening lower extremity swelling complicated by stasis ulcers w/ Acute Hypoxia (88% on RA with ambulation inthe ED) secondary to concern for Possible HF Exacerbation, Unclear type: Patient administered IV lasix in the ED, will admit to PCU, maintain on cardiac telemetry, obtain cardiac enzyme series, obtain serial EKGs, continue IV lasix diuresis, monitor I/Os, maintain on intake restriction, continue medical therapy w/ asa, statin, BB, ACEI, obtain TSH and magnesium level. Most recent ECHO noted 08/13/2019 echocardiogram with LV systolic function normal, EF 65%, trivial MVI, trivial TVI, trivial SANDRITA, transmitral diastolic flow was not velocity suggestive of diastolic dysfunction thus will request repeat. Will place snug JOSH wraps. #2. Worsening progressive memory impairment with concern for possible underlying dementia, unclear type and unclear behavioral disturbance history with ongoing workup outpatient: Complicates presentation, case management consulted, PT/OT also consulted for discharge planning, encourage continued outpatient follow-up and ongoing outpatient workup for memory impairment and dementia evaluation. #3. CAD: Status post inferior IN and PCI RCA 2010, will continue home Xarelto, statin, Coreg, lisinopril home regimen. #4. Chronic asthma with allergic rhinitis: Will temporally hold home inhaler in the interim transition to ATC budesonide therapy, PRN albuterol, HOB, IS parameters, continue patient home montelukast, cetirizine home regimen. #5. Hypothyroidism: We will continue patient on levothyroxine regimen, TSH requested. #6. PAF: Status post previous cardiac radiofrequency ablation, we will continue patient on Coreg and Xarelto home regimen. #7. Carotid disease: Most recent carotid duplex noted 09/16/21 with noted operative change right carotid bulb and proximal ICA with smooth plaque and less than 50% stenosis, less than 50% stenosis right external carotid artery, minimal irregular plaque proximal left ICA with less than 50% stenosis, less than 50% stenosis left external carotid artery, patent and antegrade vertebral arteries bilaterally. Will continue patient home Xarelto, statin, hypertensive regimen as noted. #8. Hypertension: Continue home regimen including lisinopril, Coreg, IV Lasix, PRN hydralazine. #9. Hyperlipidemia: We will continue patient on statin therapy, FLP in AM. #10. PVD with chronic stasis ulcers complicated by worsening lower extremity swelling as noted above #1: Will place neck Josh wraps with elevation and continue treatment as noted above #1. Of note LISA/PVR BL LE noted 08/07/22 with right PT and DP LISA at rest 1.22 and 1.36 with normal triphasic Doppler waveform, right digital brachial index 0.96 normal range, exercise right LISA resting 1.362 immediately after exercise 1.39 noted to be normal, left lower extremity resting PT and DPA LISA at rest normal at 1.27 and 1.32 with normal triphasic Doppler waveform, left digital brachial index 0.81 noted to be normal, left LISA goes from resting 1.3-2 immediately after exercise at 1.28 also noted to be normal range. Wound RN consulted. #11. Obesity: Weight loss and lifestyle changes encouraged. #12. VINOD: CPAP nightly. #13. DVT prophylaxis: Will continue patient home Xarelto regimen. #14. CODE status: Patient HCPOA is his who is present and living will is currently in place. Discussed CODE status at length including difference between FULL code, DNR-CCA and DNR-CC status. Following discussions about the differences in these status, requested DNR-CCA, no intubation status. Advanced Care Planning Face to Face Time: 16 minutes. Charges/Coding Visit Charges Inpatient E&M: 52774 Init Hosp L3 Procedures Hospitalists Procedures: 02174 Advncd Care Plan 30 Min
[2024-01-08] MEDS: Furosemide 40 MG/4 ML Vial IV (23:05)
[2024-01-08 23:07] LABS: Magnesium 1.9 mg/dL (1.6-2.6)
--- NOTE | 2024-01-08 23:40 | ECHOCS_ITS ---
Reason For Study: CHF Procedure This was a 2D Doppler, Color Flow transthoracic echocardiogram. The study was technically difficult. Contrast injection was performed. Exam performed portable in patient room. Left Ventricle Normal LV size. The estimated ejection fraction is 65 %. No evidence for diastolic dysfunction. No regional wall motion abnormalities noted. Right Ventricle Normal RV size. Normal systolic function. Atria The left and right atria are normal. No doppler evidence for ASD. Mitral Valve There is no mitral valve stenosis. No mitral valve insufficiency. Tricuspid Valve There is no tricuspid stenosis. Unable to estimate RV systolic pressure due to inadequate jet, pulmonary artery pressure probably normal. Aortic Valve Trisinus/trileaflet aortic valve. There is no aortic stenosis. Trivial aortic valve insufficiency. Pulmonic Valve There is no pulmonic valvular stenosis. No pulmonic valve insufficiency. Great Vessels Normal aortic root. Pericardium/Pleural No pericardial effusion. Medication Diluted definity 3ml given slow IV push to enhance endocardial definition. MMode/2D Measurements & Calculations LVIDd: 4.4 cm IVSd: 1.2 cm Ao root diam: 4.0 cm LVIDs: 2.3 cm LVPWd: 1.1 cm FS: 47.5 % LAV(MOD-bp): 56.8 ml Ao sinus diam: 3.[address] [place]: 3.2 cm LAV(MOD-bp) Indexed: 26.6 ml/m2 LAV(MOD-sp2): 62.7 ml LAV(MOD-sp4): 50.4 ml LA dimension(2D): 3.7 cm LA A4 area: 18.3 cm2 Time Measurements MV dec time: 0.25 sec Doppler Measurements & Calculations MV E max juan: 87.3 cm/sec Lat Peak E' Juan: 7.9 cm/sec Med Peak E' Juan: 8.9 cm/sec MV A max juan: 29.7 cm/sec E/E' lat: 11.1 E/E' med: 9.8 MV E/A: 2.9 MV V2 max: 88.3 cm/sec MV P1/2t max juan: 89.8 cm/sec Ao V2 max: 101.5 cm/sec MV max P.1 mmHg MV P1/2t: 78.5 msec Ao max P.1 mmHg MV V2 mean: 40.2 cm/sec MV dec slope: 334.9 cm/sec2 Ao V2 mean: 73.1 cm/sec MV mean P.83 mmHg Ao mean P.3 mmHg MV V2 VTI: 24.2 cm MVA(P1/2t): 2.8 cm2 Ao V2 VTI: 21.1 cm AV (velocity ratio): 0.99 LV V1 max: 94.3 cm/sec PA V2 max: 96.1 cm/sec LV V1 max P.6 mmHg PA V2 mean: 64.7 cm/sec LV V1 mean P.8 mmHg LV V1 mean: 61.0 cm/sec LV V1 VTI: 20.8 cm ECHO/Echo Complete W/ Contrast Interpretation Summary The estimated ejection fraction is 65 %. No evidence for diastolic dysfunction. Trivial aortic valve insufficiency. Ordering Physician: Lashonda Castillo Performed By: Mustapha Goodwin RCS
[2024-01-09] VITALS (7 sets, daily range): BP systolic 127–153; BP diastolic 64–73; PULSE 60–67; RESP 14–20; TEMP 36.3–36.6; O2SAT 90–98; BMI 33.5
[2024-01-09] MEDS: 0.9% Saline Lock 10 ML Syringe IV ×4 (00:07→20:46)
[2024-01-09 02:21] LABS: Troponin-I HS 8 pg/mL (3.0-78.0)
[2024-01-09] MEDS: Levothyroxine 88 MCG Tablet PO (05:43)
[2024-01-09 06:12] LABS: Absolute Lymphocyte Count 1.99 X10^3/uL (0.83-4.51); Absolute Neutrophil Count 5.2 X10^3/uL (2.0-7.7); Basophil# 0.05 X10^3/uL; Basophil% 0.6 % (0-1); Eosinophil# 0.13 X10^3/uL; Eosinophils% 1.6 % (0-5); Hematocrit 37.6 % (40-54); Lymphocyte # 1.99 X10^3/ul (0.83-4.51); Lymphocyte % 24.7 % (19-41); Mean Corp Hgb Conc 34.6 g/dL (32-36); Mean Corpuscular Hgb 31.4 pg (27.0-32.0); Mean Corpuscular Volume 90.8 fL (80-94); Mean Platelet Vol. 9.7 fl (6.2-12.0); Monocyte# 0.67 X10^3/uL; Monocyte% 8.3 % (0-10); NRBC Flagged by Analyzer 0 % (0-5); Neutrophil # 5.18 X10^3/uL (2.7-7.7); Neutrophil % 64.4 % (47-70); Platelet Count 180 K/mm3 (150-450); RBC Distribution Width CV 12.2 % (11.6-14.6); RBC Distribution Width SD 40.6 fl (35.1-43.9); Red Blood Count 4.14 M/mm3 (4.6-6.2); White Blood Count 8.1 K/mm3 (4.4-11.0)
[2024-01-09 06:45] LABS: ALB/GLOB Ratio 1.1 RATIO (0.9-2.4); AST(SGOT) 20 U/L (15-37); Alanine Aminotransfer ALT/SGPT 37 U/L (16-61); Albumin, Serum 3.1 g/dL (3.2-5.0); Alkaline Phosphatase 95 U/L (45-117); Anion Gap 5 (5-15); BUN 25 mg/dL (7-18); BUN/Creat Ratio 19.8 RATIO (10-20); Calcium,Total 9.5 mg/dL (8.5-10.1); Chloride 106 mmol/L (98-107); Cholesterol 121 mg/dL (200); Creatinine, Serum 1.26 mg/dL (0.70-1.30); EST Glomerular Filtration Rate 58 mL/min (>60); Est Glom Filt Rate - Afr Amer 71 mL/min (>60); Estimated Creatinine Clearance 51.05 ml/min; Globulin 2.8 g/dL (2.2-4.2); Glucose 97 mg/dL (74-106); High Density Lipoprotein 54 mg/dL; Potassium 3.9 mmol/L (3.5-5.1); Protein, Total 5.9 g/dL (6.4-8.2); Sodium Level 141 mmol/L (136-145); Triglycerides 87 mg/dL; Very Low Density Lipoprotein 17 mg/dL (5-40)
[2024-01-09] MEDS: Budesonide Respules 0.5 MG/2 ML AMPUL.NEB. INHALATION ×2 (07:13→19:02)
--- NOTE | 2024-01-09 08:01 | PCM.PN.HOSP ---
Reason for Visit Reason for Visit: Diagnoses Edema, unspecified (01/08/24) Objective Data Objective Data Vital Signs: Vital Signs Temp Pulse Resp BP Pulse Ox O2 Del Method 97.4 F L 62 16 147/66 H 97 Room Air 01/09/24 03:29 01/09/24 03:29 01/09/24 03:29 01/09/24 03:29 01/09/24 03:29 01/09/24 03:54 Oxygen Delivery Method Room Air Weight: 214 lb 1.102 oz Body Mass Index (BMI) 33.5 Lab / Micro Data 01/09/24 05:36 01/09/24 05:36 Labs: Laboratory Results - last 24 hr 01/08/24 19:30: WBC 7.8, RBC 4.36 L, Hgb 13.2, Hct 40.0, MCV 91.7, MCH 30.3, MCHC 33.0, RDW Std Deviation 41.6, RDW Coeff of Rogelio 12.3, Plt Count 193, MPV 9.8, Immature Gran % (Auto) 0.400, Neut % (Auto) 61.0, Lymph % (Auto) 27.3, Brule % (Auto) 8.5, Eos % (Auto) 2.0, Baso % (Auto) 0.8, Absolute Neuts (auto) 4.8, Absolute Lymphs (auto) 2.13, Nucleated RBC % 0, Sodium 142, Potassium 4.6, Chloride 108 H, Carbon Dioxide 31.0, Anion Gap 3 L, BUN 29 H, Creatinine 1.35 H, Estim Creat Clear Calc 49.82, Est GFR (MDRD) Af Amer 65, Est GFR (MDRD) Non-Af 54 L, BUN/Creatinine Ratio 21.5 H, Glucose 103, Lactic Acid 1.4, Calcium 10.0, Troponin I High Sens 8, B-Natriuretic Peptide < 2.0 01/08/24 22:09: Magnesium 1.9, Troponin I High Sens 7 01/09/24 01:40: Troponin I High Sens 8 01/09/24 05:36: WBC 8.1, RBC 4.14 L, Hgb 13.0, Hct 37.6 L, MCV 90.8, MCH 31.4, MCHC 34.6, RDW Std Deviation 40.6, RDW Coeff of Rogelio 12.2, Plt Count 180, MPV 9.7, Immature Gran % (Auto) 0.400, Neut % (Auto) 64.4, Lymph % (Auto) 24.7, Brule % (Auto) 8.3, Eos % (Auto) 1.6, Baso % (Auto) 0.6, Absolute Neuts (auto) 5.2, Absolute Lymphs (auto) 1.99, Nucleated RBC % 0, Sodium 141, Potassium 3.9, Chloride 106, Carbon Dioxide 30.0, Anion Gap 5, BUN 25 H, Creatinine 1.26, Estim Creat Clear Calc 51.05, Est GFR (MDRD) Af Amer 71, Est GFR (MDRD) Non-Af 58 L, BUN/Creatinine Ratio 19.8, Glucose 97, Calcium 9.5, Total Bilirubin 0.50, AST 20, ALT 37, Alkaline Phosphatase 95, Total Protein 5.9 L, Albumin 3.1 L, Globulin 2.8, Albumin/Globulin Ratio 1.1, Triglycerides 87, Cholesterol 121, LDL Cholesterol 50, VLDL Cholesterol 17, HDL Cholesterol 54, TSH 1.570 Radiography Diagnostic Testing: Radiology Impression Tibia/Fibula X-Ray 01/08/24 08:00 IMPRESSION: No acute osseous abnormality of the right tib-fib. Electronically Signed: Chip Tatum MD at 21:38 EDT , Tibia/Fibula X-Ray 01/08/24 19:50 IMPRESSION: No acute osseous abnormality of the left tib-fib. Electronically Signed: Chip Tatum MD at 21:03 EDT , Chest X-Ray 01/08/24 20:20 IMPRESSION: Chest with no acute disease. Electronically Signed: Chip Tatum MD at 21:27 EDT , Physical Exam Narrative Seen and examined Patient came to ED for progressive worsening of leg swelling/edema and shortness of breath. Leg swelling and shortness of breath has improved since admission Physical exam General: Alert, Oriented x3, Cooperative. Obesity grade 1 BMI 33.5 kg prescribed HEENT: Atraumatic, PERRLA, EOMI, Normocephalic Oral: No Gingival or Mucosal Lesions/ Ulcerations Neck: Supple, No JVD, Negative Carotid Bruits Chest wall/Lungs: Air entry diminished in bilateral lung bases. No crepitation/rhonchi Cardiovascular: Regular rate, Regular Rhythm, Normal S1, Normal S2, No M/G/R Abdomen: Bowel Sounds Present, Soft, Non Tender, Non-Distended : No dysuria. No renal angle tenderness. No suprapubic tenderness. Extremities: Bilateral below-knee edema, Capillary Refill Less than 3 Seconds Skin: Ulcer over both legs. On dorsum of feet and lower legs Musculoskeletal: No Tenderness to Palpation of Joints or Extremities. ROM restricted at knees. Neurological: Cranial nerves II-XII grossly intact, DTR 2+/4. No acute focal neurological deficit. Psych/Mental Status: Flat affect. Assessment & Plan Assessment/Plan (1) Edema: PLAN: Plan The patient is an 83 y/o M came to ED with increased edema bilateral lower extremities up to thigh level, mild SOB along with wounds/ulcers to both legs. #1. Dyspnea on exertion, hypoxia on exertion secondary to concern for Possible HF Exacerbation, Unclear type: Patient was given IV Lasix in ED. Last echo 08/12/2021 shows EF 65% trivial MR, trivial TR, trivial AI diastolic dysfunction. Repeat echo ordered. On goal-directed heart failure treatment. Heart failure core measures including intake and output, fluid restriction less than 1500 mL, daily weight monitoring, kidney and electrolytes monitoring. Patient was not hypoxic or tachypneic at rest since triage in ED. Although BP was elevated in triage but normal now. #2. Advanced dementia, unclear type: His takes care of him. MRI brain in November 2023 shows involutional changes in the brain with no recent intracranial ischemia. She states he does not remember well #3. CAD: Status post inferior IA and PCI RCA 2010: Continue home Xarelto, statin, Coreg, lisinopril home regimen. Dry chronic cough probably due to lisinopril #4. Chronic asthma with allergic rhinitis: No acute URI symptoms or pneumonia like symptoms. Continue baseline inhalers. #5. Hypothyroidism: on levothyroxine regimen, TSH requested. #6. PAF: Status post previous cardiac radiofrequency ablation in [facility], [facility]. Continue patient on Coreg and Xarelto home regimen. #7. Carotid disease: Carotid duplex in September 2021 shows mild smooth plaque less than 50% bilaterally in ICA and ECA. Continue Xarelto, statin, hypertensive regimen as noted. #8. Hypertension: Continue home regimen including lisinopril, Coreg, IV Lasix, PRN hydralazine. #9. Hyperlipidemia: We will continue patient on statin therapy, #10. Mild small chronic PE with chronic stasis ulcers complicated by worsening lower extremity swelling: LISA/PVR on 08/07/2022 reported normal. Right PT and DP 1.22 -1.36 respectively. Left PT and DP between 1.27 and 1.32. Bilateral normal triphasic waveform. Wound RN consulted. #11. Obesity: Weight loss and lifestyle changes encouraged. #12. VINOD: CPAP nightly. #13. DVT prophylaxis: Will continue patient home Xarelto regimen. #14. CODE status: Patient BLOSSOM is his who is present and living will is currently in place. Discussed CODE status at length including difference between FULL code, DNR-CCA and DNR-CC status. Following discussions about the differences in these status, requested DNR-CCA, no intubation status. Charges/Coding Visit Charges Inpatient E&M: 43356 Subs Hosp L2
[2024-01-09] MEDS: Aspirin 81 MG TAB.CHEW PO (09:49)
[2024-01-09] MEDS: Lisinopril 20 MG Tablet PO ×2 (09:49→20:46)
[2024-01-09] MEDS: Carvedilol 6.25 MG Tablet PO ×2 (09:49→16:45)
[2024-01-09] MEDS: Potassium Chloride Oral Tablet 20 MEQ PO (09:49)
[2024-01-09] MEDS: Loratadine 10 MG Tablet PO (09:49)
[2024-01-09] MEDS: Furosemide 40 MG/4 ML Vial IV ×2 (09:50→16:46)
--- NOTE | 2024-01-09 10:30 | WOUNDNOTE ---
wound photo: left lower leg
--- NOTE | 2024-01-09 10:30 | WOUNDNOTE ---
wound photo: right lower leg
--- NOTE | 2024-01-09 10:31 | CASEMGMT ---
CARMEN ONTIVEROS Assessment: Face to Face with pt for initial transition planning/care coordination assessment. CARMEN ONTIVEROS introduced self and role at [facility], pt voices understanding and consents to assessment. Pt is A&O x4 and answers all questions appropriately at this time. Pt sitting up in chair in no distress. Care providers, pharmacy, and demographics verified/updated. Strata: 2 Admitting Dx: CHF Exacerbation PCP: Erasto Specialists: Agustín, Cariologist; Powre, Pulmonoligist; Edison, Auto Accessories Installer. Preferred Pharmacy: [facility] Insurance: MCR, [employer] Prescription Benefit: yes LNOK: , Susan. Living Arrangements: Pt lives with in a 1 story home with 2 steps and handrails to enter ADLs: Pt states I with ADLs and IADLs. Transportation: Pt states has dementia, recently stopped driving himself. provides transportation. DME: Cpap. HHC/SNF: Denies Hx of. Pt states no concerns with going home at time of dc, states she is not confident with wound care. Discussed SN HHC option, and will discuss, CARMEN ONTIVEROS to follow up. Pt states no further concerns/needs. CM to follow. Advised pt to ask CM if any further question/concerns/needs arise, voices understanding. Pt Goal: Home Plan: Home, follow up to determine if pt would like SN HHC services. Ilir MORALES CM
[2024-01-09] MEDS: Rivaroxaban 20 MG Tablet PO (16:45)
[2024-01-09] MEDS: Atorvastatin Calcium 40 MG Tablet PO (20:46)
[2024-01-10 03:35] VITALS: BP 106/85; PULSE 55; RESP 18; TEMP 36.7; O2SAT 99
[2024-01-10 04:53] VITALS: BMI 35.5
[2024-01-10] MEDS: Levothyroxine 88 MCG Tablet PO (05:55)
[2024-01-10 06:28] LABS: Absolute Lymphocyte Count 1.93 X10^3/uL (0.83-4.51); Absolute Neutrophil Count 4.5 X10^3/uL (2.0-7.7); Basophil# 0.04 X10^3/uL; Basophil% 0.5 % (0-1); Eosinophil# 0.14 X10^3/uL; Eosinophils% 1.9 % (0-5); Hematocrit 37.7 % (40-54); Hemoglobin 12.5 g/dL (13.0-16.5); Lymphocyte # 1.93 X10^3/ul (0.83-4.51); Mean Corp Hgb Conc 33.2 g/dL (32-36); Mean Corpuscular Hgb 30.3 pg (27.0-32.0); Mean Corpuscular Volume 91.3 fL (80-94); Mean Platelet Vol. 10.1 fl (6.2-12.0); Monocyte# 0.73 X10^3/uL; Monocyte% 9.9 % (0-10); NRBC Flagged by Analyzer 0 % (0-5); Neutrophil # 4.54 X10^3/uL (2.7-7.7); Neutrophil % 61.3 % (47-70); Platelet Count 177 K/mm3 (150-450); RBC Distribution Width CV 12.4 % (11.6-14.6); RBC Distribution Width SD 40.9 fl (35.1-43.9); Red Blood Count 4.13 M/mm3 (4.6-6.2); White Blood Count 7.4 K/mm3 (4.4-11.0)
[2024-01-10] MEDS: Budesonide Respules 0.5 MG/2 ML AMPUL.NEB. INHALATION (06:54)
[2024-01-10 06:55] VITALS: PULSE 73; RESP 18; O2SAT 97
[2024-01-10 07:02] LABS: Anion Gap 5 (5-15); BUN 28 mg/dL (7-18); BUN/Creat Ratio 20.7 RATIO (10-20); Calcium,Total 9.8 mg/dL (8.5-10.1); Chloride 104 mmol/L (98-107); Creatinine, Serum 1.35 mg/dL (0.70-1.30); EST Glomerular Filtration Rate 54 mL/min (>60); Est Glom Filt Rate - Afr Amer 65 mL/min (>60); Estimated Creatinine Clearance 49.08 ml/min; Glucose 108 mg/dL (74-106); Potassium 3.7 mmol/L (3.5-5.1); Sodium Level 142 mmol/L (136-145)
[2024-01-10 08:20] VITALS: BP 136/57; PULSE 57; RESP 18; TEMP 36.5; O2SAT 98
[2024-01-10] MEDS: Potassium Chloride Oral Tablet 20 MEQ PO (08:21)
[2024-01-10] MEDS: Carvedilol 6.25 MG Tablet PO (08:21)
[2024-01-10] MEDS: Loratadine 10 MG Tablet PO (08:21)
[2024-01-10] MEDS: Lisinopril 20 MG Tablet PO (08:21)
[2024-01-10] MEDS: Aspirin 81 MG TAB.CHEW PO (08:21)
[2024-01-10 09:45] VITALS: BP 116/58; PULSE 65; RESP 18; TEMP 36.5; O2SAT 98
[2024-01-10] MEDS: 0.9% Saline Lock 10 ML Syringe IV (09:46)
[2024-01-10] MEDS: Furosemide 40 MG/4 ML Vial IV (09:48)
--- NOTE | 2024-01-10 11:09 | DCINST_ITS ---
Discharge Instructions Diet Discharge Diet: No restrictions Activity Discharge Activity: Return to Normal Activity Weight Bearing Status: Weight bearing as tolerated Dressing / Incision Call your doctor if you observe: Fever of 101 or Higher, Coldness, Increased Pain, Numbness or Tingling, Change in Color, Inability to urinate, Inability to have a bowel movement, Shortness of breath, Dizziness, Fainting spells, Swelling in the ankles, Chest pain, Prolonged hiccupping, Increased palpitations (irregular heartbeat) and Calf discomfort Follow Up Care When: IN 2 WEEKS Test Results: Test results from this visit will be discussed in further detail at your follow- up appointment, if applicable. Discharge Plan Admission Admit Date/Time: 01/08/24 22:49 Primary Reason for Your Visit: Heart failure exacerbation Attending Provider: Matt Pina Primary Care Provider: Fidel Maurer Consulting Providers: Lashonda Castillo Instructions Additional Instructions / Restrictions: Advised thigh-high ALLEN hose while awake. Incentive spirometry for 1 week. CPAP to use at night during asleep Discharge Orders/Prescriptions Prescriptions: New sennosides-docusate sodium [Stimulant Laxative Plus] 8.6-50 mg Tablet 2 tab PO BID PRN PRN (Reason: Constipation) Qty: 0 0RF Rx Instructions: [id number] Continued acetaminophen [Tylenol Arthritis Pain] 650 mg tablet extended release 650 mg PO Q12H budesonide-formoterol [Symbicort] 160-4.5 mcg/actuation HFA aerosol inhaler 2 puff INHALATION BID PRN (Reason: sob) Soothe XP 1-4.5 % drops 1 drp ophthalmic (eye) PRN PRN (Reason: dry eyes) rosuvastatin 20 mg tablet 20 mg PO DAILY carvedilol 6.25 MG tablet 6.25 mg PO BID levothyroxine 88 MCG tablet 88 mcg PO DAILY aspirin 81 MG tablet,chewable 81 mg PO DAILY@0800 All Day Allergy (cetirizine) 10 mg capsule 10 mg PO DAILY calcium carbonate-vitamin D3 [Caltrate with Vitamin D3] 600 mg-20 mcg (800 unit) tablet 2 tab PO BID metolazone 2.5 mg tablet 2.5 mg PO DAILY potassium chloride 20 mEq tablet extended release 20 meq PO DAILY lisinopril 20 mg tablet 20 mg PO BID Qty: 180 3RF Rx Instructions: Hold for SBP less than 130 mmHg Xarelto 20 mg tablet See Rx Instructions .ROUTE .COMPLEX Qty: 90 3RF Dose Instruction: TAKE 1 TABLET BY MOUTH EVERY DAY Rx Instructions: TAKE 1 TABLET BY MOUTH EVERY DAY nitroglycerin 0.4 mg tablet, sublingual 0.4 mg SUBLINGUAL Q5-15M PRN (Reason: Chest Pain) Qty: 25 1RF Changed furosemide 40 mg tablet 40 mg PO BIDCM 30 Days Qty: 60 2RF Referrals / Follow Up: Fidel Maurer DO [Primary Care Provider] - Anita Boone PA [Med Staff - Adv Practice Prof] - Within 2 Weeks (For heart failure exacerbation on furosemide and metolazone) Disposition Disposition (needs filled in before D/C Order can be placed): Home, Self Care
--- NOTE | 2024-01-10 13:03 | CASEMGMT ---
CARMEN ONTIVEROS NOTE: Discharge order is in. Per Chel, wound nurse, she has spoken w/ today and reviewed/discussed dressing changes and she is comfortable w/doing them @ home. Pt/ to be provided w/adaptic in pt's room to take home @ dc and per Chel, there will be enough adaptic enough until the wound is healed. CARMEN ONTIVEROS to room. Pt up in room, ad chelo, steady gait. in room. Introduced self and role. denies need for HHC and also aware, since pt is not homebound, insurance would not cover for HHC. confirms she is comfortable w/doing the wound care/dsg changes daily now that she is aware the compression stockings can be used to keep the dressing in place, stating her concerns was w/being able to do the wraps. Pt and deny having other discharge needs/concerns. CARMEN Koenig, aware to send adaptic and other wound care supplies in pt's room, home w/pt/. Jarrell MAYERN CARMEN ONTIVEROS
--- NOTE | 2024-01-10 13:05 | DS.PCM_ITS ---
Providers Date of Admission: 01/08/24 Date of Discharge: 01/10/24 Primary Care Physician: Dr. Fidel Maurer, DO Consultations 01/09/24 02:25 Consult: Onc/Wound/box shook patcher Routine Comment: Comments:: for draining lower extermity sites per order Reason For Visit: ? HF EXACERBATION Diagnosis Discharge Diagnosis (1) Edema: Status: Acute Code(s): R60.9 - Edema, unspecified Plan The patient is an 83 y/o M came to ED with increased edema bilateral lower extremities up to thigh level, mild SOB along with wounds/ulcers to both legs. #1. Dyspnea on exertion, hypoxia on exertion secondary to concern for Possible HF Exacerbation, acute on chronic HFpEF: Patient was given IV Lasix in ED. Last echo 08/12/2021 shows EF 65% trivial MR, trivial TR, trivial AI diastolic dysfunction. Chest x-ray reported no acute abnormality. Repeat echo ordered. On goal-directed heart failure treatment. Heart failure core measures including intake and output, fluid restriction less than 1500 mL, daily weight monitoring, kidney and electrolytes monitoring. Patient was not hypoxic or tachypneic at rest since triage in ED. Although BP was elevated in triage but normal now. 01/10/2024: Leg swelling has much improved. 2D echo reviewed with the patient and his . EF 65% trivial AI. It is suggestive of HFpEF. Patient blood pressure has been on lower side 106/85 at 3:30 AM therefore lisinopril dose decreased from 20 mg twice daily to 20 mg every afternoon. Furosemide home dose increased to 40 mg p.o. twice daily. Already on metolazone continued. Follow-up in cardiology office with Anita Boone in 2 weeks. BMP in 1 week. #2. Advanced dementia, unclear type: His takes care of him. MRI brain in November 2023 shows involutional changes in the brain with no recent intracranial ischemia. She states he does not remember well 01/09: Advised follow-up with the neurology referred from PCP Dr. Maurer. #3. CAD: Status post inferior VT and PCI RCA 2010: Continue home Xarelto, statin, Coreg, lisinopril home regimen. Dry chronic cough probably due to lisinopril #4. Chronic asthma with allergic rhinitis: No acute URI symptoms or pneumonia like symptoms. Continue baseline inhalers. #5. Hypothyroidism: on levothyroxine regimen, TSH requested. #6. PAF: Status post previous cardiac radiofrequency ablation in [facility], [facility]. Continue patient on Coreg and Xarelto home regimen. 01/09: Heart rate is controlled. #7. Carotid disease: Carotid duplex in September 2021 shows mild smooth plaque less than 50% bilaterally in ICA and ECA. Continue Xarelto, statin, hypertensive regimen as noted. #8. Hypertension: Continue home regimen including lisinopril, Coreg, IV Lasix, PRN hydralazine. #9. Hyperlipidemia: We will continue patient on statin therapy, #10. Mild small chronic PE complicated by worsening lower extremity swelling with bilateral venous ulcer: LISA/PVR on 08/07/2022 reported normal. Right PT and DP 1.22 -1.36 respectively. Left PT and DP between 1.27 and 1.32. Bilateral normal triphasic waveform. Wound RN was consulted. #11. Obesity: Weight loss and lifestyle changes encouraged. #12. VINOD: CPAP nightly. #13. DVT prophylaxis: continue patient home Xarelto regimen. #14. CODE status: Patient BLOSSOM is his who is present and living will is currently in place. Discussed CODE status at length including difference between FULL code, DNR-CCA and DNR-CC status. Following discussions about the differences in these status, requested DNR-CCA, no intubation status. Discharge medication reconciliation done. Discharge follow-up instructions completed. Discharge process discussed with the patient and all questions were answered to patient's satisfaction. Follow with PCP in 1 to 2 weeks Total time spent, exact 35 minutes on discharge meds reconciliation, examination, coordination of care with nurses and ancillary staff, review of imaging and blood test and discussion with the patient on follow-up instructions. Medications at Discharge Home Medications aspirin 81 mg chewable tablet 81 mg PO DAILY@0800 01/31/16 carvedilol 6.25 mg tablet 6.25 mg PO BID 01/31/16 levothyroxine 88 mcg tablet 88 mcg PO DAILY 01/31/16 acetaminophen 650 mg tablet,extended release (Tylenol Arthritis Pain) 650 mg PO Q12H 03/09/21 budesonide-formoterol HFA 160 mcg-4.5 mcg/actuation aerosol inhaler (Symbicort) 2 puff inhalation BID PRN sob 06/10/21 light mineral oil 1 %-mineral oil 4.5 % eye drops (Soothe XP) 1 drp ophthalmic (eye) PRN PRN dry eyes 09/29/21 rivaroxaban 20 mg tablet (Xarelto) See Rx Instructions .Route .COMPLEX #90 tabs 08/08/23 rosuvastatin 20 mg tablet 20 mg PO DAILY 08/17/23 nitroglycerin 0.4 mg sublingual tablet 0.4 mg sublingual Q5-15M PRN Chest Pain #25 tabs 10/10/23 calcium 600 mg (as carbonate)-vitamin D3 20 mcg (800 unit) tablet (Caltrate with Vitamin D3) 2 tab PO BID 01/08/24 cetirizine 10 mg capsule (All Day Allergy (cetirizine)) 10 mg PO DAILY 01/08/24 metolazone 2.5 mg tablet 2.5 mg PO DAILY 01/08/24 potassium chloride 20 mEq tablet,extended release 20 meq PO DAILY 01/08/24 furosemide 40 mg tablet 40 mg PO BIDCM 30 days #60 tabs 01/10/24 lisinopril 20 mg tablet 20 mg PO QPM #180 tabs 01/10/24 sennosides 8.6 mg-docusate sodium 50 mg tablet (Stimulant Laxative Plus) 2 tab PO BID PRN PRN Constipation #0 tabs 01/10/24 Physical Exam Narrative Seen and examined Patient came to ED for progressive worsening of leg swelling/edema and shortness of breath. Leg swelling and shortness of breath has improved since admission Physical exam General: Alert, Oriented x3, Cooperative. Obesity grade 1. BMI 33.5 kg prescribed HEENT: Atraumatic, PERRLA, EOMI, Normocephalic Oral: No Gingival or Mucosal Lesions/ Ulcerations Neck: Supple, No JVD, Negative Carotid Bruits Chest wall/Lungs: Air entry diminished in bilateral lung bases. No crepitation/rhonchi Cardiovascular: Regular rate, Regular Rhythm, Normal S1, Normal S2, No M/G/R Abdomen: Bowel Sounds Present, Soft, Non Tender, Non-Distended : No dysuria. No renal angle tenderness. No suprapubic tenderness. Extremities: Bilateral ankle edema, much improved. Capillary Refill Less than 3 Seconds Skin: Ulcer over both legs. On dorsum of feet and lower legs Musculoskeletal: No Tenderness to Palpation of Joints or Extremities. ROM restricted at knees. Neurological: Cranial nerves II-XII grossly intact, DTR 2+/4. No acute focal neurological deficit. Psych/Mental Status: Flat affect. Weight / BMI Weight Weight: 227 lb 1.218 oz Body Mass Index (BMI) 35.5 ABG / Lab / Microbiology Data 01/10/24 05:14 01/10/24 05:14 Laboratory: Laboratory Results - last 24 hr 01/10/24 05:14: WBC 7.4, RBC 4.13 L, Hgb 12.5 L, Hct 37.7 L, MCV 91.3, MCH 30.3, MCHC 33.2, RDW Std Deviation 40.9, RDW Coeff of Rogelio 12.4, Plt Count 177, MPV 10.1, Immature Gran % (Auto) 0.400, Neut % (Auto) 61.3, Lymph % (Auto) 26.0, Sebastian % (Auto) 9.9, Eos % (Auto) 1.9, Baso % (Auto) 0.5, Absolute Neuts (auto) 4.5, Absolute Lymphs (auto) 1.93, Nucleated RBC % 0, Sodium 142, Potassium 3.7, Chloride 104, Carbon Dioxide 33.0 H, Anion Gap 5, BUN 28 H, Creatinine 1.35 H, Estim Creat Clear Calc 49.08, Est GFR (MDRD) Af Amer 65, Est GFR (MDRD) Non-Af 54 L, BUN/Creatinine Ratio 20.7 H, Glucose 108 H, Calcium 9.8 Radiography Diagnostic Testing: Radiology Impression Echocardiogram 01/08/24 23:40 Interpretation Summary The estimated ejection fraction is 65 %. No evidence for diastolic dysfunction. Trivial aortic valve insufficiency. Ordering Physician: Lashonda Castillo Performed By: Mustapha Goodwin RCS D/C Instructions Discharge Diet: No restrictions Weight Bearing Status: Weight bearing as tolerated Call your doctor if you observe: Fever of 101 or Higher, Coldness, Increased Pain, Numbness or Tingling, Change in Color, Inability to urinate, Inability to have a bowel movement, Shortness of breath, Dizziness, Fainting spells, Swelling in the ankles, Chest pain, Prolonged hiccupping, Increased palpitations (irregular heartbeat) and Calf discomfort When: IN 2 WEEKS Meaningful Use Info Meaningful Use Meaningful Use Diagnoses (Choose all that apply): None applicable and CHF CHF VENKAT/ARB ordered at discharge?: Yes Documented LVEF (%): 65 Ischemic Stroke Statin Dosing Therapy Reference: STATIN DOSE THERAPY REFERENCE: * Patients > 75 years receive moderate or high dose statin therapy. * Patients 75 years or YOUNGER should receive HIGH intensity statin dose unless contraindicated. You will be required to document reason for non-treatment if statin daily dose does not meet guidelines. HIGH DOSE STATIN THERAPY DAILY Atorvastatin > than or = to 40 mg Rosuvastatin > than or = to 20 mg Amlodipine + Atorvastatin > than or = to 2.5/40 mg Ezetimibe + Simvastatin 10/80 mg Simvastatin 80mg Discharge Plan Admission Admit Date/Time: 01/08/24 22:49 Primary Reason for Your Visit: Heart failure exacerbation Attending Provider: Matt Pina Primary Care Provider: Fidel Maurer Consulting Providers: Lashonda Castillo Instructions Additional Instructions / Restrictions: BMP in 1 week and follow with PCP/cardiology office, Anita Boone Advised thigh-high ALLEN hose while awake. Incentive spirometry for 1 week. CPAP to use at night during asleep Discharge Orders/Prescriptions Prescriptions: New sennosides-docusate sodium [Stimulant Laxative Plus] 8.6-50 mg Tablet 2 tab PO BID PRN PRN (Reason: Constipation) Qty: 0 0RF Rx Instructions: [id number] Continued acetaminophen [Tylenol Arthritis Pain] 650 mg tablet extended release 650 mg PO Q12H budesonide-formoterol [Symbicort] 160-4.5 mcg/actuation HFA aerosol inhaler 2 puff INHALATION BID PRN (Reason: sob) Soothe XP 1-4.5 % drops 1 drp ophthalmic (eye) PRN PRN (Reason: dry eyes) rosuvastatin 20 mg tablet 20 mg PO DAILY carvedilol 6.25 MG tablet 6.25 mg PO BID levothyroxine 88 MCG tablet 88 mcg PO DAILY aspirin 81 MG tablet,chewable 81 mg PO DAILY@0800 All Day Allergy (cetirizine) 10 mg capsule 10 mg PO DAILY calcium carbonate-vitamin D3 [Caltrate with Vitamin D3] 600 mg-20 mcg (800 unit) tablet 2 tab PO BID metolazone 2.5 mg tablet 2.5 mg PO DAILY potassium chloride 20 mEq tablet extended release 20 meq PO DAILY Xarelto 20 mg tablet See Rx Instructions .ROUTE .COMPLEX Qty: 90 3RF Dose Instruction: TAKE 1 TABLET BY MOUTH EVERY DAY Rx Instructions: TAKE 1 TABLET BY MOUTH EVERY DAY nitroglycerin 0.4 mg tablet, sublingual 0.4 mg SUBLINGUAL Q5-15M PRN (Reason: Chest Pain) Qty: 25 1RF Changed furosemide 40 mg tablet 40 mg PO BIDCM 30 Days Qty: 60 2RF lisinopril 20 mg tablet 20 mg PO QPM Qty: 180 3RF Rx Instructions: Hold for SBP less than 130 mmHg Referrals / Follow Up: Fidel aMurer DO [Primary Care Provider] - Anita Boone PA [Med Staff - Adv Practice Prof] - Within 2 Weeks (For heart failure exacerbation on furosemide and metolazone) Disposition Disposition (needs filled in before D/C Order can be placed): Home, Self Care Charges/Coding Visit Charges Inpatient E&M: 13510 Disch Hosp >30min
[2024-01-10 14:10] VITALS: BP 121/88; PULSE 80; RESP 18; TEMP 36.7; O2SAT 99
--- NOTE | 2024-01-10 14:44 | CHAPLAIN ---
Type of Pastoral Visit _x__ Initial Visit ___ Follow-up Visit ___ On-call Visit ___ General Patient Visit ___ Spiritual Assessment ___ Family Conference ___ Bereavement ___ Rapid Response ___ Code Blue ___ Other (describe below) Pastoral Care Referral From _x__ Patient ___ Family ___ Nurse ___ Physician ___ Staffing Account Manager ___ Wood Machine Carver ___ Other (describe below) Sacrament/Intervention _x__ Active listening ___ Anointing ___ Pentecostal ___ Bereavement ___ Communion _x__ Karyna exploration ___ _x__ Life review _x__ Prayer ___ Reconciliation ___ Sacrament of Sick ___ Supportive presence ___ Wedding ___ Other (describe below) Pastoral Comments patient expects to be discharged soon; spouse is with him; both report that his health was checked and he had pretty good reports; pt has had a history of health issues especially with his heart so they are both thankful for a good prognosis; pt and spouse talk about their work history and karyna connection; both are welcoming of 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
== END 2024-01-10 14:21 | disposition home or self-care (01) | DRG 291 ==
LOC: ED 22:37 → PCU 23:07
PROVIDERS: Admitting Provider Family Medicine; Emergency Provider Emergency Medicine; PCP Family Medicine; Visit Provider Internal Medicine
DX: I11.0 Hypertensive heart disease with heart failure (principal); I50.33 Acute on chronic diastolic (congestive) heart failure; L97.919 Non-pressure chronic ulcer of unspecified part of right lower leg with unspecified severity; L97.929 Non-pressure chronic ulcer of unspecified part of left lower leg with unspecified severity; F03.90 Unspecified dementia, unspecified severity, without behavioral disturbance, psychotic disturbance, mood disturbance, and anxiety; I73.9 Peripheral vascular disease, unspecified; J45.909 Unspecified asthma, uncomplicated; E03.9 Hypothyroidism, unspecified; E66.9 Obesity, unspecified; I48.0 Paroxysmal atrial fibrillation; I87.2 Venous insufficiency (chronic) (peripheral); G47.33 Obstructive sleep apnea (adult) (pediatric); E78.00 Pure hypercholesterolemia, unspecified; I25.10 Atherosclerotic heart disease of native coronary artery without angina pectoris; I25.2 Old myocardial infarction; I77.9 Disorder of arteries and arterioles, unspecified; Z79.01 Long term (current) use of anticoagulants; Z79.82 Long term (current) use of aspirin; R09.02 Hypoxemia; Z79.51 Long term (current) use of inhaled steroids; Z95.5 Presence of coronary angioplasty implant and graft; Z79.890 Hormone replacement therapy; R06.00 Dyspnea, unspecified; Z99.89 Dependence on other enabling machines and devices; Z68.35 Body mass index [BMI] 35.0-35.9, adult
CPT/HCPCS: 36415; 71046; 73590; 80048; 80053; 80061; 83605; 83735; 83880; 84443; 84484; 85025; 93005; 93306; 94002; 94640; 94660; 94668; 97802; 99285; Q9957; A4216; C8929; J1940

== ENCOUNTER 2024-01-14 08:50 | Emergency (ER) | payer MEDICARE, OTHER, SELFPAY ==
[2024-01-14 08:52] VITALS: BP 145/59; PULSE 58; RESP 16; TEMP 36.4; O2SAT 98; BMI 35.5
--- NOTE | 2024-01-14 09:15 | EKG12_ITS ---
Test Reason : SOB Blood Pressure : / mmHG Vent. Rate : 056 BPM Atrial Rate : 056 BPM P-R Int : 240 ms QRS Dur : 062 ms QT Int : 390 ms P-R-T Axes : -09 002 038 degrees QTc Int : 376 ms Sinus bradycardia with 1st degree A-V block Low voltage QRS Septal infarct , age undetermined Inferior infarct , age undetermined Abnormal ECG Confirmed by Trenton Rubalcava ([id number]), loan expeditor RIGOBERTO MCCABE ([id number]) on 01/16/2024 5:58:44 AM Referred By: Confirmed By:Trenton Rubalcava
[2024-01-14 09:33] LABS: Absolute Lymphocyte Count 1.64 X10^3/uL (0.83-4.51); Absolute Neutrophil Count 5.5 X10^3/uL (2.0-7.7); Basophil# 0.05 X10^3/uL; Basophil% 0.6 % (0-1); Eosinophil# 0.19 X10^3/uL; Eosinophils% 2.3 % (0-5); Hematocrit 39.3 % (40-54); Hemoglobin 13.2 g/dL (13.0-16.5); Lymphocyte # 1.64 X10^3/ul (0.83-4.51); Mean Corp Hgb Conc 33.6 g/dL (32-36); Mean Corpuscular Hgb 30.5 pg (27.0-32.0); Mean Corpuscular Volume 90.8 fL (80-94); Mean Platelet Vol. 9.8 fl (6.2-12.0); Monocyte# 0.77 X10^3/uL; Monocyte% 9.4 % (0-10); NRBC Flagged by Analyzer 0 % (0-5); Neutrophil # 5.51 X10^3/uL (2.7-7.7); Neutrophil % 67.3 % (47-70); Platelet Count 221 K/mm3 (150-450); RBC Distribution Width CV 12.4 % (11.6-14.6); RBC Distribution Width SD 40.6 fl (35.1-43.9); Red Blood Count 4.33 M/mm3 (4.6-6.2); White Blood Count 8.2 K/mm3 (4.4-11.0)
--- NOTE | 2024-01-14 09:35 | RAD_ITS ---
STUDY: X-RAY CHEST REASON FOR EXAM: Male, 83 years old. Chest pain and shortness of breath. TECHNIQUE: AP and lateral views of the chest. COMPARISON: Comparison is made with prior study January 08, 2024. FINDINGS: The lungs are clear and expanded. There is no demonstrated pleural abnormality. Normal size heart. Normal mediastinum and harinder. Normal visualized pulmonary arteries. There is atherosclerotic calcification of the aortic arch with tortuosity. There are diffuse degenerative changes of the visualized thoracic spine. Normal visualized ribs, clavicles, and shoulders. There is no demonstrated abnormality of the visualized soft tissue structures of the upper abdomen. RAD/Chest PA and Lateral IMPRESSION: No acute abnormality is seen. Electronically Signed: Gregorio Armendariz MD at 10:31 EDT ,
[2024-01-14 09:51] LABS: International Normalized Ratio 2.5; Prothrombin Time (Protime)PT. 27.2 SECONDS (11.7-14.9)
[2024-01-14 09:52] LABS: Partial Thromboplast Time 49.2 Seconds (24.1-36.2)
[2024-01-14 10:02] LABS: Anion Gap 6 (5-15); BUN 40 mg/dL (7-18); BUN/Creat Ratio 24.5 RATIO (10-20); Calcium,Total 10.7 mg/dL (8.5-10.1); Chloride 99 mmol/L (98-107); Creatinine, Serum 1.63 mg/dL (0.70-1.30); EST Glomerular Filtration Rate 43 mL/min (>60); Est Glom Filt Rate - Afr Amer 52 mL/min (>60); Estimated Creatinine Clearance 40.64 ml/min; Glucose 107 mg/dL (74-106); Sodium Level 138 mmol/L (136-145); Troponin-I HS (w/2H Reflex) 8 pg/mL (3.0-78.0)
[2024-01-14 10:04] LABS: BNP,B-Type NATRIURETIC PEPTIDE 36.4 pg/mL (0-100)
--- NOTE | 2024-01-14 10:13 | EX.ED.DYSGE1 ---
HPI History of Present Illness Chief Complaint: Shortness of Breath Narrative Narrative: Patient is a 83-year-old male past medical history of CAD, CHF, peripheral vascular disease, chronic venous stasis ulcers in the bilateral lower extremities, hypothyroidism who presents to the emergency department chief complaint of shortness of breath. Patient had for the past few days now he noted that he has been having on and off shortness of breath. He states he has been compliant with his medications including the recent prescription of furosemide. He states that his swelling is improved. They did note that he has a rash on his bilateral lower extremities which is new but states that no new laundry detergents. Patient states that this is not itchy in nature. He states that yesterday and this morning he had significant difficulty with breathing and catching his breath he states that he started to panic. 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 Myocardial infarct, old Abnormal nuclear stress test Shortness of breath PVD (peripheral vascular disease) Obesity (BMI 35.0-39.9 without comorbidity) Hypothyroidism Home Medications ?Medication ?Instructions ?Recorded ?Last Taken ?Type aspirin 81 mg chewable tablet 81 mg PO DAILY@0800 HEART HEALTH 01/31/16 Unknown History carvedilol 6.25 mg tablet 6.25 mg PO BID HEART 01/31/16 Unknown History levothyroxine 88 mcg tablet 88 mcg PO DAILY THYROID 01/31/16 Unknown History acetaminophen 650 mg 650 mg PO Q12H PAIN/FEVER 03/09/21 Unknown History tablet,extended release (Tylenol Arthritis Pain) budesonide-formoterol HFA 160 2 puff inhalation BID PRN 06/10/21 Unknown History mcg-4.5 mcg/actuation aerosol SHORTNESS OF BREATH inhaler (Symbicort) light mineral oil 1 %-mineral oil 1 drp ophthalmic (eye) DAILY PRN 09/29/21 Unknown History 4.5 % eye drops (Soothe XP) DRY EYE RELIEF rosuvastatin 20 mg tablet 20 mg PO DAILY CHOLESTEROL 05/10/24 Unknown History nitroglycerin 0.4 mg sublingual 0.4 mg sublingual Q5-15M PRN CHEST 10/10/23 Unknown Rx tablet PAIN #25 tabs calcium 600 mg (as 2 tab PO BID SUPPLEMENT 01/08/24 Unknown History carbonate)-vitamin D3 20 mcg (800 unit) tablet (Caltrate with Vitamin D3) cetirizine 10 mg capsule (All Day 10 mg PO DAILY ALLERGIES 01/08/24 Unknown History Allergy (cetirizine)) metolazone 2.5 mg tablet 2.5 mg PO DAILY EDEMA 01/08/24 Unknown History potassium chloride 20 mEq 20 meq PO DAILY SUPPLEMENT 01/08/24 Unknown History tablet,extended release furosemide 40 mg tablet 40 mg PO BIDCM EDEMA 30 days #60 01/10/24 Unknown Rx tabs lisinopril 20 mg tablet 20 mg PO QPM BLOOD PRESSURE #180 01/10/24 Unknown Rx tabs rivaroxaban 20 mg tablet (Xarelto) 20 mg PO DAILY BLOOD THINNER 01/14/24 Unknown History sennosides 8.6 mg-docusate sodium 2 tab PO BID PRN CONSTIPATION 01/14/24 Unknown History 50 mg tablet (Stimulant Laxative Plus) Allergy/AdvReac Type Severity Reaction Status Date / Time No Known Allergies Allergy Verified 01/14/24 08:52 Family History Father CAD (coronary artery disease) Colon cancer Hypertension Mother CAD (coronary artery disease) CVA (cerebral vascular accident) Brother CAD (coronary artery disease) Brother COPD (chronic obstructive pulmonary disease) Surgical History History of basal cell carcinoma excision History of cataract surgery History of neck surgery History of shoulder surgery History of right-sided carotid endarterectomy (~06/2012) History of cardiac radiofrequency ablation (~01/2015) S/P PTCA (percutaneous transluminal coronary angioplasty) (~01/11/11) Social History household members: spouse Smoking Status: Never smoker alcohol intake: never substance use type: does not use caffeine: No what type of physical activity do you participate in: none seatbelt use: always do you feel safe at home: Yes ROS ROS ED ROS Narrative Constitutional: Denies any fevers, chills, headaches, lightness, dizziness Eyes: Denies change in vision double vision blurry vision Cardiovascular: Denies chest pain or palpitations Respiratory: Complaint shortness of breath as noted above denies coughing or wheezing Abdomen: Denies abdominal pain nausea vomit diarrhea : Denies any urinary symptoms Neurological: Denies numbness, weakness, tingling Musculoskeletal: Denies back pain Skin: Complains of rash as noted above EXAM Physical Exam Narrative Exam Narrative: General: Patient lying in bed rest comfortably did not appear to be in acute distress Head: Atraumatic, normocephalic Eyes ears, nose, throat: PERRL bilateral, EOMI bilateral, no conjunctival injection noted. No intraoral lesions noted Neck: Soft, supple, trachea midline Cardiovascular: Regular rate and rhythm no murmurs gallops rubs noted Respiratory: Clear to auscultation bilaterally Abdomen: Soft, nondistended, nontender to palpation, bowel sounds present x 4 Extremities: +5/5 strength noted in the bilateral lower extremities, no pedal edema on exam, DP pulses +2/4 in the bilateral extremities Neurological: Patient follow commands knew that he was at [facility] he was 2023 Skin: Patient has rash noted to the anterior lower extremities/arevalo region. This is blanchable in nature no sloughing of the skin noted Const Vital Signs: 01/14/24 08:50 01/14/24 08:52 01/14/24 10:50 Temperature 97.5 F L Temperature Source Oral Pulse Rate 58 L 57 L Respiratory Rate 16 18 Respiratory Effort Normal Non-Labored Respiratory Depth Normal Respiratory Pattern Normal Blood Pressure 145/59 H 107/60 Blood Pressure Mean 87 75 Pulse Ox 98 97 Oxygen Delivery Method Room Air Room Air Room Air 01/14/24 12:00 Temperature Temperature Source Pulse Rate 98 Respiratory Rate 18 Respiratory Effort Respiratory Depth Respiratory Pattern Blood Pressure 111/69 Blood Pressure Mean 83 Pulse Ox 95 Oxygen Delivery Method Room Air MDM MDM MDM Narrative Medical decision making narrative: Patient is a 83-year-old male who presented to the emergency department with a chief complaint of shortness of breath. Patient will have workup performed here on the differential diagnose includes Melamin to pneumonia, pneumothorax, CHF exacerbation, panic attack. Once workup is obtained reviewed he will be reevaluated. Patient CBC reviewed and showed no evidence of leukocytosis white blood cell normal 8.2, hemoglobin stable 13.2, platelet count normal at 321. Patient's INR was 2.5, PT of 27.2 he is on Xarelto. Patient sodium normal 138, potassium of 4, creatinine was noted to be 1.63, troponin was noted be 8 with a delta troponin obtained to be normal at 5. Patient's EKG reviewed and showed sinus bradycardia with a rate of 56 bpm. Patient's proBNP normal at 36. Patient's x-ray of his chest was reviewed and showed no acute abnormality seen. Did ambulate the patient here in the emergency department he had no evidence of hypoxia and felt at his baseline when ambulating. 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 I did encourage him to continue to use CPAP every single night as he states that he uses it intermittently. I encouraged him to follow-up with his primary care physician as well and return with worsening symptoms or other concerns him and his significant other agreeable this plan would like to go home all question concerns answered he is discharged home in stable condition. Lab Data Labs: Laboratory Results - last 24 hr 01/14/24 01/14/24 09:03 11:45 WBC 8.2 RBC 4.33 L Hgb 13.2 Hct 39.3 L MCV 90.8 MCH 30.5 MCHC 33.6 RDW Std Deviation 40.6 RDW Coeff of Rogelio 12.4 Plt Count 221 MPV 9.8 Immature Gran % (Auto) 0.400 Neut % (Auto) 67.3 Lymph % (Auto) 20.0 Kimball % (Auto) 9.4 Eos % (Auto) 2.3 Baso % (Auto) 0.6 Absolute Neuts (auto) 5.5 Absolute Lymphs (auto) 1.64 Nucleated RBC % 0 PT 27.2 H INR 2.5 APTT 49.2 H Sodium 138 Potassium 4.0 Chloride 99 Carbon Dioxide 33.0 H Anion Gap 6 BUN 40 H Creatinine 1.63 H Estim Creat Clear Calc 40.64 Est GFR (MDRD) Af Amer 52 L Est GFR (MDRD) Non-Af 43 L BUN/Creatinine Ratio 24.5 H Glucose 107 H Calcium 10.7 H Troponin I High Sens 8 5 B-Natriuretic Peptide 36.4 Radiography Diagnostic Testing: Clinical Impression(s) from Imaging Studies Chest X-Ray 01/14/24 09:35 IMPRESSION: No acute abnormality is seen. Electronically Signed: Gregorio Armendariz MD at 10:31 EDT , Discharge Plan Triage Chief Complaint: Shortness of Breath ED Provider: Carlos Fernández Dx/Rx/DC Orders Prescriptions: No Action acetaminophen [Tylenol Arthritis Pain] 650 mg tablet extended release 650 mg PO Q12H budesonide-formoterol [Symbicort] 160-4.5 mcg/actuation HFA aerosol inhaler 2 puff INHALATION BID PRN (Reason: SHORTNESS OF BREATH ) Soothe XP 1-4.5 % drops 1 drp ophthalmic (eye) DAILY PRN (Reason: DRY EYE RELIEF) rosuvastatin 20 mg tablet 20 mg PO DAILY carvedilol 6.25 MG tablet 6.25 mg PO BID levothyroxine 88 MCG tablet 88 mcg PO DAILY aspirin 81 MG tablet,chewable 81 mg PO DAILY@0800 All Day Allergy (cetirizine) 10 mg capsule 10 mg PO DAILY calcium carbonate-vitamin D3 [Caltrate with Vitamin D3] 600 mg-20 mcg (800 unit) tablet 2 tab PO BID metolazone 2.5 mg tablet 2.5 mg PO DAILY potassium chloride 20 mEq tablet extended release 20 meq PO DAILY furosemide 40 mg tablet 40 mg PO BIDCM 30 Days Qty: 60 2RF lisinopril 20 mg tablet 20 mg PO QPM Qty: 180 3RF Rx Instructions: Hold for SBP less than 130 mmHg sennosides-docusate sodium [Stimulant Laxative Plus] 8.6-50 mg Tablet 2 tab PO BID PRN (Reason: CONSTIPATION ) Xarelto 20 mg tablet 20 mg PO DAILY nitroglycerin 0.4 mg tablet, sublingual 0.4 mg SUBLINGUAL Q5-15M PRN (Reason: CHEST PAIN ) Qty: 25 1RF Primary Care Provider: Fidel Maurer Referrals: Fidel Maurer DO [Primary Care Provider] - Print Language: [place] Islander
[2024-01-14 10:50] VITALS: BP 107/60; PULSE 57; RESP 18; O2SAT 97
[2024-01-14 11:29] LABS: Reflex Troponin-HS? (from REC) Y
[2024-01-14 12:00] VITALS: BP 111/69; PULSE 98; RESP 18; O2SAT 95
[2024-01-14 12:10] LABS: Troponin-I HS 5 pg/mL (3.0-78.0)
[2024-01-14 13:02] VITALS: O2SAT 96
[2024-01-14 14:43] VITALS: BP 110/49; PULSE 79; RESP 18; TEMP 36.7; O2SAT 97
== END 2024-01-14 14:45 | disposition home or self-care (01) ==
PROVIDERS: Emergency Provider Emergency Medicine; PCP Family Medicine; Visit Provider Emergency Medicine
DX: R06.02 Shortness of breath (principal); I50.9 Heart failure, unspecified; I11.0 Hypertensive heart disease with heart failure; I48.0 Paroxysmal atrial fibrillation; I25.10 Atherosclerotic heart disease of native coronary artery without angina pectoris; E78.00 Pure hypercholesterolemia, unspecified; Z95.5 Presence of coronary angioplasty implant and graft; I25.2 Old myocardial infarction; Z79.82 Long term (current) use of aspirin; Z79.899 Other long term (current) drug therapy; Z79.890 Hormone replacement therapy; Z99.89 Dependence on other enabling machines and devices; G47.33 Obstructive sleep apnea (adult) (pediatric)
CPT/HCPCS: 71046; 80048; 83880; 84484; 85025; 85610; 85730; 93005; 99284; A4216

== ENCOUNTER 2024-01-19 07:33 | Emergency (ER) | payer MEDICARE, OTHER, SELFPAY ==
[2024-01-19 07:34] VITALS: BP 136/62; PULSE 62; RESP 16; TEMP 36; O2SAT 99; BMI 34.7
--- NOTE | 2024-01-19 07:41 | EKG12_ITS ---
Test Reason : SOB Blood Pressure : / mmHG Vent. Rate : 061 BPM Atrial Rate : 061 BPM P-R Int : 216 ms QRS Dur : 066 ms QT Int : 394 ms P-R-T Axes : 045 008 027 degrees QTc Int : 396 ms Sinus rhythm with 1st degree A-V block with Premature supraventricular complexes Low voltage QRS Cannot rule out Anteroseptal infarct (cited on or before 29-APR-2023) Abnormal ECG Confirmed by Trenton Rubalcava ([id number]), online editor FELIPE ROMERO ([id number]) on 01/21/2024 9:32:52 AM Referred By: Confirmed By:Trenton Rubalcava
[2024-01-19 07:43] VITALS: O2SAT 93
[2024-01-19 07:44] VITALS: PULSE 60; RESP 15; O2SAT 96
--- NOTE | 2024-01-19 07:51 | ED.VIS.DYS ---
HPI History of Present Illness Chief Complaint: Shortness of Breath Detail of Chief Complaint: Subjective shortness of breath. History of anxiety. History of CHF. Informant: patient and spouse/S.O. Onset/Context/Timing Onset: Today Context: gradual Current Severity: Mild Maximum Severity: Mild Worsened by: Nothing Relieved by: Nothing Associated Symptoms Negative for cough Chest Pain: Positive for None Narrative Narrative: 83-year-old male history of CHF, CAD, NE, hypothyroidism. Recently diagnosed with dementia in November. He has a history of anxiety and his primary care physician saw him on Sunday start him on fluoxetine daily. states he was just admitted and discharged this past Sunday less than a week ago. He said he gets anxious. She did not want to bring him in but said he she just could not convince him that he was doing okay at home. He denies any chest pain. No fever or cough. Recent admission he had pitting edema he has been on Lasix for that and that is much improved. PE Risk Factors: Positive for Recent immobilization; Negative for Cancer, OCP + Smoking + > 35, Prior DVT or PE, Recent surgery or Recent travel Prior similar symptoms: Yes Recent Illness/Hospitalization: Yes [facility] Medical History Contact with and (suspected) exposure to other viral communicable diseases Acute bronchitis, unspecified PVD (peripheral vascular disease) Pure hypercholesterolemia Presence of stent in coronary artery (~01/11/11) Essential hypertension Atherosclerotic heart disease of [place] coronary artery without angina pectoris Paroxysmal atrial fibrillation Stenosis of right carotid artery Obstructive sleep apnea 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 Myocardial infarct, old Abnormal nuclear stress test Shortness of breath PVD (peripheral vascular disease) Obesity (BMI 35.0-39.9 without comorbidity) Hypothyroidism Home Medications ?Medication ?Instructions ?Recorded ?Last Taken ?Type aspirin 81 mg chewable tablet 81 mg PO DAILY@0800 HEART HEALTH 01/31/16 Unknown History carvedilol 6.25 mg tablet 6.25 mg PO BID HEART 01/31/16 Unknown History levothyroxine 88 mcg tablet 88 mcg PO DAILY THYROID 01/31/16 Unknown History acetaminophen 650 mg 650 mg PO Q12H PAIN/FEVER 03/09/21 Unknown History tablet,extended release (Tylenol Arthritis Pain) budesonide-formoterol HFA 160 2 puff inhalation BID PRN 06/10/21 Unknown History mcg-4.5 mcg/actuation aerosol SHORTNESS OF BREATH inhaler (Symbicort) light mineral oil 1 %-mineral oil 1 drp ophthalmic (eye) DAILY PRN 09/29/21 Unknown History 4.5 % eye drops (Soothe XP) DRY EYE RELIEF rosuvastatin 20 mg tablet 20 mg PO DAILY CHOLESTEROL 08/17/23 Unknown History nitroglycerin 0.4 mg sublingual 0.4 mg sublingual Q5-15M PRN CHEST 10/10/23 Unknown Rx tablet PAIN #25 tabs calcium 600 mg (as 2 tab PO BID SUPPLEMENT 01/08/24 Unknown History carbonate)-vitamin D3 20 mcg (800 unit) tablet (Caltrate with Vitamin D3) cetirizine 10 mg capsule (All Day 10 mg PO DAILY ALLERGIES 01/08/24 Unknown History Allergy (cetirizine)) metolazone 2.5 mg tablet 2.5 mg PO DAILY EDEMA 01/08/24 Unknown History potassium chloride 20 mEq 20 meq PO DAILY SUPPLEMENT 01/08/24 Unknown History tablet,extended release furosemide 40 mg tablet 40 mg PO BIDCM EDEMA 30 days #60 01/10/24 Unknown Rx tabs lisinopril 20 mg tablet 20 mg PO QPM BLOOD PRESSURE #180 01/10/24 Unknown Rx tabs rivaroxaban 20 mg tablet (Xarelto) 20 mg PO DAILY BLOOD THINNER 01/14/24 Unknown History sennosides 8.6 mg-docusate sodium 2 tab PO BID PRN CONSTIPATION 01/14/24 Unknown History 50 mg tablet (Stimulant Laxative Plus) fluoxetine 10 mg capsule 10 mg PO DAILY 01/19/24 01/19/24 History Allergy/AdvReac Type Severity Reaction Status Date / Time No Known Allergies Allergy Verified 01/19/24 07:34 Family History Father CAD (coronary artery disease) Colon cancer Hypertension Mother CAD (coronary artery disease) CVA (cerebral vascular accident) Brother CAD (coronary artery disease) Brother COPD (chronic obstructive pulmonary disease) Surgical History History of basal cell carcinoma excision History of cataract surgery History of neck surgery History of shoulder surgery History of right-sided carotid endarterectomy (~06/2012) History of cardiac radiofrequency ablation (~01/2015) S/P PTCA (percutaneous transluminal coronary angioplasty) (~01/11/11) Social History household members: spouse Smoking Status: Never smoker alcohol intake: never substance use type: does not use caffeine: No what type of physical activity do you participate in: none seatbelt use: always do you feel safe at home: Yes ROS ROS ED ROS Narrative Subjective shortness of breath. Constitutional Constitutional ED: Denies chills or fever(s) Eyes Eyes: Denies blurry vision ENT ENT ED: Denies ear pain Cardiovascular Cardiovascular: Denies chest pain Respiratory/Chest Respiratory/Chest: Reports dyspnea; Denies cough Gastrointestinal Gastrointestinal: Denies abdominal pain Genitourinary Genitourinary ED: Denies dysuria or hematuria Musculoskeletal Musculoskeletal: Denies arthralgias Integumentary Denies abscess Neurologic Neurologic: Denies headache(s) Psychiatric Psychiatric: Reports anxiety Endocrine Endocrinology: Denies cold intolerance Hematologic/Lymphatic Hematologic/Lymphatic: Denies easy bleeding Allergic/Immunologic Allergic/Immunologic ED: Denies mouth swelling, tongue swelling or urticaria EXAM Physical Exam Narrative Exam Narrative: 83-year-old male no acute distress vital signs stable afebrile. Pulse ox 9 9% on room air no signs hypoxia. H EENT exam unremarkable. Neck nontender no JVD. Lungs clear to auscultation bilaterally. Heart regular rate and rhythm rate about 60 no murmur. Chest wall and ribs nontender. Abdomen soft nontender. Moving all 4 extremities. Calves are nontender. There is no edema or cords. Normal bid writer strength. Normal dorsi plantarflexion. Neurologically he is awake and alert. He answers questions. He does have some dementia. He is following commands. is at bedside and gives most of the history. Const Vital Signs: 01/19/24 07:34 01/19/24 07:43 01/19/24 07:44 Temperature 96.8 F L Temperature Source Temporal Pulse Rate 62 60 Respiratory Rate 16 15 Respiratory Effort Respiratory Depth Respiratory Pattern Blood Pressure 136/62 H Blood Pressure Mean 86 Pulse Ox 99 93 96 Oxygen Delivery Method Room Air Room Air Room Air 01/19/24 07:54 01/19/24 09:54 Temperature 97.2 F L Temperature Source Oral Pulse Rate 62 Respiratory Rate 16 Respiratory Effort Normal Non-Labored Respiratory Depth Normal Respiratory Pattern Normal Blood Pressure 109/55 L Blood Pressure Mean 73 Pulse Ox 100 Oxygen Delivery Method Room Air Room Air Positive well nourished and well developed; Negative for cachectic, contractures or unkempt General Appearance ED: well developed and NAD; Negative for unkempt, cachectic, contractures or pallor Nutritional Appearance: Negative for cachectic HEENT Reports moist mucous membranes atraumatic; Negative for trauma or tenderness Eyes PERRL and EOMs intact bilaterally General Eye ED: Negative for pale conjunctiva or scleral icterus Neck no lymphadenopathy, supple, no meningeal signs and no JVD General: Negative for tenderness Lymph Lymphatic: Negative for other Chest Wall Chest: Negative for other Resp normal respiratory effort and clear to auscultation bilaterally Effort and Inspection: Negative for pain with movement Auscultation: Negative for rales, rhonchi, wheezes or diminished lung sounds Cardio regular rate, regular rhythm, S1 normal heart sound, S2 normal heart sound and no murmurs Rate: Negative for bradycardia or tachycardic Rhythm: Negative for abnormal rhythm GI non-tender, non-distended and no masses Auscultation: normoactive bowel sounds Palpation: soft; Negative for tender or guarding Back/Spine no CVA tenderness and normal to inspection General Back: Negative for CVA tenderness Extremity normal to inspection General Extremety ED: Negative for edema or tenderness General Extremity: Negative for edema Neuro oriented x3 and CN's II-XII intact bilaterally Neuro Narrative: Patient does have dementia has mild confusion. This is his baseline. Sensorium / Orientation: alert, oriented to person and oriented to place Motor Exam: strength 5/5 throughout Psych mental status grossly normal Appearance: Negative for unkempt Mood & Affect: anxious; Negative for depressed or tearful Thought Process: normal thought process Skin no wounds and skin turgor normal General Skin Exam: Negative for jaundice or pallor Lesions: no lesions Rashes: no rashes MDM MDM MDM Narrative Medical decision making narrative: 83-year-old male subjective shortness of breath. Exam is benign. His vital signs are stable. His pulse ox is between 96 to 99% on room air there is no hypoxia. He clinically does not look ill. This may be secondary to anxiety. He does have a history of recent hospitalization and a history of CHF will undergo a cardiac workup. That is negative he will be discharged home with his . Repeat exam patient is doing well at 10:38 AM. He and his and I discussed his test results. I do not see anything that we need to meet in the hospital for. I suspect this is all secondary more so to anxiety. They are comfortable with him being discharged to home. He has recently just started an antianxiety medication. History & Record Review Discussion w/independent historian: Patient Additional record(s) reviewed:: Prior inpatient record, Prior outpatient record, Prior ED visit and Prior labs Lab Data Attestation: I reviewed the patient's lab results. Lab results narrative: CBC shows a white count of 6. H&H 11.2 and 32.9 consistent with prior labs. Platelets 210. Electrolytes show gap 6. BUN and creatinine of 47 and 1.99 consistent with his prior labs. Glucose 121. Troponin 6. Labs: Laboratory Results - last 24 hr 01/19/24 07:53 WBC 6.6 RBC 3.68 L Hgb 11.2 L Hct 32.9 L MCV 89.4 MCH 30.4 MCHC 34.0 RDW Std Deviation 40.7 RDW Coeff of Rogelio 12.5 Plt Count 210 MPV 9.9 Immature Gran % (Auto) 0.300 Neut % (Auto) 61.3 Lymph % (Auto) 25.2 [place] % (Auto) 11.1 H Eos % (Auto) 1.5 Baso % (Auto) 0.6 Absolute Neuts (auto) 4.0 Absolute Lymphs (auto) 1.65 Nucleated RBC % 0 Sodium 137 Potassium 3.9 Chloride 100 Carbon Dioxide 31.0 Anion Gap 6 BUN 47 H Creatinine 1.99 H Estim Creat Clear Calc 32.92 Est GFR (MDRD) Af Amer 42 L Est GFR (MDRD) Non-Af 34 L BUN/Creatinine Ratio 23.6 H Glucose 121 H Calcium 10.0 Troponin I High Sens 6 Radiography Chest X-Ray - ED: 1 View, Read by ED Physician, Read by Radiologist, Heart, Lungs, Mediastinum, Bony Structures, No Acute Disease and Chronic Changes Diagnostic Testing: Clinical Impression(s) from Imaging Studies Chest X-Ray 01/19/24 08:00 IMPRESSION: No acute pulmonary process, no interval change Electronically Signed: Gage Barron MD at 8:16 EDT , Chest x-ray, portable, single view interpreted both by myself and the radiologist shows no acute abnormality. Normal cardiac silhouette. Normal lung limon. Chronic changes. Rhythm Strip Rhythm Strip: Sinus Rhythm Rate: 61 Ectopy: None EKG Initial EKG: Attestation: I personally reviewed and interpreted this EKG as follows: Interpretation: Sinus Rhythm and No Acute Injury Pattern Comments: Normal sinus rhythm rate of 61 no acute signs of NE or ischemia. First-degree AV block CO interval of 216. Discharge Plan Triage Chief Complaint: Shortness of Breath ED Provider: Rodolfo Santillan Dx/Rx/DC Orders Clinical Impression: Anxiety, Dyspnea, History of dementia Instructions: Anxiety Disorders Tx Prescriptions: No Action acetaminophen [Tylenol Arthritis Pain] 650 mg tablet extended release 650 mg PO Q12H budesonide-formoterol [Symbicort] 160-4.5 mcg/actuation HFA aerosol inhaler 2 puff INHALATION BID PRN (Reason: SHORTNESS OF BREATH ) Soothe XP 1-4.5 % drops 1 drp ophthalmic (eye) DAILY PRN (Reason: DRY EYE RELIEF) rosuvastatin 20 mg tablet 20 mg PO DAILY carvedilol 6.25 MG tablet 6.25 mg PO BID levothyroxine 88 MCG tablet 88 mcg PO DAILY aspirin 81 MG tablet,chewable 81 mg PO DAILY@0800 All Day Allergy (cetirizine) 10 mg capsule 10 mg PO DAILY calcium carbonate-vitamin D3 [Caltrate with Vitamin D3] 600 mg-20 mcg (800 unit) tablet 2 tab PO BID metolazone 2.5 mg tablet 2.5 mg PO DAILY potassium chloride 20 mEq tablet extended release 20 meq PO DAILY furosemide 40 mg tablet 40 mg PO BIDCM 30 Days Qty: 60 2RF lisinopril 20 mg tablet 20 mg PO QPM Qty: 180 3RF Rx Instructions: Hold for SBP less than 130 mmHg sennosides-docusate sodium [Stimulant Laxative Plus] 8.6-50 mg Tablet 2 tab PO BID PRN (Reason: CONSTIPATION ) Xarelto 20 mg tablet 20 mg PO DAILY fluoxetine 10 mg capsule 10 mg PO DAILY nitroglycerin 0.4 mg tablet, sublingual 0.4 mg SUBLINGUAL Q5-15M PRN (Reason: CHEST PAIN ) Qty: 25 1RF Primary Care Provider: Fidel Maurer Referrals: Fidel Maurer, DO [Primary Care Provider] - As Needed Activity Restrictions/Additional Instructions: His tests look good today. I think a lot of this is secondary to anxiety. Follow-up with his primary care physician as needed. Print Language: Hungarian Disposition Disposition: Home, Self Care
[2024-01-19 07:54] VITALS: O2SAT 97
[2024-01-19 07:59] LABS: Absolute Lymphocyte Count 1.65 X10^3/uL (0.83-4.51); Basophil# 0.04 X10^3/uL; Basophil% 0.6 % (0-1); Eosinophils% 1.5 % (0-5); Hematocrit 32.9 % (40-54); Hemoglobin 11.2 g/dL (13.0-16.5); Lymphocyte # 1.65 X10^3/ul (0.83-4.51); Lymphocyte % 25.2 % (19-41); Mean Corpuscular Hgb 30.4 pg (27.0-32.0); Mean Corpuscular Volume 89.4 fL (80-94); Mean Platelet Vol. 9.9 fl (6.2-12.0); Monocyte# 0.73 X10^3/uL; Monocyte% 11.1 % (0-10); NRBC Flagged by Analyzer 0 % (0-5); Neutrophil # 4.01 X10^3/uL (2.7-7.7); Neutrophil % 61.3 % (47-70); Platelet Count 210 K/mm3 (150-450); RBC Distribution Width CV 12.5 % (11.6-14.6); RBC Distribution Width SD 40.7 fl (35.1-43.9); Red Blood Count 3.68 M/mm3 (4.6-6.2); White Blood Count 6.6 K/mm3 (4.4-11.0)
--- NOTE | 2024-01-19 08:00 | RAD_ITS ---
STUDY: X-RAY CHEST REASON FOR EXAM: Male, 83 years old. Atypical chest pain TECHNIQUE: Single AP portable view of the chest. COMPARISON: 01/14/2024 FINDINGS: EKG leads overlie the chest The lungs are clear and expanded. There is no demonstrated pleural abnormality. Normal size heart. Normal mediastinum and harinder. Normal visualized pulmonary arteries. Normal visualized aortic arch and descending thoracic aorta. Normal visualized thoracic spine. Normal visualized ribs, clavicles, and shoulders. There is no demonstrated abnormality of the visualized soft tissue structures of the upper abdomen. RAD/Chest 1 View (Portable) IMPRESSION: No acute pulmonary process, no interval change Electronically Signed: Gage Barron MD at 8:16 EDT ,
[2024-01-19 08:29] LABS: Anion Gap 6 (5-15); BUN 47 mg/dL (7-18); BUN/Creat Ratio 23.6 RATIO (10-20); Chloride 100 mmol/L (98-107); Creatinine, Serum 1.99 mg/dL (0.70-1.30); EST Glomerular Filtration Rate 34 mL/min (>60); Est Glom Filt Rate - Afr Amer 42 mL/min (>60); Estimated Creatinine Clearance 32.92 ml/min; Glucose 121 mg/dL (74-106); Potassium 3.9 mmol/L (3.5-5.1); Sodium Level 137 mmol/L (136-145); Troponin-I HS 6 pg/mL (3.0-78.0)
[2024-01-19 09:54] VITALS: BP 109/55; PULSE 62; RESP 16; TEMP 36.2; O2SAT 100
[2024-01-19 10:46] VITALS: BP 105/55; PULSE 60; RESP 18; TEMP 36.6; O2SAT 97
== END 2024-01-19 10:48 | disposition home or self-care (01) ==
PROVIDERS: Emergency Provider Emergency Medicine; PCP Family Medicine; Visit Provider Emergency Medicine
DX: F41.9 Anxiety disorder, unspecified (principal); I11.0 Hypertensive heart disease with heart failure; I50.9 Heart failure, unspecified; F03.90 Unspecified dementia, unspecified severity, without behavioral disturbance, psychotic disturbance, mood disturbance, and anxiety; I48.0 Paroxysmal atrial fibrillation; E78.00 Pure hypercholesterolemia, unspecified; I25.10 Atherosclerotic heart disease of native coronary artery without angina pectoris; Z95.5 Presence of coronary angioplasty implant and graft; I25.2 Old myocardial infarction; Z79.82 Long term (current) use of aspirin; E03.9 Hypothyroidism, unspecified; Z79.890 Hormone replacement therapy
CPT/HCPCS: 71045; 80048; 84484; 85025; 93005; 99284; A4216

== ENCOUNTER 2024-01-26 04:46 | Emergency (ER) | payer MEDICARE, OTHER, SELFPAY ==
[2024-01-26] VITALS (12 sets, daily range): BP systolic 99–125; BP diastolic 44–92; PULSE 54–112; RESP 11–24; TEMP 36.5–37; O2SAT 95–100; BMI 34.2
--- NOTE | 2024-01-26 05:15 | EKG12_ITS ---
Test Reason : CP Blood Pressure : / mmHG Vent. Rate : 056 BPM Atrial Rate : 000 BPM P-R Int : 000 ms QRS Dur : 076 ms QT Int : 378 ms P-R-T Axes : 000 060 040 degrees QTc Int : 364 ms Probably Sinus Bradycardia with First Degree AV Block Low voltage QRS Cannot rule out Anteroseptal infarct , age undetermined Abnormal ECG Confirmed by Trenton Rubalcava ([id number]), deputy editor in chief RIGOBERTO MCCABE ([id number]) on 01/28/2024 11:23:14 AM Referred By: ARI Confirmed By:Trenton Rubalcava
--- NOTE | 2024-01-26 05:15 | RAD_ITS ---
INDICATION: chest pain EXAMINATION/TECHNIQUE: X-RAY - XR Chest 1 View COMPARISON: January 19, 2024. FINDINGS: LINES/DEVICES: None. LUNGS: No consolidation, edema or effusion. No pneumothorax. MEDIASTINUM AND CARDIOVASCULAR STRUCTURES: Cardiac silhouette not enlarged. BONES AND SOFT TISSUES: Unremarkable. RAD/Chest 1 View (Portable) IMPRESSION: No radiographic evidence of acute cardiopulmonary disease. Electronically Signed: Robby Navarrete MD at 6:47 EDT ,
--- NOTE | 2024-01-26 05:19 | EDS_ITS ---
HPI History of Present Illness Chief Complaint: Chest Pain Informant: patient, spouse/S.O. and EMS Narrative Narrative: 83-year-old male brought in around 4:30 AM after waking up 30-60 minutes prior out of breath and tremulous, telling his that he felt like he was having a heart attack. He states he feels better now. The seems distraught. She states he has episodes that are similar to this but without him using those words, that seem like he is having panic attacks, mostly with lots of shaking in his arms and sometimes with dyspnea. Never had any syncopal episodes with any of this. She cannot tell me even an estimate of how frequent this has been occurring, but basically hints that 2-3 months ago he started having memory issues and has been diagnosed with dementia. He has been put on medications for the anxiety recently. During one of the other ED visits for something similar in the past couple months, he had swelling in his legs and was put on furosemide and she states that is better now. She also states that he is supposed to use CPAP at night and he refuses and she cannot get him to do it. [facility] Medical History Contact with and (suspected) exposure to other viral communicable diseases Acute bronchitis, unspecified PVD (peripheral vascular disease) Pure hypercholesterolemia Presence of stent in coronary artery (~01/11/11) Essential hypertension Atherosclerotic heart disease of [place] coronary artery without angina pectoris Paroxysmal atrial fibrillation Stenosis of right carotid artery Obstructive sleep apnea Other correction (current) drug therapy Myocardial infarct, old Abnormal nuclear stress test Shortness of breath PVD (peripheral vascular disease) Obesity (BMI 35.0-39.9 without comorbidity) Hypothyroidism Home Medications ?Medication ?Instructions ?Recorded ?Last Taken ?Type aspirin 81 mg chewable tablet 81 mg PO DAILY@0800 HEART HEALTH 01/31/16 Unknown History carvedilol 6.25 mg tablet 6.25 mg PO BID HEART 01/31/16 Unknown History levothyroxine 88 mcg tablet 88 mcg PO DAILY THYROID 01/31/16 Unknown History light mineral oil 1 %-mineral oil 1 drp ophthalmic (eye) DAILY PRN 09/29/21 Unknown History 4.5 % eye drops (Soothe XP) DRY EYE RELIEF rosuvastatin 20 mg tablet 20 mg PO DAILY CHOLESTEROL 08/17/23 Unknown History nitroglycerin 0.4 mg sublingual 0.4 mg sublingual Q5-15M PRN CHEST 10/10/23 Unknown Rx tablet PAIN #25 tabs calcium 600 mg (as 2 tab PO BID SUPPLEMENT 01/08/24 Unknown History carbonate)-vitamin D3 20 mcg (800 unit) tablet (Caltrate with Vitamin D3) furosemide 40 mg tablet 40 mg PO BIDCM EDEMA 30 days #60 01/10/24 Unknown Rx tabs lisinopril 20 mg tablet 20 mg PO QPM BLOOD PRESSURE #180 01/10/24 Unknown Rx tabs rivaroxaban 20 mg tablet (Xarelto) 20 mg PO DAILY BLOOD THINNER 01/14/24 Unknown History sennosides 8.6 mg-docusate sodium 2 tab PO BID PRN CONSTIPATION 01/14/24 Unknown History 50 mg tablet (Stimulant Laxative Plus) buspirone 7.5 mg tablet 7.5 mg PO BID 01/26/24 Unknown History Allergy/AdvReac Type Severity Reaction Status Date / Time No Known Allergies Allergy Verified 01/26/24 04:56 Family History Father CAD (coronary artery disease) Colon cancer Hypertension Mother CAD (coronary artery disease) CVA (cerebral vascular accident) Brother CAD (coronary artery disease) Brother COPD (chronic obstructive pulmonary disease) Surgical History History of basal cell carcinoma excision History of cataract surgery History of neck surgery History of shoulder surgery History of right-sided carotid endarterectomy (~06/2012) History of cardiac radiofrequency ablation (~01/2015) S/P PTCA (percutaneous transluminal coronary angioplasty) (~01/11/11) Social History household members: spouse Smoking Status: Never smoker alcohol intake: never substance use type: does not use caffeine: No what type of physical activity do you participate in: none seatbelt use: always do you feel safe at home: Yes ROS ROS ED Constitutional Constitutional ED: Denies chills, fever(s) or sweats Eyes Eyes: Denies change in vision or diplopia ENT ENT ED: Denies rhinorrhea or sore throat Cardiovascular Cardiovascular: Reports as per HPI and paroxysmal nocturnal dyspnea; Denies chest pain or palpitations Respiratory/Chest Respiratory/Chest: Reports dyspnea and paroxysmal nocturnal dyspnea; Denies cough Gastrointestinal Gastrointestinal: Denies abdominal pain, diarrhea, nausea or vomiting Musculoskeletal Musculoskeletal: Denies back pain or neck pain Integumentary Denies abscess or rash Neurologic Neurologic: Denies headache(s) or paresthesias Psychiatric Psychiatric: Reports anxiety; Denies suicidal thoughts EXAM Physical Exam Const Vital Signs: 01/26/24 04:47 01/26/24 05:07 01/26/24 05:15 Temperature 98.6 F Temperature Source Oral Pulse Rate 62 112 H Respiratory Rate 18 24 H 22 H Blood Pressure 124/74 H 125/59 H Blood Pressure Mean 90 77 Pulse Ox 100 98 95 Oxygen Delivery Method Room Air 01/26/24 05:18 01/26/24 05:30 01/26/24 05:45 Temperature Temperature Source Pulse Rate 54 L Respiratory Rate 19 H Blood Pressure 108/54 L 104/44 L Blood Pressure Mean 71 63 Pulse Ox 95 Oxygen Delivery Method Room Air 01/26/24 06:00 01/26/24 06:15 01/26/24 06:30 Temperature Temperature Source Pulse Rate 57 L 57 L Respiratory Rate 18 11 L Blood Pressure 103/92 H 99/59 L 107/61 Blood Pressure Mean 98 73 76 Pulse Ox 95 95 Oxygen Delivery Method Positive well nourished and well developed Constitutional Narrative: In no distress General Appearance ED: well developed and NAD HEENT Reports moist mucous membranes normocephalic and atraumatic Eyes PERRL and EOMs intact bilaterally Neck full ROM, supple and no JVD Resp normal respiratory effort and clear to auscultation bilaterally Cardio regular rate, regular rhythm and no murmurs GI non-tender and non-distended Auscultation: normoactive bowel sounds Palpation: soft Back/Spine no CVA tenderness General Back: other FROM Extremity normal to inspection General Extremety ED: Negative for edema, pulses abnormal or tenderness General Extremity: Negative for edema or pulses abnormal Neuro CN's II-XII intact bilaterally and no sensory deficits noted Sensorium / Orientation: awake, alert, oriented to person and oriented to place Motor Exam: strength 5/5 throughout Skin no rashes or lesions noted and no wounds Heart Score History: Slightly/Non-Suspicious ECG: Normal Age: >/= 65 years Risk Factors: >/= 3 Risk Factors or History of CAD Troponin: </= Normal Limit Score: 4 MDM MDM MDM Narrative Medical decision making narrative: The patient does not remember if he had any chest discomfort, but he has none right now and he does not feel dyspneic anymore. He looks a little tremulous but otherwise okay, his vital signs are normal. He is on Eliquis for paroxysmal A-fib, certainly dysrhythmia such as that are in the differential here, as are anxiety, acute coronary syndrome, acute congestive heart failure. 1 view chest x-ray on my interpretation is normal showing no signs of acute pulmonary edema or consolidation or wide mediastinum. His pulses are equal in both feet and both wrists, 2+/4 and symmetric. His renal function is better than the last time it was checked, and his initial troponin is in the single digits. Also BNP is well within normal limits, ruling out acute decompensated congestive heart failure. At this time he is asymptomatic, his heart rate is in the 60s, and we will monitor him for a delta troponin measurement. If negative, I support discharging him home with close outpatient follow-up. Certainly possible this is all anxiety/psychogenic, it could also in this particular case be related to the fact that he has sleep apnea and is noncompliant with his CPAP as I discussed with the . History & Record Review Additional record(s) reviewed:: Prior outpatient record (Echocardiogram 2 weeks ago essentially normal) and Prior ED visit Lab Data Attestation: I reviewed the patient's lab results. Labs: Laboratory Results - last 24 hr 01/26/24 05:06 WBC 7.1 RBC 3.88 L Hgb 12.1 L Hct 34.7 L MCV 89.4 MCH 31.2 MCHC 34.9 RDW Std Deviation 42.2 RDW Coeff of Rogelio 13.1 Plt Count 288 MPV 9.6 Immature Gran % (Auto) 0.400 Neut % (Auto) 54.5 Lymph % (Auto) 32.7 Emanuel % (Auto) 9.0 Eos % (Auto) 2.7 Baso % (Auto) 0.7 Absolute Neuts (auto) 3.9 Absolute Lymphs (auto) 2.32 Nucleated RBC % 0.3 Sodium 140 Potassium 3.5 Chloride 105 Carbon Dioxide 29.0 Anion Gap 5 BUN 25 H Creatinine 1.63 H Estim Creat Clear Calc 39.87 Est GFR (MDRD) Af Amer 52 L Est GFR (MDRD) Non-Af 43 L BUN/Creatinine Ratio 15.3 Glucose 107 H Calcium 9.8 Troponin I High Sens 7 B-Natriuretic Peptide 44.0 Rhythm Strip Rhythm Strip: Sinus Rhythm Rate: 60 Ectopy: None EKG Initial EKG: Attestation: I personally reviewed and interpreted this EKG as follows: Interpretation: Sinus Rhythm and No Acute Injury Pattern Prior EKG tracings: available for review Prior: Unchanged Discharge Plan Triage Chief Complaint: Chest Pain ED Provider: Tereso Olivas Dx/Rx/DC Orders Clinical Impression: Nocturnal dyspnea, Obstructive sleep apnea, Anxiety, History of dementia Instructions: CPAP, ED Anxiety Reaction Prescriptions: No Action Soothe XP 1-4.5 % drops 1 drp ophthalmic (eye) DAILY PRN (Reason: DRY EYE RELIEF) rosuvastatin 20 mg tablet 20 mg PO DAILY carvedilol 6.25 MG tablet 6.25 mg PO BID levothyroxine 88 MCG tablet 88 mcg PO DAILY aspirin 81 MG tablet,chewable 81 mg PO DAILY@0800 calcium carbonate-vitamin D3 [Caltrate with Vitamin D3] 600 mg-20 mcg (800 unit) tablet 2 tab PO BID furosemide 40 mg tablet 40 mg PO BIDCM 30 Days Qty: 60 2RF lisinopril 20 mg tablet 20 mg PO QPM Qty: 180 3RF Rx Instructions: Hold for SBP less than 130 mmHg sennosides-docusate sodium [Stimulant Laxative Plus] 8.6-50 mg Tablet 2 tab PO BID PRN (Reason: CONSTIPATION ) Xarelto 20 mg tablet 20 mg PO DAILY buspirone 7.5 mg tablet 7.5 mg PO BID nitroglycerin 0.4 mg tablet, sublingual 0.4 mg SUBLINGUAL Q5-15M PRN (Reason: CHEST PAIN ) Qty: 25 1RF Primary Care Provider: Fidel Maurer Referrals: Fidel Maurer DO [Primary Care Provider] - [facility] appointment (on Sunday) Print Language: Surinamese
[2024-01-26 05:25] LABS: Absolute Lymphocyte Count 2.32 X10^3/uL (0.83-4.51); Absolute Neutrophil Count 3.9 X10^3/uL (2.0-7.7); Basophil# 0.05 X10^3/uL; Basophil% 0.7 % (0-1); Eosinophil# 0.19 X10^3/uL; Eosinophils% 2.7 % (0-5); Hematocrit 34.7 % (40-54); Hemoglobin 12.1 g/dL (13.0-16.5); Lymphocyte # 2.32 X10^3/ul (0.83-4.51); Lymphocyte % 32.7 % (19-41); Mean Corp Hgb Conc 34.9 g/dL (32-36); Mean Corpuscular Hgb 31.2 pg (27.0-32.0); Mean Corpuscular Volume 89.4 fL (80-94); Mean Platelet Vol. 9.6 fl (6.2-12.0); Monocyte# 0.64 X10^3/uL; NRBC Flagged by Analyzer 0.3 % (0-5); Neutrophil # 3.87 X10^3/uL (2.7-7.7); Neutrophil % 54.5 % (47-70); Platelet Count 288 K/mm3 (150-450); RBC Distribution Width CV 13.1 % (11.6-14.6); RBC Distribution Width SD 42.2 fl (35.1-43.9); Red Blood Count 3.88 M/mm3 (4.6-6.2); White Blood Count 7.1 K/mm3 (4.4-11.0)
[2024-01-26 05:43] LABS: Anion Gap 5 (5-15); BUN 25 mg/dL (7-18); BUN/Creat Ratio 15.3 RATIO (10-20); Calcium,Total 9.8 mg/dL (8.5-10.1); Chloride 105 mmol/L (98-107); Creatinine, Serum 1.63 mg/dL (0.70-1.30); EST Glomerular Filtration Rate 43 mL/min (>60); Est Glom Filt Rate - Afr Amer 52 mL/min (>60); Estimated Creatinine Clearance 39.87 ml/min; Glucose 107 mg/dL (74-106); Potassium 3.5 mmol/L (3.5-5.1); Sodium Level 140 mmol/L (136-145); Troponin-I HS (w/2H Reflex) 7 pg/mL (3.0-78.0)
[2024-01-26 07:20] LABS: Reflex Troponin-HS? (from REC) Y
[2024-01-26 07:48] LABS: Troponin-I HS 7 pg/mL (3.0-78.0)
== END 2024-01-26 08:21 | disposition home or self-care (01) ==
PROVIDERS: Emergency Provider Emergency Medicine; PCP Family Medicine; Visit Provider Emergency Medicine
DX: R06.00 Dyspnea, unspecified (principal); F03.90 Unspecified dementia, unspecified severity, without behavioral disturbance, psychotic disturbance, mood disturbance, and anxiety; I48.0 Paroxysmal atrial fibrillation; G47.33 Obstructive sleep apnea (adult) (pediatric); I10 Essential (primary) hypertension; F41.9 Anxiety disorder, unspecified; I25.10 Atherosclerotic heart disease of native coronary artery without angina pectoris; E78.00 Pure hypercholesterolemia, unspecified; Z95.5 Presence of coronary angioplasty implant and graft; I25.2 Old myocardial infarction; Z79.82 Long term (current) use of aspirin; E03.9 Hypothyroidism, unspecified; Z79.890 Hormone replacement therapy; Z79.899 Other long term (current) drug therapy; Z79.01 Long term (current) use of anticoagulants
CPT/HCPCS: 71045; 80048; 83880; 84484; 85025; 93005; 99283

== ENCOUNTER 2024-02-10 13:47 | Emergency (ER) | payer MEDICARE, OTHER, SELFPAY ==
[2024-02-10 13:47] VITALS: BP 127/67; PULSE 89; RESP 16; TEMP 36.8; O2SAT 97; BMI 34.2
--- NOTE | 2024-02-10 14:09 | EKG12_ITS ---
Test Reason : gen weakness Blood Pressure : */* mmHG Vent. Rate : 88 BPM Atrial Rate : 88 BPM P-R Int : 134 ms QRS Dur : 60 ms QT Int : 350 ms P-R-T Axes : * -4 1 degrees QTcB Int : 423 ms Normal sinus rhythm Low voltage QRS Inferior infarct , age undetermined Cannot rule out Anterior infarct Abnormal ECG Confirmed by Trenton Rubalcava ([id number]), slot editor FELIPE ROMERO ([id number]) on 02/11/2024 9:21:22 AM Referred By: Confirmed By: Trenton Rubalcava
--- NOTE | 2024-02-10 14:12 | EDS_ITS ---
HPI History of Present Illness Chief Complaint: General Illness Informant: patient and spouse/S.O. Onset/Context/Timing Onset: Month(s) Context: Gradual Onset Timing: Intermittent Current Severity: Mild Maximum Severity: Mild Narrative Narrative: 83-year-old gentleman history of mild dementia, hypertension, A-fib, CAD with a stent. On both aspirin and Xarelto. states that he has had intermittent episodes of shortness of breath and feeling of urgency when he has a bowel movement. But sometimes he cannot go. She has had intermittent episodes where he just shakes. She denies any history of GI bleed. He has had no chest pain. No fever nor chills nor significant cough. No leg swelling. He denies any m elanotic stool or gross blood. 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 Myocardial infarct, old Abnormal nuclear stress test Shortness of breath PVD (peripheral vascular disease) Obesity (BMI 35.0-39.9 without comorbidity) Hypothyroidism Home Medications ?Medication ?Instructions ?Recorded ?Last Taken ?Type aspirin 81 mg chewable tablet 81 mg PO DAILY@0800 HEART HEALTH 01/31/16 Unknown History carvedilol 6.25 mg tablet 6.25 mg PO BID HEART 01/31/16 Unknown History levothyroxine 88 mcg tablet 88 mcg PO DAILY THYROID 01/31/16 Unknown History light mineral oil 1 %-mineral oil 1 drp ophthalmic (eye) DAILY PRN 09/29/21 Unknown History 4.5 % eye drops (Soothe XP) DRY EYE RELIEF rosuvastatin 20 mg tablet 20 mg PO DAILY CHOLESTEROL 08/17/23 Unknown History nitroglycerin 0.4 mg sublingual 0.4 mg sublingual Q5-15M PRN CHEST 10/10/23 Unknown Rx tablet PAIN #25 tabs calcium 600 mg (as 2 tab PO BID SUPPLEMENT 01/08/24 Unknown History carbonate)-vitamin D3 20 mcg (800 unit) tablet (Caltrate with Vitamin D3) furosemide 40 mg tablet 40 mg PO BIDCM EDEMA 30 days #60 01/10/24 Unknown Rx tabs lisinopril 20 mg tablet 20 mg PO QPM BLOOD PRESSURE #180 01/10/24 Unknown Rx tabs rivaroxaban 20 mg tablet (Xarelto) 20 mg PO DAILY BLOOD THINNER 01/14/24 Unknown History sennosides 8.6 mg-docusate sodium 2 tab PO BID PRN CONSTIPATION 01/14/24 Unknown History 50 mg tablet (Stimulant Laxative Plus) buspirone 7.5 mg tablet 7.5 mg PO BID 01/26/24 Unknown History Allergy/AdvReac Type Severity Reaction Status Date / Time No Known Allergies Allergy Verified 02/10/24 13:50 Family History Father CAD (coronary artery disease) Colon cancer Hypertension Mother CAD (coronary artery disease) CVA (cerebral vascular accident) Brother CAD (coronary artery disease) Brother COPD (chronic obstructive pulmonary disease) Surgical History History of basal cell carcinoma excision History of cataract surgery History of neck surgery History of shoulder surgery History of right-sided carotid endarterectomy (~06/2012) History of cardiac radiofrequency ablation (~01/2015) S/P PTCA (percutaneous transluminal coronary angioplasty) (~01/11/11) Social History household members: spouse Smoking Status: Never smoker alcohol intake: never substance use type: does not use caffeine: No what type of physical activity do you participate in: none seatbelt use: always do you feel safe at home: Yes ROS ROS ED ROS Narrative Subjective shortness of breath. Constitutional Constitutional ED: Denies chills or fever(s) Eyes Eyes: Denies blurry vision ENT ENT ED: Denies ear pain Cardiovascular Cardiovascular: Denies chest pain or orthopnea Respiratory/Chest Respiratory/Chest: Reports dyspnea; Denies cough, dyspnea on exertion, orthopnea or sputum Gastrointestinal Gastrointestinal: Denies abdominal pain, constipation, diarrhea, melena, nausea or vomiting Genitourinary Genitourinary ED: Denies dysuria or hematuria Musculoskeletal Musculoskeletal: Denies arthralgias or back pain Integumentary Denies abscess Neurologic Neurologic: Denies headache(s) Psychiatric Psychiatric: Denies depression Endocrine Endocrinology: Denies cold intolerance Hematologic/Lymphatic Hematologic/Lymphatic: Reports none Allergic/Immunologic Allergic/Immunologic ED: Denies mouth swelling, tongue swelling or urticaria EXAM Physical Exam Narrative Exam Narrative: Well-appearing 83-year-old male sitting upright in a chair in her room. Companied by his . Vital signs are stable and afebrile. He does not look septic toxic or in any distress. Pulse ox is 97% on room air no hypoxia. H EENT exam unremarkable. Moist membranes. Pupils round reactive light. No facial droop. Neck nontender. No lymphadenopathy. No JVD. Lungs Lear to auscultation bilaterally. Heart regular rate and rhythm rate about 90 no murmur. Chest wall and ribs nontender. Abdomen soft nontender. Moving all 4 extremities. Nontender no edema. No cords. No calf tenderness or swelling. Normal director risk strength. Normal dorsi plantarflexion. He stood up from the chair and transferred the bed without any difficulty. Patient is awake and alert. He is answering questions following commands. No focal motor deficits. Benign exam. Const Vital Signs: 02/10/24 13:47 02/10/24 14:36 Temperature 98.2 F Temperature Source Temporal Pulse Rate 89 Respiratory Rate 16 Respiratory Effort Normal Respiratory Pattern Normal Blood Pressure 127/67 H Blood Pressure Mean 87 Pulse Ox 97 Oxygen Delivery Method Room Air Positive well nourished and well developed; Negative for cachectic, contractures or unkempt General Appearance ED: well developed and NAD; Negative for unkempt, cachectic, contractures, cyanotic, diaphoretic or pallor Nutritional Appearance: Negative for cachectic HEENT Reports moist mucous membranes Negative for trauma or tenderness Eyes PERRL and EOMs intact bilaterally General Eye ED: Negative for pale conjunctiva or scleral icterus Neck no lymphadenopathy, supple and no JVD General: Negative for tenderness Lymph Lymphatic: Negative for other Chest Wall inspection of chest normal and palpation of chest normal Chest: Negative for other Resp normal respiratory effort and clear to auscultation bilaterally Effort and Inspection: Negative for retractions Auscultation: Negative for rales, rhonchi or wheezes Cardio regular rate, regular rhythm, S1 normal heart sound, S2 normal heart sound and no murmurs Rate: Negative for bradycardia or tachycardic Rhythm: Negative for abnormal rhythm GI normal to inspection, nondistended, normoactive bowel sounds, non-tender, non- distended and no masses Inspection: Negative for abdominal distention Palpation: soft; Negative for tender, guarding or rebound tenderness present Back/Spine no CVA tenderness General Back: Negative for CVA tenderness Cervical Spine: Negative for cervical spine tenderness Thoracic Spine / Upper Back: Negative for thoracic spinal tenderness or paraspinal muscle tenderness Lumbar Spine / Lower Back: Negative for lumbar spinal tenderness Extremity normal to inspection General Extremety ED: Negative for edema or tenderness General Extremity: Negative for edema Neuro CN's II-XII intact bilaterally Sensorium / Orientation: alert; Negative for orientation impaired, lethargic or stuporous Motor Exam: strength 5/5 throughout; Negative for general weakness or strength abnormal Psych mental status grossly normal Appearance: Negative for unkempt Mood & Affect: Negative for depressed or tearful Skin no rashes or lesions noted, no wounds and skin turgor normal General Skin Exam: Negative for jaundice or pallor Lesions: No lesion noted Rashes: No rashes noted Trauma: Negative for abrasion Wounds: Negative for wounds noted MDM MDM MDM Narrative Medical decision making narrative: 83-year-old gentleman with subjective dyspnea but no signs of shortness of breath on my exam. He is got clear lungs. Normal heart rate. No swelling in his legs. According his he is developing some dementia. Has had some anxiety at home. Screening labs will be obtained. If they are unremarkable cards with him being discharged home with outpatient follow-up. said has been evaluated for this several times this year without any specific diagnosis. Repeat exam patient doing well at 3 PM. History & Record Review Discussion w/independent historian: Patient and Family Additional record(s) reviewed:: Prior inpatient record, Prior outpatient record, Prior ED visit and Prior labs Lab Data Attestation: I reviewed the patient's lab results. Lab results narrative: CBC white count 9.5. H&H 11.4 and 34. Platelets 274. Consistent with prior CBCs. PT/INR of 19 and 1.7. The date electrolytes unremarkable. 7. BUN 31 creatinine 2.12. Consistent with prior chemistries. In his chronic kidney disease. Glucose 132. Troponin normal at 7. Chest x-ray unremarkable. Labs: Laboratory Results - last 24 hr 02/10/24 14:20 WBC 9.5 RBC 3.64 L Hgb 11.4 L Hct 34.0 L MCV 93.4 MCH 31.3 MCHC 33.5 RDW Std Deviation 46.2 H RDW Coeff of Rogelio 13.5 Plt Count 274 MPV 9.5 Immature Gran % (Auto) 0.400 Neut % (Auto) 64.7 Lymph % (Auto) 23.8 [place] % (Auto) 8.8 Eos % (Auto) 1.8 Baso % (Auto) 0.5 Absolute Neuts (auto) 6.1 Absolute Lymphs (auto) 2.26 Nucleated RBC % 0 PT 19.5 H INR 1.7 Sodium 138 Potassium 3.9 Chloride 101 Carbon Dioxide 30.0 Anion Gap 7 BUN 31 H Creatinine 2.12 H Estim Creat Clear Calc 30.65 Est GFR (MDRD) Af Amer 39 L Est GFR (MDRD) Non-Af 32 L BUN/Creatinine Ratio 14.6 Glucose 132 H Calcium 9.7 Troponin I High Sens 7 Radiography Chest X-Ray - ED: 2 View, Read by ED Physician, Heart, Lungs, Mediastinum, Bony Structures, No Acute Disease and Chronic Changes Rhythm Strip Rhythm Strip: Sinus Rhythm Rate: 88 Ectopy: None EKG Initial EKG: Attestation: I personally reviewed and interpreted this EKG as follows: Interpretation: Sinus Rhythm and No Acute Injury Pattern Comments: Normal sinus rhythm rate 88 no acute signs of MA or ischemia. Discharge Plan Triage Chief Complaint: General Illness ED Provider: Rodolfo Santillan Dx/Rx/DC Orders Prescriptions: No Action Soothe XP 1-4.5 % drops 1 drp ophthalmic (eye) DAILY PRN (Reason: DRY EYE RELIEF) rosuvastatin 20 mg tablet 20 mg PO DAILY carvedilol 6.25 MG tablet 6.25 mg PO BID levothyroxine 88 MCG tablet 88 mcg PO DAILY aspirin 81 MG tablet,chewable 81 mg PO DAILY@0800 calcium carbonate-vitamin D3 [Caltrate with Vitamin D3] 600 mg-20 mcg (800 unit) tablet 2 tab PO BID furosemide 40 mg tablet 40 mg PO BIDCM 30 Days Qty: 60 2RF lisinopril 20 mg tablet 20 mg PO QPM Qty: 180 3RF Rx Instructions: Hold for SBP less than 130 mmHg sennosides-docusate sodium [Stimulant Laxative Plus] 8.6-50 mg Tablet 2 tab PO BID PRN (Reason: CONSTIPATION ) Xarelto 20 mg tablet 20 mg PO DAILY buspirone 7.5 mg tablet 7.5 mg PO BID nitroglycerin 0.4 mg tablet, sublingual 0.4 mg SUBLINGUAL Q5-15M PRN (Reason: CHEST PAIN ) Qty: 25 1RF Primary Care Provider: Fidel Maurer Referrals: Fidel Maurer DO [Primary Care Provider] - Print Language: Frisian
[2024-02-10 14:28] LABS: Absolute Lymphocyte Count 2.26 X10^3/uL (0.83-4.51); Absolute Neutrophil Count 6.1 X10^3/uL (2.0-7.7); Basophil# 0.05 X10^3/uL; Basophil% 0.5 % (0-1); Eosinophil# 0.17 X10^3/uL; Eosinophils% 1.8 % (0-5); Hemoglobin 11.4 g/dL (13.0-16.5); Lymphocyte # 2.26 X10^3/ul (0.83-4.51); Lymphocyte % 23.8 % (19-41); Mean Corp Hgb Conc 33.5 g/dL (32-36); Mean Corpuscular Hgb 31.3 pg (27.0-32.0); Mean Corpuscular Volume 93.4 fL (80-94); Mean Platelet Vol. 9.5 fl (6.2-12.0); Monocyte# 0.83 X10^3/uL; Monocyte% 8.8 % (0-10); NRBC Flagged by Analyzer 0 % (0-5); Neutrophil # 6.13 X10^3/uL (2.7-7.7); Neutrophil % 64.7 % (47-70); Platelet Count 274 K/mm3 (150-450); RBC Distribution Width CV 13.5 % (11.6-14.6); RBC Distribution Width SD 46.2 fl (35.1-43.9); Red Blood Count 3.64 M/mm3 (4.6-6.2); White Blood Count 9.5 K/mm3 (4.4-11.0)
[2024-02-10 14:37] LABS: International Normalized Ratio 1.7; Prothrombin Time (Protime)PT. 19.5 SECONDS (11.7-14.9)
--- NOTE | 2024-02-10 14:40 | ED.RN ---
at bedside and reports that pt past few weeks with need to freq try and move bowels and mostly not being sucessful but when does is dark black color stated, were both just worn out. he just lays on the [place] and gets up and down up and down. i have to help him because he has dementia and his arms are short and sometimes needs help wiping' also with mirad of other c/o about pt. denies lack of copacity to care of self and in home but c/o new 'shakes pt has now, and sob and that does not wear his cpap now. pt seemingly more cognisant than but looks for answers when assessment done. denies any pain or nausea. no diarrhea. no cough other than dry baseline for. no real obs tremors when hands outstretched. seemingly annoyed that not displaying for here.
[2024-02-10 14:44] LABS: Anion Gap 7 (5-15); BUN 31 mg/dL (7-18); BUN/Creat Ratio 14.6 RATIO (10-20); Calcium,Total 9.7 mg/dL (8.5-10.1); Chloride 101 mmol/L (98-107); Creatinine, Serum 2.12 mg/dL (0.70-1.30); EST Glomerular Filtration Rate 32 mL/min (>60); Est Glom Filt Rate - Afr Amer 39 mL/min (>60); Estimated Creatinine Clearance 30.65 ml/min; Glucose 132 mg/dL (74-106); Potassium 3.9 mmol/L (3.5-5.1); Sodium Level 138 mmol/L (136-145); Troponin-I HS 7 pg/mL (3.0-78.0)
--- NOTE | 2024-02-10 14:50 | RAD_ITS ---
INDICATION: subjective dyspnea EXAMINATION/TECHNIQUE: X-RAY - XR Chest 2 Views COMPARISON: January 26, 2024 FINDINGS: LINES/DEVICES: None. LUNGS: No consolidation, edema or effusion. No pneumothorax. MEDIASTINUM AND CARDIOVASCULAR STRUCTURES: Cardiac silhouette not enlarged. Central airways and mediastinal contour are unremarkable. BONES AND SOFT TISSUES: Unremarkable. RAD/Chest PA and Lateral IMPRESSION: No radiographic evidence of acute cardiopulmonary disease. Electronically Signed: Stephy Santana MD at 15:30 EST ,
[2024-02-10 15:35] VITALS: BP 100/61; PULSE 89; RESP 16; TEMP 36.8; O2SAT 97
== END 2024-02-10 15:36 | disposition home or self-care (01) ==
PROVIDERS: Emergency Provider Emergency Medicine; PCP Family Medicine; Visit Provider Emergency Medicine
DX: R06.02 Shortness of breath (principal); I48.0 Paroxysmal atrial fibrillation; I25.10 Atherosclerotic heart disease of native coronary artery without angina pectoris; E78.00 Pure hypercholesterolemia, unspecified; I10 Essential (primary) hypertension; Z95.5 Presence of coronary angioplasty implant and graft; Z79.82 Long term (current) use of aspirin; Z79.01 Long term (current) use of anticoagulants; I25.2 Old myocardial infarction; E03.9 Hypothyroidism, unspecified; Z79.890 Hormone replacement therapy; Z79.899 Other long term (current) drug therapy; Z85.828 Personal history of other malignant neoplasm of skin
CPT/HCPCS: 71046; 80048; 84484; 85025; 85610; 93005; 99283; A4216

== ENCOUNTER → 2024-02-14 | Outpatient (CLI) | payer MEDICARE, OTHER, SELFPAY | END | disposition home or self-care (01) | PROVIDERS: PCP Family Medicine; Referring Provider Family Medicine; Visit Provider Family Medicine | DX: K59.04 Chronic idiopathic constipation (principal) | CPT/HCPCS: 74018 ==

== ENCOUNTER → 2024-02-28 | Outpatient (CLI) | payer MEDICARE, OTHER, SELFPAY ==
[2024-02-28 15:23] LABS: Anion Gap 5 (5-15); BUN 40 mg/dL (7-18); Calcium,Total 10.2 mg/dL (8.5-10.1); Chloride 104 mmol/L (98-107); Creatinine, Serum 1.67 mg/dL (0.70-1.30); EST Glomerular Filtration Rate 42 mL/min (>60); Est Glom Filt Rate - Afr Amer 51 mL/min (>60); Glucose 118 mg/dL (74-106); Potassium 4.5 mmol/L (3.5-5.1); Sodium Level 140 mmol/L (136-145)
== END | disposition home or self-care (01) ==
LOC: BFHLAB 13:29
PROVIDERS: PCP Family Medicine; Referring Provider Family Medicine; Visit Provider Family Medicine
DX: N18.32 Chronic kidney disease, stage 3b (principal)
CPT/HCPCS: 36415; 80048

== ENCOUNTER 2024-03-06 06:55 | Inpatient (IN) | payer MEDICARE, OTHER, SELFPAY ==
[2024-03-06] VITALS (16 sets, daily range): BP systolic 92–128; BP diastolic 36–93; PULSE 61–81; RESP 16–21; TEMP 36.3–36.6; O2SAT 98–100; BMI 33.9; BMI 32.9
[2024-03-06 07:54] LABS: Absolute Lymphocyte Count 2.37 X10^3/uL (0.83-4.51); Absolute Neutrophil Count 5.7 X10^3/uL (2.0-7.7); Basophil# 0.05 X10^3/uL; Basophil% 0.6 % (0-1); Eosinophil# 0.09 X10^3/uL; Hematocrit 18.7 % (40-54); Hemoglobin 6.1 g/dL (13.0-16.5); Lymphocyte # 2.37 X10^3/ul (0.83-4.51); Lymphocyte % 26.8 % (19-41); Mean Corp Hgb Conc 32.6 g/dL (32-36); Mean Corpuscular Hgb 30.7 pg (27.0-32.0); Mean Platelet Vol. 9.9 fl (6.2-12.0); Monocyte# 0.53 X10^3/uL; NRBC Flagged by Analyzer 0.2 % (0-5); Neutrophil # 5.73 X10^3/uL (2.7-7.7); Neutrophil % 64.9 % (47-70); Platelet Count 310 K/mm3 (150-450); RBC Distribution Width CV 13.5 % (11.6-14.6); RBC Distribution Width SD 45.3 fl (35.1-43.9); Red Blood Count 1.99 M/mm3 (4.6-6.2); White Blood Count 8.8 K/mm3 (4.4-11.0)
[2024-03-06 08:12] LABS: AST(SGOT) 10 U/L (15-37); Alanine Aminotransfer ALT/SGPT 19 U/L (16-61); Albumin, Serum 3.1 g/dL (3.2-5.0); Alkaline Phosphatase 73 U/L (45-117); Anion Gap 10 (5-15); BUN 50 mg/dL (7-18); BUN/Creat Ratio 23.8 RATIO (10-20); Bilirubin, Direct 0.11 mg/dL (0.00-0.30); Calcium,Total 9.5 mg/dL (8.5-10.1); Chloride 100 mmol/L (98-107); EST Glomerular Filtration Rate 32 mL/min (>60); Est Glom Filt Rate - Afr Amer 39 mL/min (>60); Estimated Creatinine Clearance 30.25 ml/min; Globulin 2.8 g/dL (2.2-4.2); Glucose 169 mg/dL (74-106); Lipase 37 U/L (13-75); Potassium 3.7 mmol/L (3.5-5.1); Protein, Total 5.9 g/dL (6.4-8.2); Sodium Level 138 mmol/L (136-145); Troponin-I HS 8 pg/mL (3.0-78.0)
[2024-03-06] MEDS: Pantoprazole Sodium 80 MG in 0.9% Normal Saline (50mL Bag) 15 ML 420 MG IV BOLUS (09:37)
[2024-03-06] MEDS: Pantoprazole Sodium 80 MG in 0.9% Normal Saline (100mL Bag) 80 ML 10 MG CONT INF ×2 (09:38→17:50)
[2024-03-06] MEDS: 0.9% Saline Lock 10 ML Syringe IV ×3 (12:06→19:58)
[2024-03-06 12:16] LABS: Bacteria 0 SEEN /hpf (None Seen); Mucous, Urine 0 SEEN /hpf (<or=2+); Red Blood Cells-Urine 0 SEEN /hpf (0-5); Squamous Epithelial Cells - UA 0 SEEN /hpf (0-5); White Blood Cells 0 SEEN /hpf (0-5)
[2024-03-06 12:20] LABS: Color, Urine Yellow (Yellow); Glucose, Dipstick Normal (Normal); Ketone-Dipstick Negative (Negative); Leukocyte Esterase-Dipstick Negative /ul (Negative); Nitrite-Dipstick Negative (Negative); Occult Blood-Urine Negative /ul (Negative); Protein-Dipstick 15 mg/dl (Negative); Specific Gravity, Urine 1.015 (1.002-1.030); Urine Bilirubin Dipstick Negative (Negative); Urine Clarity Clear (Clear); Urine Urobilinogen Normal (Normal)
[2024-03-06] MEDS: 0.9% Normal Saline (1000mL) 1,000 ML 125 ML IV (13:20)
[2024-03-06] MEDS: Acetaminophen 325 MG Tablet 650 MG PO (13:22)
[2024-03-06] MEDS: Donepezil HCl 5 MG Tablet PO (20:37)
[2024-03-06] MEDS: Calcium Carb/Vitamin D 1 TABLET Tablet 2 TABLET PO (20:37)
[2024-03-06] MEDS: LORazepam 0.5 MG Tablet PO (20:37)
[2024-03-06] MEDS: busPIRone 5 MG Tablet 7.5 MG PO (20:37)
[2024-03-07] VITALS (9 sets, daily range): BP systolic 93–128; BP diastolic 49–67; PULSE 61–68; RESP 14–18; TEMP 36.1–36.7; O2SAT 96–99; BMI 32.9
[2024-03-07] MEDS: 0.9% Normal Saline (1000mL) 1,000 ML 125 ML IV (03:58)
[2024-03-07] MEDS: Pantoprazole Sodium 80 MG in 0.9% Normal Saline (100mL Bag) 80 ML 10 MG CONT INF (03:59)
[2024-03-07 06:33] LABS: Absolute Lymphocyte Count 1.38 X10^3/uL (0.83-4.51); Absolute Neutrophil Count 4.4 X10^3/uL (2.0-7.7); Basophil# 0.05 X10^3/uL; Basophil% 0.8 % (0-1); Eosinophil# 0.09 X10^3/uL; Eosinophils% 1.4 % (0-5); Hematocrit 23.1 % (40-54); Hemoglobin 7.5 g/dL (13.0-16.5); Lymphocyte # 1.38 X10^3/ul (0.83-4.51); Mean Corp Hgb Conc 32.5 g/dL (32-36); Mean Corpuscular Hgb 29.5 pg (27.0-32.0); Mean Corpuscular Volume 90.9 fL (80-94); Mean Platelet Vol. 9.5 fl (6.2-12.0); Monocyte# 0.62 X10^3/uL; Monocyte% 9.4 % (0-10); NRBC Flagged by Analyzer 0.5 % (0-5); Neutrophil # 4.37 X10^3/uL (2.7-7.7); Neutrophil % 66.3 % (47-70); Platelet Count 236 K/mm3 (150-450); RBC Distribution Width CV 14.8 % (11.6-14.6); RBC Distribution Width SD 48.9 fl (35.1-43.9); Red Blood Count 2.54 M/mm3 (4.6-6.2); White Blood Count 6.6 K/mm3 (4.4-11.0)
[2024-03-07 06:46] LABS: International Normalized Ratio 1.5
[2024-03-07 07:01] LABS: Anion Gap 3 (5-15); BUN 38 mg/dL (7-18); BUN/Creat Ratio 23.2 RATIO (10-20); Calcium,Total 8.7 mg/dL (8.5-10.1); Chloride 110 mmol/L (98-107); Creatinine, Serum 1.64 mg/dL (0.70-1.30); EST Glomerular Filtration Rate 43 mL/min (>60); Est Glom Filt Rate - Afr Amer 52 mL/min (>60); Estimated Creatinine Clearance 38.86 ml/min; Glucose 124 mg/dL (74-106); Potassium 4.1 mmol/L (3.5-5.1); Sodium Level 142 mmol/L (136-145)
[2024-03-07] MEDS: Calcium Carb/Vitamin D 1 TABLET Tablet 2 TABLET PO (10:16)
[2024-03-07] MEDS: Loratadine 10 MG Tablet PO (10:16)
[2024-03-07] MEDS: busPIRone 5 MG Tablet 7.5 MG PO (12:25)
== END 2024-03-07 15:40 | disposition home or self-care (01) | DRG 378 ==
LOC: ED 09:32 → PCU 09:51
PROVIDERS: Anesthesiology; Internal Medicine Gastroenterology; Admitting Provider Student in an Organized Health Care Education/Training Program; Emergency Provider Emergency Medicine; PCP Family Medicine; Visit Provider Student in an Organized Health Care Education/Training Program
PROC: 0DJ08ZZ Inspection of Upper Intestinal Tract, Via Natural or Artificial Opening Endoscopic (ICD-10-PCS; CPT 43235; principal; 2024-03-07 09:55)
DX: K92.2 Gastrointestinal hemorrhage, unspecified (principal); N17.9 Acute kidney failure, unspecified; I50.20 Unspecified systolic (congestive) heart failure; D62 Acute posthemorrhagic anemia; I11.0 Hypertensive heart disease with heart failure; F03.90 Unspecified dementia, unspecified severity, without behavioral disturbance, psychotic disturbance, mood disturbance, and anxiety; E03.9 Hypothyroidism, unspecified; K25.9 Gastric ulcer, unspecified as acute or chronic, without hemorrhage or perforation; I48.0 Paroxysmal atrial fibrillation; I25.10 Atherosclerotic heart disease of native coronary artery without angina pectoris; I95.9 Hypotension, unspecified; E78.00 Pure hypercholesterolemia, unspecified; I25.2 Old myocardial infarction; Z80.0 Family history of malignant neoplasm of digestive organs; Z95.5 Presence of coronary angioplasty implant and graft; Z79.82 Long term (current) use of aspirin; Z79.84 Long term (current) use of oral hypoglycemic drugs; Z79.899 Other long term (current) drug therapy
CPT/HCPCS: 71045; 80048; 80076; 81001; 82274; 83690; 84443; 84484; 85025; 85610; 85730; 86850; 86900; 86901; 86920; 86921; 86922; 87631; 88305; 88342; 93005; 97162; 97166; 97802; 99285; J7030; P9016; A4216; J2405; J3490

== ENCOUNTER → 2024-03-12 | Outpatient (CLI) | payer MEDICARE, OTHER, SELFPAY ==
[2024-03-12 12:35] LABS: Absolute Lymphocyte Count 1.39 X10^3/uL (0.83-4.51); Absolute Neutrophil Count 5.9 X10^3/uL (2.0-7.7); Anion Gap 7 (5-15); BUN 9 mg/dL (7-18); BUN/Creat Ratio 7.5 RATIO (10-20); Basophil# 0.04 X10^3/uL; Basophil% 0.5 % (0-1); Calcium,Total 8.9 mg/dL (8.5-10.1); Chloride 106 mmol/L (98-107); EST Glomerular Filtration Rate 62 mL/min (>60); Eosinophils% 2.4 % (0-5); Est Glom Filt Rate - Afr Amer 75 mL/min (>60); Glucose 110 mg/dL (74-106); Hematocrit 25.3 % (40-54); Hemoglobin 8.1 g/dL (13.0-16.5); Lymphocyte # 1.39 X10^3/ul (0.83-4.51); Mean Corpuscular Hgb 29.1 pg (27.0-32.0); Mean Platelet Vol. 10.2 fl (6.2-12.0); Monocyte# 0.61 X10^3/uL; Monocyte% 7.5 % (0-10); NRBC Flagged by Analyzer 0 % (0-5); Neutrophil # 5.91 X10^3/uL (2.7-7.7); Neutrophil % 72.2 % (47-70); POSITIVE COUNT YES; Platelet Count 300 K/mm3 (150-450); Potassium 3.8 mmol/L (3.5-5.1); RBC Distribution Width CV 13.5 % (11.6-14.6); RBC Distribution Width SD 44.7 fl (35.1-43.9); Red Blood Count 2.78 M/mm3 (4.6-6.2); Sodium Level 138 mmol/L (136-145); White Blood Count 8.2 K/mm3 (4.4-11.0)
[2024-03-12 13:37] LABS: Differential Comment SCANNED; Differential Indicated SCAN CRITERIA MET
== END | disposition home or self-care (01) ==
LOC: BFHLAB 10:55
PROVIDERS: PCP Family Medicine; Visit Provider Family Medicine
DX: D64.9 Anemia, unspecified (principal); N17.9 Acute kidney failure, unspecified
CPT/HCPCS: 36415; 80048; 85025

== ENCOUNTER 2024-03-17 10:15 | Day surgery (SDC) | payer MEDICARE, OTHER, SELFPAY ==
[2024-03-17] VITALS (8 sets, daily range): BP systolic 92–123; BP diastolic 48–74; PULSE 69–80; RESP 16–18; TEMP 36.1–36.7; O2SAT 95–99; BMI 34.2
--- NOTE | 2024-03-17 11:05 | HP.PCM_ITS ---
History and Physical Date of Admission: 03/17/24 Chief Complaint: hospital f/u Details: CYNTHIA MANDUJANO, is a 83 M who presents to the office today for hospital f/u. [facility] admission 03.06.24-03.07.24 with acute UGIB. Hemoglobin dropping to as low as 6.1. Underwent blood transfusion. EGD showing gastric ulcers. Hgb 7.5 upon discharge. Sent home with PPI BID and sucralfate. OV 03.13.24 Pt continues to have dark black tarry stools. Pt and brother help provide the hx. Prior to his admission he was having constipation which was abnormal. His PCP gave him a bowel prep which is when the black and tarry stool all started which was a month and a half ago. Pt is not taking any iron supplementation. He is feeling very weak and fatigued. EGD 03.07.24; - Normal esophagus. - Non-bleeding gastric ulcers with no stigmata of bleeding. Biopsied. - No gross lesions in the first portion of the duodenum. ROS Const Constitutional: Positive for fatigue; No fever(s) or weight change ENT ENT: No difficulty swallowing Gastro GI: Positive for Blood in stool and Black,tarry stools; No abdominal pain, belching, bloating, change in bowel habits, change in stool character, coffee ground emesis, constipation, cramping, diarrhea, heartburn, difficulty swallowing, feeling full early, excessive flatus, incontinent of stools, Vomiting blood/hematemesis, loose stools, nausea/dyspepsia, pain with swallowing, vomiting or other Musc Musculoskeletal: No joint pain Skin Skin: No yellowing of the eye or itchy eyes Psych Psychiatric: No anxiety and No depression Endo Endocrine: Positive for fatigue; No weight change Aller/Imm Allergy/Immunologic: No itchy eyes Collins/Lymp Hematologic/Lymphatic: No easy bleeding or easy bruising Assessment and Plan Assessment and Plan (1) Anemia: Status: Acute Plan: This is an 83 yo male pt who was admitted to [facility] 03.06.24-03.07.25 w/ GI bleed. He underwent EGD which showed gastric ulcers. Since then he as continued with black and tarry stools. His hemoglobin is however up trending from 7.5 to 8.1. He continues to have weakness. He will be scheduled for colonoscopy to rule out other etiology of GI bleeding. I will also order weekly CBC and stool occult blood test. He will continue PPI and sucralfate therapy in the mean time. -Colonoscopy -Weekly CBC -FOBT -f/u following procedure (2) Gastric ulcer: Status: Acute Orders: Orders CBC W/Diff, Automated 5 Days D64.9 - Anemia, unspecified Stool Occult Blood iFOB Today D64.9 - Anemia, unspecified \
--- NOTE | 2024-03-17 11:11 | PRE.ANES_ITS ---
ASA Classification* ASA Classification ASA Classification: 3 Assessment & Plan Anesthesia* Anesthesia Assessment Anesthesia Assessment: Discussed sedation and/or anesthesia options, risks, benefits, and alternatives with patient/parents/legal guardian/POA. Questions invited. The patient/parents/legal guardian/POA seems to understand and agrees to proceed with anesthesia plan. Reviewed the physical assessment, medical history, allergy history and patient home medications list prior to surgery/procedure/anesthetic and documented any changes. Performed airway and anesthesia risk assessments. Anesthesia Type Anesthesia Type: MAC History Source History Obtained from:: Patient and Chart Anesthesia Focused Assessment* Temperature: 97.0 F Pulse Rate: 75 Blood Pressure: 114/59 Respiratory Rate: 16 Pulse Ox: 95 Oxygen Delivery Method: Room Air Airway Assessment Mouth opens: >3 cm Mallampati Score: IV Teeth Condition: Partial and Upper (Patient has upper permanent bridge.) Neck Range of motion (ROM): Limited ROM (Slight decreased extension) Focused Labs Anesthesia Preop lab: CBC WBC 8.2 K/mm3 (4.4-11.0) 03/12/24 10:57 RBC 2.78 M/mm3 (4.6-6.2) L 03/12/24 10:57 Hgb 8.1 g/dL (13.0-16.5) L 03/12/24 10:57 Hct 25.3 % (40-54) L 03/12/24 10:57 Plt Count 300 K/mm3 (150-450) 03/12/24 10:57 CHEMISTRY Potassium 3.8 mmol/L (3.5-5.1) 03/12/24 10:57 Sodium 138 mmol/L (136-145) 03/12/24 10:57 Magnesium 1.9 mg/dL (1.6-2.6) 01/08/24 22:09 BUN 9 mg/dL (7-18) 03/12/24 10:57 Creatinine 1.20 mg/dL (0.70-1.30) 03/12/24 10:57 Glucose 110 mg/dL (74-106) H 03/12/24 10:57 TSH 1.760 uIU/mL (0.358-3.740) 03/07/24 05:55 COAG PT 18.0 SECONDS (11.7-14.9) H 03/07/24 05:55 Pre-Assessment Diagnosis/Proposed Procedure Planned Operative Procedure(s): cscope Anesthesia History 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 When Was Last Pacemaker Check QUESTION #4 FULL TEXT: You/Your Family Experience fever (hyperthermia) with Anesthesia Last Oral Intake Last Oral intake: Last Oral Intake NPO since 08:00 03/17/24 10:51 Meds taken in AM with sips of water? Meds patient instructed to take am of surgery Any additional information?: Yes NPO since: 08:00 (Patient finished prep at 8 AM.) Meds taken in AM with sips of water?: Yes PONV PONV - coatings inspector: PONV - coatings inspector Female No 03/13/24 14:33 HX of Motion Sickness No 03/13/24 14:33 HX of N/V After Surgery No 03/13/24 14:33 Non-Smoker Yes 03/13/24 14:33 Duration of Surgery greater No 03/13/24 14:33 than 60 minutes Number of Risk Factors 1 03/13/24 14:33 PONV Score Low Risk 03/13/24 14:33 Height & Weight Height & Weight: Anesthesia: Height & Weight Height 5 ft 7 in 03/17/24 10:51 Weight: 99.337 kg 03/17/24 10:51 Body Mass Index (BMI) 34.2 03/17/24 10:51 Respiratory Assessment Respiratory Assessment - coatings inspector: Respiratory Tract Infection Hx - coatings inspector Hx Respiratory Tract Infection No 03/13/24 14:33 STOP Sleep Apnea STOP Sleep Apnea - coatings inspector: STOP Sleep Apnea - coatings inspector Hx Hypertension Yes: controlled with med 03/13/24 14:33 Hx Sleep Apnea Yes 03/13/24 14:33 CPAP Yes 03/13/24 14:33 BIPAP No 03/13/24 14:33 Do you snore loudly (louder than talking or can be heard Do you often feel tired/ fatigued/ sleepy during daytime? Has anyone observed you stop breathing during sleep? STOP Results Positive 03/13/24 14:33 QUESTION #5 FULL TEXT : Do you snore loudly (louder than talking or can be heard through closed doors)? 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 Specify any problems Hx of Preganancy in last 3 N/A 03/13/24 14:33 Months Nurse Filling Out Transfusion NBUCHER 03/13/24 14:33 & Questions: Date: 03/13/24 03/13/24 14:33 Time: 14:36 03/13/24 14:33 Patient unable to answer at this time (ie. confused, unrespo /Reproduction History /Reproductive History - coatings inspector: /Reproductive Hx- coatings inspector Hx Now Gestational Age (in weeks): EDC: Hx Hx Para Hx Section SAB No 03/13/24 14:33 [facility] Medical History Wears glasses Thyroid disease Arthritis History of GI bleed Non-smoker CPAP (continuous positive airway pressure) dependence Sleep apnea Shortness of breath on exertion History of stress test History of echocardiogram History of edema Cardiology follow-up encounter History of heart attack (~2010) Anticoagulated Dementia Contact with and (suspected) exposure to other viral communicable diseases Acute bronchitis, unspecified PVD (peripheral vascular disease) Pure hypercholesterolemia Presence of stent in coronary artery (~01/11/11) Essential hypertension Atherosclerotic heart disease of [place] coronary artery without angina pectoris Paroxysmal atrial fibrillation Stenosis of right carotid artery Obstructive sleep apnea Other fci (current) drug therapy Myocardial infarct, old Abnormal nuclear stress test Shortness of breath PVD (peripheral vascular disease) Obesity (BMI 35.0-39.9 without comorbidity) Hypothyroidism Home Medications ?Medication ?Instructions ?Recorded ?Last Taken ?Type carvedilol 6.25 mg tablet 6.25 mg PO BID HEART 01/31/16 03/17/24 History levothyroxine 88 mcg tablet 88 mcg PO DAILY THYROID 01/31/16 03/17/24 History light mineral oil 1 %-mineral oil 1 drp ophthalmic (eye) DAILY PRN 09/29/21 Unknown History 4.5 % eye drops (Soothe XP) DRY EYE RELIEF rosuvastatin 20 mg tablet 20 mg PO DAILY CHOLESTEROL 08/17/23 Unknown History nitroglycerin 0.4 mg sublingual 0.4 mg sublingual Q5-15M PRN CHEST 10/10/23 Unknown Rx tablet PAIN #25 tabs calcium 600 mg (as 2 tab PO BID SUPPLEMENT 01/08/24 Unknown History carbonate)-vitamin D3 20 mcg (800 unit) tablet (Caltrate with Vitamin D3) furosemide 40 mg tablet 40 mg PO BIDCM EDEMA 30 days #60 01/10/24 Unknown Rx tabs sennosides 8.6 mg-docusate sodium 2 tab PO BID PRN CONSTIPATION 01/14/24 Unknown History 50 mg tablet (Stimulant Laxative Plus) calcium 600 mg (as 2 tab PO BID Supplement 03/06/24 Unknown History carbonate)-vitamin D3 20 mcg (800 unit) tablet (Caltrate with Vitamin D3) cetirizine 10 mg capsule (All Day 10 mg PO DAILY Allergies 03/06/24 Unknown History Allergy (cetirizine)) lorazepam 0.5 mg tablet 0.5 mg PO BID PRN Anxiety 03/06/24 03/17/24 History meclizine 25 mg tablet 25 mg PO TID PRN PRN dizziness 03/06/24 Unknown History pantoprazole 40 mg tablet,delayed 40 mg PO BID #60 tabs 03/07/24 03/17/24 Rx release sucralfate 1 gram tablet 1 g PO Q6H 42 days #168 tabs 03/07/24 Unknown Rx Allergy/AdvReac Type Severity Reaction Status Date / Time No Known Allergies Allergy Verified 03/17/24 10:55 Family History Father CAD (coronary artery disease) Colon cancer Hypertension Mother CAD (coronary artery disease) CVA (cerebral vascular accident) Brother CAD (coronary artery disease) Brother COPD (chronic obstructive pulmonary disease) Surgical History History of cardiac ablation for atrial fibrillation History of coronary artery stent placement History of cardiac catheterization History of basal cell carcinoma excision History of cataract surgery History of neck surgery History of shoulder surgery History of right-sided carotid endarterectomy (~06/2012) History of cardiac radiofrequency ablation (~01/2015) S/P PTCA (percutaneous transluminal coronary angioplasty) (~01/11/11) Social History household members: spouse Smoking Status: Never smoker alcohol intake: never substance use type: does not use caffeine: No what type of physical activity do you participate in: none seatbelt use: always do you feel safe at home: Yes Review of Systems (Anesthesia) ROS Narrative System reviewed and no additional complaints, except as documented.
--- NOTE | 2024-03-17 12:21 | OP.COLON_ITS ---
Patient Name: Pedro Gann Procedure Date: 03/17/2024 11:57 AM Date of : 1940 Age: 83 Procedure: Colonoscopy Indications: Iron deficiency anemia Providers: Brennen Dyer DO Referring MD: Fidel Maurer Medicines: Monitored Anesthesia Care Patient Profile: This is an 83 year old male. Refer to note in patient chart for documentation of history and physical. Last Colonoscopy: several years ago. Complications: No immediate complications. Procedure: Pre-Anesthesia Assessment: - Prior to the procedure, a History and Physical was performed, and patient medications and allergies were reviewed. The patient is competent. The risks and benefits of the procedure and the sedation options and risks were discussed with the patient. All questions were answered and informed consent was obtained. Patient identification and proposed procedure were verified by the physician in the pre-procedure area. Mental Status Examination: alert and oriented. Airway Examination: normal oropharyngeal airway and neck mobility. Respiratory Examination: clear to auscultation. CV Examination: normal. Prophylactic Antibiotics: The patient does not require prophylactic antibiotics. Prior Anticoagulants: The patient has taken no anticoagulant or antiplatelet agents except for NSAID medication. ASA Grade Assessment: II - A patient with mild systemic disease. After reviewing the risks and benefits, the patient was deemed in satisfactory condition to undergo the procedure. The anesthesia plan was to use monitored anesthesia care (MAC). Immediately prior to administration of medications, the patient was re-assessed for adequacy to receive sedatives. The heart rate, respiratory rate, oxygen saturations, blood pressure, adequacy of pulmonary ventilation, and response to care were monitored throughout the procedure. The physical status of the patient was re-assessed after the procedure. After I obtained informed consent, the scope was passed under direct vision. Throughout the procedure, the patient's blood pressure, pulse, and oxygen saturations were monitored continuously. The Colonoscope was introduced through the anus and advanced to the cecum, identified by appendiceal orifice and ileocecal valve. The colonoscopy was performed without difficulty. The patient tolerated the procedure well. The quality of the bowel preparation was adequate. The ileocecal valve, appendiceal orifice, and rectum were photographed. Scope In: 12:06:26 PM Scope Withdrawal Time 0 hours 6 minutes 56 seconds Scope Out: 12:17:01 PM Total Procedure Duration Time 0 hours 10 minutes 35 seconds Findings: The perianal and digital rectal examinations were normal. Multiple small and large-mouthed diverticula were found in the recto-sigmoid colon, sigmoid colon, splenic flexure and ascending colon. The exam was otherwise normal throughout the examined colon. Impression: - Diverticulosis in the recto-sigmoid colon, in the sigmoid colon, at the splenic flexure and in the ascending colon. - No specimens collected. Recommendation: - Discharge patient to home. - Resume previous diet. - Continue present medications. - No repeat colonoscopy due to age. Procedure Code(s): --- Professional --- 80196, Colonoscopy, flexible; diagnostic, including collection of specimen(s) by brushing or washing, when performed (separate procedure) CPT copyright 2021 [employer] [employer]. All rights reserved. The codes documented in this report are preliminary and upon dope mixer review may be revised to meet current compliance requirements. Brennen Dyer DO 03/17/2024 12:21:21 PM This report has been signed electronically. Number of Addenda: 0 Note Initiated On: 03/17/2024 11:57 AM
--- NOTE | 2024-03-17 12:21 | OP.CCLET_ITS ---
03/17/[address] [facility] [address] Re : Colonoscopy procedure for Pedro Gann Dear Dr. Maurer This procedure was performed on Sunday, March 17, 2024. My impressions and recommendations are as follows: Impressions : - Diverticulosis in the recto-sigmoid colon, in the sigmoid colon, at the splenic flexure and in the ascending colon. - No specimens collected. Recommendations : - Discharge patient to home. - Resume previous diet. - Continue present medications. - No repeat colonoscopy due to age. My findings are described in the full procedure note, which is enclosed. If I can be of further assistance, please feel free to contact me at . Sincerely, Brennen Dyer, 03/17/2024 12:21:21 PM This report has been signed electronically.
--- NOTE | 2024-03-17 12:25 | PCM.POST.ANE ---
Anesthesia: Postop Eval I Current Vital Signs Temperature: 97 F Pulse Rate: 72 Blood Pressure: 92/48 Respiratory Rate: 16 Pulse Ox: 99 Oxygen Delivery Method: Room Air Assessment Airway patent: Yes Spontaneous unlabored respirations: Yes nausea: No Vomiting: No Anesthesia Complication: No Fluid Hydration Crystalloid volume administer (ml): 40 Total IV fluid infused: 40 Progress Note Anesthesia document: Postop Eval 1 completed: Yes
--- NOTE | 2024-03-17 17:51 | PCM.POSTANE2 ---
Anesthesia Postop Eval I Sum Postop Eval Completion status Anesthesia document: Postop Eval 1 completed: Yes Anesthesia Postop Eval I Summary Anesthesia Postop Eval I Summary: Anesthesia Postop Eval I: Assessment Summary Airway patent Yes 03/17/24 12:26 [email or web address] Spontaneous unlabored Yes 03/17/24 12:26 [email or web address] respirations Mental status nausea No 03/17/24 12:26 [email or web address] Vomiting No 03/17/24 12:26 [email or web address] Anesthesia Postop Eval I: Fluid Summary Crystalloid volume administer 40 03/17/24 12:26 [email or web address] (ml) Colloids volume administered ( ml) Blood Product volume administered (ml) Total IV fluid infused 40 03/17/24 12:26 [email or web address] Anesthesia Postop Eval I: Summary Notes Anesthesia Complication No 03/17/24 12:26 [email or web address] Anesthesia Complication Comment: Post-operative progress note Anesthesia: Postop Eval II Evaluation Mental status: Awake Pain Level: 0 nausea: No Vomiting: No
== END 2024-03-17 13:02 | disposition home or self-care (01) ==
LOC: EN 10:18 → AC 10:18
PROVIDERS: PCP Family Medicine; Referring Provider Family Medicine; Visit Provider Internal Medicine Gastroenterology
PROC: 0DJD8ZZ Inspection of Lower Intestinal Tract, Via Natural or Artificial Opening Endoscopic (ICD-10-PCS; CPT 45378; principal; 2024-03-17 11:25)
DX: D64.9 Anemia, unspecified (principal); K57.30 Diverticulosis of large intestine without perforation or abscess without bleeding; K25.3 Acute gastric ulcer without hemorrhage or perforation
CPT/HCPCS: 45378; A4216; J2405

== ENCOUNTER → 2024-03-20 | Outpatient (CLI) | payer MEDICARE, OTHER, SELFPAY ==
[2024-03-20 17:44] LABS: Absolute Neutrophil Count 3.7 X10^3/uL (2.0-7.7); Basophil# 0.07 X10^3/uL; Eosinophil# 0.26 X10^3/uL; Eosinophils% 3.8 % (0-5); Hematocrit 29.9 % (40-54); Hemoglobin 9.5 g/dL (13.0-16.5); Mean Corp Hgb Conc 31.8 g/dL (32-36); Mean Corpuscular Hgb 27.5 pg (27.0-32.0); Mean Corpuscular Volume 86.4 fL (80-94); Mean Platelet Vol. 9.5 fl (6.2-12.0); Monocyte# 0.86 X10^3/uL; Monocyte% 12.5 % (0-10); NRBC Flagged by Analyzer 0 % (0-5); Neutrophil # 3.69 X10^3/uL (2.7-7.7); Neutrophil % 53.4 % (47-70); Platelet Count 357 K/mm3 (150-450); RBC Distribution Width CV 13.5 % (11.6-14.6); RBC Distribution Width SD 42.6 fl (35.1-43.9); Red Blood Count 3.46 M/mm3 (4.6-6.2); White Blood Count 6.9 K/mm3 (4.4-11.0)
== END | disposition home or self-care (01) ==
LOC: BFHLAB 16:35
PROVIDERS: PCP Family Medicine; Visit Provider Family Medicine
DX: D64.9 Anemia, unspecified (principal)
CPT/HCPCS: 36415; 85025

== ENCOUNTER → 2024-04-24 | Outpatient (CLI) | payer MEDICARE, OTHER, SELFPAY ==
[2024-04-24 12:12] LABS: Absolute Lymphocyte Count 1.35 X10^3/uL (0.83-4.51); Absolute Neutrophil Count 4.9 X10^3/uL (2.0-7.7); Basophil# 0.08 X10^3/uL; Basophil% 1.1 % (0-1); Eosinophils% 4.1 % (0-5); Hematocrit 28.6 % (40-54); Hemoglobin 8.9 g/dL (13.0-16.5); Lymphocyte # 1.35 X10^3/ul (0.83-4.51); Lymphocyte % 18.3 % (19-41); Mean Corp Hgb Conc 31.1 g/dL (32-36); Mean Corpuscular Hgb 24.5 pg (27.0-32.0); Mean Corpuscular Volume 78.6 fL (80-94); Mean Platelet Vol. 9.5 fl (6.2-12.0); Monocyte# 0.73 X10^3/uL; Monocyte% 9.9 % (0-10); NRBC Flagged by Analyzer 0 % (0-5); Neutrophil % 66.2 % (47-70); Platelet Count 331 K/mm3 (150-450); RBC Distribution Width CV 15.9 % (11.6-14.6); RBC Distribution Width SD 45.9 fl (35.1-43.9); Red Blood Count 3.64 M/mm3 (4.6-6.2); White Blood Count 7.4 K/mm3 (4.4-11.0)
[2024-04-24 12:24] LABS: Anion Gap 6 (5-15); BUN 12 mg/dL (7-18); BUN/Creat Ratio 9.4 RATIO (10-20); Calcium,Total 9.4 mg/dL (8.5-10.1); Chloride 96 mmol/L (98-107); Creatinine, Serum 1.27 mg/dL (0.70-1.30); EST Glomerular Filtration Rate 58 mL/min (>60); Est Glom Filt Rate - Afr Amer 70 mL/min (>60); Glucose 127 mg/dL (74-106); Potassium 3.3 mmol/L (3.5-5.1); Sodium Level 136 mmol/L (136-145)
[2024-04-24 13:36] LABS: Ferritin 10 ng/mL (26-388); Iron 20 ug/dL (65-175)
== END | disposition home or self-care (01) ==
LOC: BFHLAB 10:07
PROVIDERS: PCP Family Medicine; Visit Provider Family Medicine
DX: D64.9 Anemia, unspecified (principal); Z51.81 Encounter for therapeutic drug level monitoring
CPT/HCPCS: 36415; 80048; 82728; 83540; 85025

== ENCOUNTER → 2024-05-22 | Outpatient (CLI) | payer MEDICARE, OTHER, SELFPAY ==
[2024-05-22 12:24] LABS: Absolute Lymphocyte Count 1.58 X10^3/uL (0.83-4.51); Absolute Neutrophil Count 3.7 X10^3/uL (2.0-7.7); Basophil# 0.08 X10^3/uL; Basophil% 1.3 % (0-1); Eosinophil# 0.16 X10^3/uL; Eosinophils% 2.6 % (0-5); Hematocrit 34.5 % (40-54); Hemoglobin 10.4 g/dL (13.0-16.5); Lymphocyte # 1.58 X10^3/ul (0.83-4.51); Lymphocyte % 25.3 % (19-41); Mean Corp Hgb Conc 30.1 g/dL (32-36); Mean Corpuscular Hgb 23.8 pg (27.0-32.0); Mean Corpuscular Volume 78.9 fL (80-94); Mean Platelet Vol. 9.7 fl (6.2-12.0); Monocyte# 0.67 X10^3/uL; Monocyte% 10.7 % (0-10); NRBC Flagged by Analyzer 0 % (0-5); Neutrophil # 3.74 X10^3/uL (2.7-7.7); Neutrophil % 59.8 % (47-70); POSITIVE MORPHOLOGY YES; Platelet Count 334 K/mm3 (150-450); RBC Distribution Width CV 20.5 % (11.6-14.6); RBC Distribution Width SD 58.7 fl (35.1-43.9); Red Blood Count 4.37 M/mm3 (4.6-6.2); White Blood Count 6.3 K/mm3 (4.4-11.0)
[2024-05-22 12:30] LABS: Differential Indicated SCAN CRITERIA MET
[2024-05-22 12:53] LABS: Anion Gap 7 (5-15); BUN 14 mg/dL (7-18); BUN/Creat Ratio 10.1 RATIO (10-20); Calcium,Total 9.6 mg/dL (8.5-10.1); Chloride 102 mmol/L (98-107); Creatinine, Serum 1.39 mg/dL (0.70-1.30); EST Glomerular Filtration Rate 52 mL/min (>60); Est Glom Filt Rate - Afr Amer 63 mL/min (>60); Ferritin 21 ng/mL (26-388); Glucose 110 mg/dL (74-106); Iron 25 ug/dL (65-175); Potassium 3.8 mmol/L (3.5-5.1); Sodium Level 140 mmol/L (136-145)
[2024-05-22 12:56] LABS: Anisocytosis 1+
== END | disposition home or self-care (01) ==
LOC: BFHLAB 10:33
PROVIDERS: PCP Family Medicine; Visit Provider Family Medicine
DX: D64.9 Anemia, unspecified (principal); I10 Essential (primary) hypertension
CPT/HCPCS: 36415; 80048; 82728; 83540; 85025

== ENCOUNTER → 2024-05-26 | Outpatient (CLI) | payer MEDICARE, OTHER, SELFPAY | END | disposition home or self-care (01) | PROVIDERS: PCP Family Medicine; Referring Provider Family Medicine; Visit Provider Family Medicine | DX: D64.9 Anemia, unspecified (principal) | CPT/HCPCS: 82274 ==

== ENCOUNTER 2024-06-26 05:33 | Day surgery (SDC) | payer MEDICARE, OTHER, SELFPAY ==
--- NOTE | 2024-06-24 09:20 | PAT.ANESEVAL ---
Pre-Assessment Diagnosis/Proposed Procedure Planned Operative Procedure(s): EGD Anesthesia History Anesthesia History - medical assembly: Anesthesia History - medical assembly Hx Hospitalization Yes: 03/07/24 - gi bleed - 2 06/24/24 09:09 units of blood Any Problems With Anesthesia No 06/24/24 09:09 Cholinesterase deficiency No 06/24/24 09:09 You/Your Family Experience No 06/24/24 09:09 fever (hyperthermia) with Relationship Recent Exposure to Contagious No 03/17/24 10:51 Disease Does patient have nerve No 06/24/24 09:09 stimulator Patient instructed to have device shut off --Does patient have Pacemaker or ICD? When Was Last Pacemaker Check QUESTION #4 FULL TEXT: You/Your Family Experience fever (hyperthermia) with Anesthesia Last Oral Intake Last Oral intake: Last Oral Intake NPO since Meds taken in AM with sips of water? Meds patient instructed to take am of surgery PONV PONV - medical assembly: PONV - medical assembly Female No 06/24/24 09:09 HX of Motion Sickness No 06/24/24 09:09 HX of N/V After Surgery No 06/24/24 09:09 Non-Smoker Yes 06/24/24 09:09 Duration of Surgery greater No 06/24/24 09:09 than 60 minutes Number of Risk Factors 1 06/24/24 09:09 PONV Score Low Risk 06/24/24 09:09 Height & Weight Height & Weight: Anesthesia: Height & Weight Height 5 ft 7 in 03/17/24 10:51 Respiratory Assessment Respiratory Assessment - medical assembly: Respiratory Tract Infection Hx - medical assembly Hx Respiratory Tract Infection No 06/24/24 09:09 STOP Sleep Apnea STOP Sleep Apnea - medical assembly: STOP Sleep Apnea - medical assembly Hx Hypertension Yes: controlled with med 06/24/24 09:09 Hx Sleep Apnea Yes: NO LONGER USING 06/24/24 09:09 CPAP No 06/24/24 09:09 BIPAP No 06/24/24 09:09 Do you snore loudly (louder than talking or can be heard Do you often feel tired/ fatigued/ sleepy during daytime? Has anyone observed you stop breathing during sleep? STOP Results Positive 06/24/24 09:09 QUESTION #5 FULL TEXT : Do you snore loudly (louder than talking or can be heard through closed doors)? 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 Specify any problems Hx of Preganancy in last 3 N/A 06/24/24 09:09 Months Nurse Filling Out Transfusion VCHRISTIN 06/24/24 09:09 & Questions: Date: 06/24/24 06/24/24 09:09 Time: 09:11 06/24/24 09:09 Patient unable to answer at this time (ie. confused, unrespo /Reproduction History /Reproductive History - medical assembly: /Reproductive Hx- medical assembly Hx Now No 06/24/24 09:09 Gestational Age (in weeks): EDC: Hx Hx Para Hx Section SAB No 06/24/24 09:09 [facility] Medical History (Updated 06/24/24 @ 09:13 by Marina Olmedo) Dementia Wears glasses Thyroid disease Arthritis History of GI bleed Non-smoker CPAP (continuous positive airway pressure) dependence Sleep apnea Shortness of breath on exertion History of stress test History of echocardiogram History of edema Cardiology follow-up encounter History of heart attack (~2010) Anticoagulated Dementia Contact with and (suspected) exposure to other viral communicable diseases Acute bronchitis, unspecified PVD (peripheral vascular disease) Pure hypercholesterolemia Presence of stent in coronary artery (~01/11/11) Essential hypertension Atherosclerotic heart disease of [place] coronary artery without angina pectoris Paroxysmal atrial fibrillation Stenosis of right carotid artery Obstructive sleep apnea Other prison (current) drug therapy Myocardial infarct, old Abnormal nuclear stress test Shortness of breath PVD (peripheral vascular disease) Obesity (BMI 35.0-39.9 without comorbidity) Hypothyroidism Home Medications ?Medication ?Instructions ?Recorded ?Last Taken ?Type carvedilol 6.25 mg tablet 6.25 mg PO BID HEART 01/31/16 03/17/24 History levothyroxine 88 mcg tablet 88 mcg PO DAILY THYROID 01/31/16 03/17/24 History light mineral oil 1 %-mineral oil 1 drp ophthalmic (eye) DAILY PRN 09/29/21 Unknown History 4.5 % eye drops (Soothe XP) DRY EYE RELIEF rosuvastatin 20 mg tablet 20 mg PO DAILY CHOLESTEROL 08/17/23 Unknown History nitroglycerin 0.4 mg sublingual 0.4 mg sublingual Q5-15M PRN CHEST 10/10/23 Unknown Rx tablet PAIN #25 tabs calcium 600 mg (as 2 tab PO BID SUPPLEMENT 01/08/24 Unknown History carbonate)-vitamin D3 20 mcg (800 unit) tablet (Caltrate with Vitamin D3) furosemide 40 mg tablet 40 mg PO BIDCM EDEMA 30 days #60 01/10/24 Unknown Rx tabs sennosides 8.6 mg-docusate sodium 2 tab PO BID PRN CONSTIPATION 01/14/24 Unknown History 50 mg tablet (Stimulant Laxative Plus) cetirizine 10 mg capsule (All Day 10 mg PO DAILY Allergies 03/06/24 Unknown History Allergy (cetirizine)) lorazepam 0.5 mg tablet 0.5 mg PO BID PRN Anxiety 03/06/24 03/17/24 History pantoprazole 40 mg tablet,delayed 40 mg PO BID #60 tabs 05/29/24 Unknown Rx release acetaminophen 650 mg 1,300 mg PO Q8H PRN pain 06/24/24 Unknown History tablet,extended release (8 Hour Pain Reliever) budesonide-formoterol HFA 160 2 puff inhalation Q12H 06/24/24 Unknown History mcg-4.5 mcg/actuation aerosol inhaler (Breyna) ferrous gluconate 240 mg (27 mg 240 mg PO DAILY 06/24/24 06/22/24 History iron) tablet memantine 14 mg capsule 14 mg PO DAILY 06/24/24 Unknown History sprinkle,extended release 24hr potassium chloride 20 mEq 20 meq PO DAILY 06/24/24 Unknown History tablet,extended release rivaroxaban 20 mg tablet (Xarelto) 20 mg PO DAILY 06/24/24 06/22/24 History Allergy/AdvReac Type Severity Reaction Status Date / Time No Known Allergies Allergy Verified 06/24/24 08:55 Family History Father CAD (coronary artery disease) Colon cancer Hypertension Mother CAD (coronary artery disease) CVA (cerebral vascular accident) Brother CAD (coronary artery disease) Brother COPD (chronic obstructive pulmonary disease) Surgical History (Updated 06/24/24 @ 09:09 by Marina Olmedo) Hx of colonoscopy History of cardiac ablation for atrial fibrillation History of coronary artery stent placement History of cardiac catheterization History of basal cell carcinoma excision History of cataract surgery History of neck surgery History of shoulder surgery History of right-sided carotid endarterectomy (~06/2012) History of cardiac radiofrequency ablation (~01/2015) S/P PTCA (percutaneous transluminal coronary angioplasty) (~01/11/11) Social History household members: spouse Smoking Status: Never smoker alcohol intake: never substance use type: does not use caffeine: No what type of physical activity do you participate in: none seatbelt use: always do you feel safe at home: Yes Audit: Pertinent Findings Pertinent Findings EKG Perinent findings: SR w/ PACs & 1st degree AV block Echo (EF%) pertinent findings: The estimated ejection fraction is 65 %. No evidence for diastolic dysfunction. Trivial aortic valve insufficiency. Current Visit Impressions Current Visit Impressions: has a history of coronary artery disease with inferior myocardial infarction and stenting to his RCA in 2010.? He also has a history of atrial fibrillation, hyperlipidemia, VINOD with CPAP.? He has been evaluated by [facility] EP and did undergo an ablation in 2014. Recommendation Anesthesia Recommendation Anesthesia recommendation: OPTIMIZED for anesthesia
--- NOTE | 2024-06-24 09:20 | PAT.ANESEVAL ---
Pre-Assessment Diagnosis/Proposed Procedure Planned Operative Procedure(s): EGD Anesthesia History Anesthesia History - coroner: Anesthesia History - coroner Hx Hospitalization Yes: 03/07/24 - gi bleed - 2 06/24/24 09:09 units of blood Any Problems With Anesthesia No 06/24/24 09:09 Cholinesterase deficiency No 06/24/24 09:09 You/Your Family Experience No 06/24/24 09:09 fever (hyperthermia) with Relationship Recent Exposure to Contagious No 03/17/24 10:51 Disease Does patient have nerve No 06/24/24 09:09 stimulator Patient instructed to have device shut off --Does patient have Pacemaker or ICD? When Was Last Pacemaker Check QUESTION #4 FULL TEXT: You/Your Family Experience fever (hyperthermia) with Anesthesia Last Oral Intake Last Oral intake: Last Oral Intake NPO since Meds taken in AM with sips of water? Meds patient instructed to take am of surgery PONV PONV - coroner: PONV - coroner Female No 06/24/24 09:09 HX of Motion Sickness No 06/24/24 09:09 HX of N/V After Surgery No 06/24/24 09:09 Non-Smoker Yes 06/24/24 09:09 Duration of Surgery greater No 06/24/24 09:09 than 60 minutes Number of Risk Factors 1 06/24/24 09:09 PONV Score Low Risk 06/24/24 09:09 Height & Weight Height & Weight: Anesthesia: Height & Weight Height 5 ft 7 in 03/17/24 10:51 Respiratory Assessment Respiratory Assessment - coroner: Respiratory Tract Infection Hx - coroner Hx Respiratory Tract Infection No 06/24/24 09:09 STOP Sleep Apnea STOP Sleep Apnea - coroner: STOP Sleep Apnea - coroner Hx Hypertension Yes: controlled with med 06/24/24 09:09 Hx Sleep Apnea Yes: NO LONGER USING 06/24/24 09:09 CPAP No 06/24/24 09:09 BIPAP No 06/24/24 09:09 Do you snore loudly (louder than talking or can be heard Do you often feel tired/ fatigued/ sleepy during daytime? Has anyone observed you stop breathing during sleep? STOP Results Positive 06/24/24 09:09 QUESTION #5 FULL TEXT : Do you snore loudly (louder than talking or can be heard through closed doors)? 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 Specify any problems Hx of Preganancy in last 3 N/A 06/24/24 09:09 Months Nurse Filling Out Transfusion VCHRISTIN 06/24/24 09:09 & Questions: Date: 06/24/24 06/24/24 09:09 Time: 09:11 06/24/24 09:09 Patient unable to answer at this time (ie. confused, unrespo /Reproduction History /Reproductive History - coroner: /Reproductive Hx- coroner Hx Now No 06/24/24 09:09 Gestational Age (in weeks): EDC: Hx Hx Para Hx Section SAB No 06/24/24 09:09 [facility] History (Updated 06/24/24 @ 09:13 by Marina lOmedo) Dementia Wears glasses Thyroid disease Arthritis History of GI bleed Non-smoker CPAP (continuous positive airway pressure) dependence Sleep apnea Shortness of breath on exertion History of stress test History of echocardiogram History of edema Cardiology follow-up encounter History of heart attack (~2010) Anticoagulated Dementia Contact with and (suspected) exposure to other viral communicable diseases Acute bronchitis, unspecified PVD (peripheral vascular disease) Pure hypercholesterolemia Presence of stent in coronary artery (~01/11/11) Essential hypertension Atherosclerotic heart disease of [place] coronary artery without angina pectoris Paroxysmal atrial fibrillation Stenosis of right carotid artery Obstructive sleep apnea Other assisted (current) drug therapy Myocardial infarct, old Abnormal nuclear stress test Shortness of breath PVD (peripheral vascular disease) Obesity (BMI 35.0-39.9 without comorbidity) Hypothyroidism Home Medications ?Medication ?Instructions ?Recorded ?Last Taken ?Type carvedilol 6.25 mg tablet 6.25 mg PO BID HEART 01/31/16 03/17/24 History levothyroxine 88 mcg tablet 88 mcg PO DAILY THYROID 01/31/16 03/17/24 History light mineral oil 1 %-mineral oil 1 drp ophthalmic (eye) DAILY PRN 09/29/21 Unknown History 4.5 % eye drops (Soothe XP) DRY EYE RELIEF rosuvastatin 20 mg tablet 20 mg PO DAILY CHOLESTEROL 08/17/23 Unknown History nitroglycerin 0.4 mg sublingual 0.4 mg sublingual Q5-15M PRN CHEST 10/10/23 Unknown Rx tablet PAIN #25 tabs calcium 600 mg (as 2 tab PO BID SUPPLEMENT 01/08/24 Unknown History carbonate)-vitamin D3 20 mcg (800 unit) tablet (Caltrate with Vitamin D3) furosemide 40 mg tablet 40 mg PO BIDCM EDEMA 30 days #60 01/10/24 Unknown Rx tabs sennosides 8.6 mg-docusate sodium 2 tab PO BID PRN CONSTIPATION 01/14/24 Unknown History 50 mg tablet (Stimulant Laxative Plus) cetirizine 10 mg capsule (All Day 10 mg PO DAILY Allergies 03/06/24 Unknown History Allergy (cetirizine)) lorazepam 0.5 mg tablet 0.5 mg PO BID PRN Anxiety 03/06/24 03/17/24 History pantoprazole 40 mg tablet,delayed 40 mg PO BID #60 tabs 05/29/24 Unknown Rx release acetaminophen 650 mg 1,300 mg PO Q8H PRN pain 06/24/24 Unknown History tablet,extended release (8 Hour Pain Reliever) budesonide-formoterol HFA 160 2 puff inhalation Q12H 06/24/24 Unknown History mcg-4.5 mcg/actuation aerosol inhaler (Breyna) ferrous gluconate 240 mg (27 mg 240 mg PO DAILY 06/24/24 06/22/24 History iron) tablet memantine 14 mg capsule 14 mg PO DAILY 06/24/24 Unknown History sprinkle,extended release 24hr potassium chloride 20 mEq 20 meq PO DAILY 06/24/24 Unknown History tablet,extended release rivaroxaban 20 mg tablet (Xarelto) 20 mg PO DAILY 06/24/24 06/22/24 History Allergy/AdvReac Type Severity Reaction Status Date / Time No Known Allergies Allergy Verified 06/24/24 08:55 Family History Father CAD (coronary artery disease) Colon cancer Hypertension Mother CAD (coronary artery disease) CVA (cerebral vascular accident) Brother CAD (coronary artery disease) Brother COPD (chronic obstructive pulmonary disease) Surgical History (Updated 06/24/24 @ 09:09 by Marina Olmedo) Hx of colonoscopy History of cardiac ablation for atrial fibrillation History of coronary artery stent placement History of cardiac catheterization History of basal cell carcinoma excision History of cataract surgery History of neck surgery History of shoulder surgery History of right-sided carotid endarterectomy (~06/2012) History of cardiac radiofrequency ablation (~01/2015) S/P PTCA (percutaneous transluminal coronary angioplasty) (~01/11/11) Social History household members: spouse Smoking Status: Never smoker alcohol intake: never substance use type: does not use caffeine: No what type of physical activity do you participate in: none seatbelt use: always do you feel safe at home: Yes Prior Cardiac Testing/Procedures Prior Cardiac Testing/Procedures: Echocardiogram (65% in 2023) Addt'l Information Additional Findings: EKG: SR with 1st degree AV block, PACs Audit: Pertinent Findings Pertinent Findings Heart catheterization pertinent findings: CAD s/p inferior SC, stenting to RCA Additional pertinent findings: Afib, VINOD w/ CPAP. Had ablation in 2014. Current Visit Impressions Current Visit Impressions: PVD, HLD, HTN, CAD Recommendation Anesthesia Recommendation Anesthesia recommendation: F/U recommended (Recommend obtaining cardiac clearance, patient is at moderate risk for cardiovascular complications. Otherwise patient is optimized for anesthesia )
[2024-06-26] VITALS (8 sets, daily range): BP systolic 102–158; BP diastolic 58–89; PULSE 56–67; RESP 16–20; TEMP 36.1–36.5; O2SAT 92–98; BMI 33.5
--- NOTE | 2024-06-26 06:21 | PCM.PRE.AN2 ---
ASA Classification* ASA Classification ASA Classification: 3 Assessment & Plan Anesthesia* Anesthesia Assessment Anesthesia Assessment: Discussed sedation and/or anesthesia options, risks, benefits, and alternatives with patient/parents/legal guardian/POA. Questions invited. The patient/parents/legal guardian/POA seems to understand and agrees to proceed with anesthesia plan. Reviewed the physical assessment, medical history, allergy history and patient home medications list prior to surgery/procedure/anesthetic and documented any changes. Performed airway and anesthesia risk assessments. Anesthesia Type Anesthesia Type: MAC Anesthesia Focused Assessment* Temperature: 97.3 F Pulse Rate: 67 Blood Pressure: 158/89 Respiratory Rate: 16 Pulse Ox: 95 Oxygen Delivery Method: Room Air Airway Assessment Mouth opens: >3 cm Mallampati Score: II Teeth Condition: Upper (Bridge, permanent) Neck Range of motion (ROM): Full ROM Comment: Patient wore CPAP but since dementia progressing he is refusing (last wore last november 2023). Per patient's . Focused Labs Anesthesia Preop lab: CBC WBC 6.3 K/mm3 (4.4-11.0) 05/22/24 10:35 05/22/24 RBC 4.37 M/mm3 (4.6-6.2) L 05/22/24 10:35 05/22/24 Hgb 10.4 g/dL (13.0-16.5) L 05/22/24 10:35 05/22/24 Hct 34.5 % (40-54) L 05/22/24 10:35 05/22/24 Plt Count 334 K/mm3 (150-450) 05/22/24 10:35 05/22/24 CHEMISTRY Potassium 3.8 mmol/L (3.5-5.1) 05/22/24 10:35 05/22/24 Sodium 140 mmol/L (136-145) 05/22/24 10:35 05/22/24 Magnesium 1.9 mg/dL (1.6-2.6) 01/08/24 22:09 01/08/24 BUN 14 mg/dL (7-18) 05/22/24 10:35 05/22/24 Creatinine 1.39 mg/dL (0.70-1.30) H 05/22/24 10:35 05/22/24 Glucose 110 mg/dL (74-106) H 05/22/24 10:35 05/22/24 TSH 1.760 uIU/mL (0.358-3.740) 03/07/24 05:55 03/07/24 COAG PT 18.0 SECONDS (11.7-14.9) H 03/07/24 05:55 03/07/24 Pre-Assessment Diagnosis/Proposed Procedure Planned Operative Procedure(s): EGD Anesthesia History Anesthesia History - production lead: Anesthesia History - production lead Hx Hospitalization Yes: 03/07/24 - gi bleed - 2 06/24/24 09:09 units of blood Any Problems With Anesthesia No 06/24/24 09:09 Cholinesterase deficiency No 06/24/24 09:09 You/Your Family Experience No 06/24/24 09:09 fever (hyperthermia) with Relationship Recent Exposure to Contagious No 06/26/24 06:05 Disease Does patient have nerve No 06/24/24 09:09 stimulator Patient instructed to have device shut off --Does patient have Pacemaker No 06/26/24 06:05 or ICD? When Was Last Pacemaker Check QUESTION #4 FULL TEXT: You/Your Family Experience fever (hyperthermia) with Anesthesia Any additional information?: No Last Oral Intake Last Oral intake: Last Oral Intake NPO since 23:00 06/26/24 06:05 Meds taken in AM with sips of Yes 06/26/24 06:05 water? Meds patient instructed to see med list 06/26/24 06:05 take am of surgery Any additional information?: No PONV PONV - production lead: PONV - production lead Female No 06/24/24 09:09 HX of Motion Sickness No 06/24/24 09:09 HX of N/V After Surgery No 06/24/24 09:09 Non-Smoker Yes 06/24/24 09:09 Duration of Surgery greater No 06/24/24 09:09 than 60 minutes Number of Risk Factors 1 06/24/24 09:09 PONV Score Low Risk 06/24/24 09:09 Any additional information?: No Height & Weight Height & Weight: Anesthesia: Height & Weight Height 5 ft 7 in 06/26/24 06:05 Weight: 97 kg 06/26/24 06:05 Body Mass Index (BMI) 33.5 06/26/24 06:05 Respiratory Assessment Respiratory Assessment - production lead: Respiratory Tract Infection Hx - production lead Hx Respiratory Tract Infection No 06/24/24 09:09 Any additional information?: No STOP Sleep Apnea STOP Sleep Apnea - production lead: STOP Sleep Apnea - production lead Hx Hypertension Yes: controlled with med 06/24/24 09:09 Hx Sleep Apnea Yes: NO LONGER USING 06/24/24 09:09 CPAP No 06/24/24 09:09 BIPAP No 06/24/24 09:09 Do you snore loudly (louder than talking or can be heard Do you often feel tired/ fatigued/ sleepy during daytime? Has anyone observed you stop breathing during sleep? STOP Results Positive 06/24/24 09:09 QUESTION #5 FULL TEXT : Do you snore loudly (louder than talking or can be heard through closed doors)? 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 Specify any problems Hx of Preganancy in last 3 N/A 06/24/24 09:09 Months Nurse Filling Out Transfusion VCHRISTIN 06/24/24 09:09 & Questions: Date: 06/24/24 06/24/24 09:09 Time: 09:11 06/24/24 09:09 Patient unable to answer at this time (ie. confused, unrespo Any additional information?: No /Reproduction History /Reproductive History - production lead: /Reproductive Hx- production lead Hx Now No 06/24/24 09:09 Gestational Age (in weeks): EDC: Hx Hx Para Hx Section SAB No 06/24/24 09:09 Any additional information?: No PFSH Medical History (Updated 06/24/24 @ 09:13 by Marina Olmedo) Dementia Wears glasses Thyroid disease Arthritis History of GI bleed Non-smoker CPAP (continuous positive airway pressure) dependence Sleep apnea Shortness of breath on exertion History of stress test History of echocardiogram History of edema Cardiology follow-up encounter History of heart attack (~2010) Anticoagulated Dementia Contact with and (suspected) exposure to other viral communicable diseases Acute bronchitis, unspecified PVD (peripheral vascular disease) Pure hypercholesterolemia Presence of stent in coronary artery (~01/11/11) Essential hypertension Atherosclerotic heart disease of [place] coronary artery without angina pectoris Paroxysmal atrial fibrillation Stenosis of right carotid artery Obstructive sleep apnea 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 Myocardial infarct, old Abnormal nuclear stress test Shortness of breath PVD (peripheral vascular disease) Obesity (BMI 35.0-39.9 without comorbidity) Hypothyroidism Home Medications ?Medication ?Instructions ?Recorded ?Last Taken ?Type carvedilol 6.25 mg tablet 6.25 mg PO BID HEART 01/31/16 06/26/24 History levothyroxine 88 mcg tablet 88 mcg PO DAILY THYROID 01/31/16 06/26/24 History light mineral oil 1 %-mineral oil 1 drp ophthalmic (eye) DAILY PRN 09/29/21 Unknown History 4.5 % eye drops (Soothe XP) DRY EYE RELIEF rosuvastatin 20 mg tablet 20 mg PO DAILY CHOLESTEROL 08/17/23 Unknown History nitroglycerin 0.4 mg sublingual 0.4 mg sublingual Q5-15M PRN CHEST 10/10/23 Unknown Rx tablet PAIN #25 tabs calcium 600 mg (as 2 tab PO BID SUPPLEMENT 01/08/24 Unknown History carbonate)-vitamin D3 20 mcg (800 unit) tablet (Caltrate with Vitamin D3) furosemide 40 mg tablet 40 mg PO BIDCM EDEMA 30 days #60 01/10/24 Unknown Rx tabs sennosides 8.6 mg-docusate sodium 2 tab PO BID PRN CONSTIPATION 01/14/24 Unknown History 50 mg tablet (Stimulant Laxative Plus) cetirizine 10 mg capsule (All Day 10 mg PO DAILY Allergies 03/06/24 Unknown History Allergy (cetirizine)) lorazepam 0.5 mg tablet 0.5 mg PO TID PRN Anxiety 03/06/24 06/26/24 History pantoprazole 40 mg tablet,delayed 40 mg PO BID #60 tabs 05/29/24 Unknown Rx release acetaminophen 650 mg 1,300 mg PO Q8H PRN pain 06/24/24 Unknown History tablet,extended release (8 Hour Pain Reliever) budesonide-formoterol HFA 160 2 puff inhalation Q12H 06/24/24 Unknown History mcg-4.5 mcg/actuation aerosol inhaler (Breyna) ferrous gluconate 240 mg (27 mg 240 mg PO DAILY 06/24/24 06/22/24 History iron) tablet memantine 14 mg capsule 14 mg PO DAILY 06/24/24 Unknown History sprinkle,extended release 24hr potassium chloride 20 mEq 20 meq PO DAILY 06/24/24 Unknown History tablet,extended release rivaroxaban 20 mg tablet (Xarelto) 20 mg PO DAILY 06/24/24 06/22/24 History Allergy/AdvReac Type Severity Reaction Status Date / Time No Known Allergies Allergy Verified 06/24/24 08:55 Family History Father CAD (coronary artery disease) Colon cancer Hypertension Mother CAD (coronary artery disease) CVA (cerebral vascular accident) Brother CAD (coronary artery disease) Brother COPD (chronic obstructive pulmonary disease) Surgical History (Updated 06/24/24 @ 09:09 by Marina Olmedo) Hx of colonoscopy History of cardiac ablation for atrial fibrillation History of coronary artery stent placement History of cardiac catheterization History of basal cell carcinoma excision History of cataract surgery History of neck surgery History of shoulder surgery History of right-sided carotid endarterectomy (~06/2012) History of cardiac radiofrequency ablation (~01/2015) S/P PTCA (percutaneous transluminal coronary angioplasty) (~01/11/11) Social History household members: spouse Smoking Status: Never smoker alcohol intake: never substance use type: does not use caffeine: No what type of physical activity do you participate in: none seatbelt use: always do you feel safe at home: Yes Review of Systems (Anesthesia) ROS Narrative System reviewed and no additional complaints, except as documented.
--- NOTE | 2024-06-26 06:56 | PCM.HP.STD ---
HPI - General General Date of Admission: 06/26/24 Date of Service: 06/26/24 Chief Complaint: gastric ulcer HPI Narrative CYNTHIA MANDUJANO, is a 83 M who presents for endoscopic surveillance of gastric ulcers. [facility] admission 03.06.24-03.07.24 with acute UGIB. Hemoglobin dropping to as low as 6.1. Underwent blood transfusion. EGD showing gastric ulcers. Hgb 7.5 upon discharge. Sent home with PPI BID and sucralfate. OV 03.13.24 Pt continues to have dark black tarry stools. Pt and brother help provide the hx. Prior to his admission he was having constipation which was abnormal. His PCP gave him a bowel prep which is when the black and tarry stool all started which was a month and a half ago. Pt is not taking any iron supplementation. He is feeling very weak and fatigued. EGD 03.07.24; - Normal esophagus. - Non-bleeding gastric ulcers with no stigmata of bleeding. Biopsied. - No gross lesions in the first portion of the duodenum. [facility] Medical History Dementia Wears glasses Thyroid disease Arthritis History of GI bleed Non-smoker CPAP (continuous positive airway pressure) dependence Sleep apnea Shortness of breath on exertion History of stress test History of echocardiogram History of edema Cardiology follow-up encounter History of heart attack (~2010) Anticoagulated Dementia Contact with and (suspected) exposure to other viral communicable diseases Acute bronchitis, unspecified PVD (peripheral vascular disease) Pure hypercholesterolemia Presence of stent in coronary artery (~01/11/11) Essential hypertension Atherosclerotic heart disease of [place] coronary artery without angina pectoris Paroxysmal atrial fibrillation Stenosis of right carotid artery Obstructive sleep apnea 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 Myocardial infarct, old Abnormal nuclear stress test Shortness of breath PVD (peripheral vascular disease) Obesity (BMI 35.0-39.9 without comorbidity) Hypothyroidism Home Medications ?Medication ?Instructions ?Recorded ?Last Taken ?Type carvedilol 6.25 mg tablet 6.25 mg PO BID HEART 01/31/16 06/26/24 History levothyroxine 88 mcg tablet 88 mcg PO DAILY THYROID 01/31/16 06/26/24 History light mineral oil 1 %-mineral oil 1 drp ophthalmic (eye) DAILY PRN 09/29/21 Unknown History 4.5 % eye drops (Soothe XP) DRY EYE RELIEF rosuvastatin 20 mg tablet 20 mg PO DAILY CHOLESTEROL 08/17/23 Unknown History nitroglycerin 0.4 mg sublingual 0.4 mg sublingual Q5-15M PRN CHEST 10/10/23 Unknown Rx tablet PAIN #25 tabs calcium 600 mg (as 2 tab PO BID SUPPLEMENT 01/08/24 Unknown History carbonate)-vitamin D3 20 mcg (800 unit) tablet (Caltrate with Vitamin D3) furosemide 40 mg tablet 40 mg PO BIDCM EDEMA 30 days #60 01/10/24 Unknown Rx tabs sennosides 8.6 mg-docusate sodium 2 tab PO BID PRN CONSTIPATION 01/14/24 Unknown History 50 mg tablet (Stimulant Laxative Plus) cetirizine 10 mg capsule (All Day 10 mg PO DAILY Allergies 03/06/24 Unknown History Allergy (cetirizine)) lorazepam 0.5 mg tablet 0.5 mg PO TID PRN Anxiety 03/06/24 06/26/24 History pantoprazole 40 mg tablet,delayed 40 mg PO BID #60 tabs 05/29/24 Unknown Rx release acetaminophen 650 mg 1,300 mg PO Q8H PRN pain 06/24/24 Unknown History tablet,extended release (8 Hour Pain Reliever) budesonide-formoterol HFA 160 2 puff inhalation Q12H 06/24/24 Unknown History mcg-4.5 mcg/actuation aerosol inhaler (Breyna) ferrous gluconate 240 mg (27 mg 240 mg PO DAILY 06/24/24 06/22/24 History iron) tablet memantine 14 mg capsule 14 mg PO DAILY 06/24/24 Unknown History sprinkle,extended release 24hr potassium chloride 20 mEq 20 meq PO DAILY 06/24/24 Unknown History tablet,extended release rivaroxaban 20 mg tablet (Xarelto) 20 mg PO DAILY 06/24/24 06/22/24 History Allergy/AdvReac Type Severity Reaction Status Date / Time No Known Allergies Allergy Verified 06/24/24 08:55 Family History Father CAD (coronary artery disease) Colon cancer Hypertension Mother CAD (coronary artery disease) CVA (cerebral vascular accident) Brother CAD (coronary artery disease) Brother COPD (chronic obstructive pulmonary disease) Surgical History Hx of colonoscopy History of cardiac ablation for atrial fibrillation History of coronary artery stent placement History of cardiac catheterization History of basal cell carcinoma excision History of cataract surgery History of neck surgery History of shoulder surgery History of right-sided carotid endarterectomy (~06/2012) History of cardiac radiofrequency ablation (~01/2015) S/P PTCA (percutaneous transluminal coronary angioplasty) (~01/11/11) Social History household members: spouse Smoking Status: Never smoker alcohol intake: never substance use type: does not use caffeine: No what type of physical activity do you participate in: none seatbelt use: always do you feel safe at home: Yes ROS Constitutional Constitutional: Denies fatigue, fever(s), poor appetite, weight gain or weight loss Gastrointestinal Gastrointestinal: Denies belching, bloating, change in bowel habits, change in stool character, chewing difficulty, coffee ground emesis, constipation, cramping, diarrhea, dyspepsia, dysphagia, early satiety, excessive flatus, fecal incontinence, heartburn, hematemesis, hematochezia, hemorrhoids, loose stools, melena, nausea, odynophagia, rectal bleeding, tenesmus, vomiting or weight changes Vital Signs Vital Signs Vital Signs: 06/26/24 06:05 06/26/24 06:05 06/26/24 06:24 Temperature 97.3 F L 97.3 F L Temperature Source Temporal Pulse Rate 67 67 Respiratory Rate 16 16 Respiratory Pattern Normal Blood Pressure 158/89 H 158/89 H Blood Pressure Mean 112 Blood Pressure Source Monitor Blood Pressure Position Left Lateral Blood Pressure Location Left Forearm Pulse Ox 95 95 Oxygen Delivery Method Room Air Room Air Weight Weight: 213 lb 13.574 oz Body Mass Index (BMI) 33.5 Physical Exam Const alert, oriented x3, no apparent distress and healthy appearing General Appearance: cooperative GI normal to inspection, nondistended, normoactive bowel sounds, soft to palpation, non-tender and non-distended Percussion: normal to percussion Rectal Exam: deferred Assessment & Plan Assessment/Plan (1) Gastric ulcer: (2) Anemia: PLAN: Assessment and Plan Assessment and Plan (1) Anemia: Status: Acute Plan: This is an 83 yo male pt who was admitted to [facility] 03.06.24-03.07.25 w/ GI bleed. He underwent EGD which showed gastric ulcers. Since then he as continued with black and tarry stools. His hemoglobin is however up trending from 7.5 to 8.1. He continues to have weakness. He will be scheduled for colonoscopy to rule out other etiology of GI bleeding. I will also order weekly CBC and stool occult blood test. He will continue PPI and sucralfate therapy in the mean time. -Colonoscopy -Weekly CBC -FOBT -f/u following procedure (2) Gastric ulcer: Status: Acute Orders: Orders CBC W/Diff, Automated 5 Days D64.9 - Anemia, unspecified Stool Occult Blood iFOB Today D64.9 - Anemia, unspecified \
--- NOTE | 2024-06-26 07:00 | EGD_PTH ---
PATIENT: CYNTHIA MANDUJANO LOC: EN U#:[id number] AGE/SX: 83/M ROOM: RE06/26/[address]: Dr. Brennen Dyer DO : 1940 BED: DIS: 06/26/2024 SPEC #: [id number] RECD: 06/26/24 10:29 STATUS: AMRIT REVicki #: [id number] DONAL: 06/26/24 07:[address]: Brennen Dyer DEPT: SURGICAL PATHOLOGY RECD BY: Alexia Pat ENTERED: 06/26/24 11:25 SP TYPE: EGD BIOPSY JEFF DR: Dr. Fidel Maurer DO Tissues: A - Duodenum, NOS B - Gastric mucous membrane Procedures: Immunohistochemical Stains Surgery Specimen Level IV HEADER OPERATION: EGD PRE-OP DIAGNOSIS: Gastric ulcer, anemia TISSUE SUBMITTED: A- Duodenum biopsy, B- Gastric body biopsy MICROSCOPIC DIAGNOSIS A. Duodenum, biopsy:Small intestinal mucosa with no histopathologic abnormality, no villous blunting. B. Gastric body, biopsy: Gastric (antral) mucosa with no H. pylori observed on immunohistochemistry for H. pylori with appropriate controlsFragment of small intestinal mucosa without significant villous blunting or intraepithelial lymphocytesJeffery Friedman MD, 07/03/2024 MICROSCOPIC DESCRIPTION Slides are reviewed. These tests were developed and their performance characteristics determined by [facility]. They may not have been cleared or approved by the U.S. Food and Drug Administration. The FDA has determined that such clearance or approval is not necessary. The above immunohistochemical/dualISH markers are ordered and reviewed by the Pathologist. GROSS DESCRIPTION A. Received in fixative is one container labeled with the patient's name and designated Duodenum biopsy. The specimen consists of multiple irregular fragments of light thao soft tissue that in aggregate measure 1.4 x 0.4 x 0.2 cm. The specimen is totally submitted in one cassette. B. Received in fixative is one container labeled with the patient's name and designated Gastric body biopsy. The specimen consists of one irregular fragment of light thao soft tissue that measures 0.5 x 0.4 x 0.2 cm. The specimen is totally submitted in one cassette. MS/mr 06/26/2024 CPT:[id number] ,[id number], TC:4
--- NOTE | 2024-06-26 07:19 | PCM.POST.ANE ---
Anesthesia: Postop Eval I Current Vital Signs Temperature: 97.7 F Pulse Rate: 59 Blood Pressure: 108/78 Respiratory Rate: 18 Pulse Ox: 95 Assessment Airway patent: Yes Spontaneous unlabored respirations: Yes nausea: No Vomiting: No Anesthesia Complication: No Fluid Hydration Crystalloid volume administer (ml): 10 Total IV fluid infused: 10 Progress Note Anesthesia document: Postop Eval 1 completed: Yes
--- NOTE | 2024-06-26 07:22 | OP.CCLET_ITS ---
06/26/2024 Fidel Maurer [address] [place] [address] Re : Upper GI endoscopy procedure for Pedro Gann Dear Dr. Maurer This procedure was performed on June. My impressions and recommendations are as follows: Impressions : - Normal esophagus. - Erythematous mucosa in the antrum. Biopsied. - Duodenal mucosal changes seen, diagnostic of celiac disease. Biopsied. Recommendations : - Discharge patient to home. - Resume previous diet. - Continue present medications. - Await pathology results. My findings are described in the full procedure note, which is enclosed. If I can be of further assistance, please feel free to contact me at . Sincerely, Brennen Dyer, 06/26/2024 7:21:59 AM This report has been signed electronically.
--- NOTE | 2024-06-26 07:22 | OP.EGD_ITS ---
Patient Name: Pedro Gann Procedure Date: 06/26/2024 6:57 AM Date of : 1940 Age: 83 Procedure: Upper GI endoscopy Indications: Iron deficiency anemia, Peptic ulcer Providers: Brennen Dyer DO Referring MD: Fidel Maurer Medicines: Monitored Anesthesia Care Patient Profile: This is an 83 year old male. Refer to note in patient chart for documentation of history and physical. Patient has symptoms. Complications: No immediate complications. Procedure: Pre-Anesthesia Assessment: - Prior to the procedure, a History and Physical was performed, and patient medications and allergies were reviewed. The patient is competent. The risks and benefits of the procedure and the sedation options and risks were discussed with the patient. All questions were answered and informed consent was obtained. Patient identification and proposed procedure were verified by the physician in the pre-procedure area. Mental Status Examination: alert and oriented. Airway Examination: normal oropharyngeal airway and neck mobility. Respiratory Examination: clear to auscultation. CV Examination: normal. ASA Grade Assessment: II - A patient with mild systemic disease. After reviewing the risks and benefits, the patient was deemed in satisfactory condition to undergo the procedure. The anesthesia plan was to use monitored anesthesia care (MAC). Immediately prior to administration of medications, the patient was re-assessed for adequacy to receive sedatives. The heart rate, respiratory rate, oxygen saturations, blood pressure, adequacy of pulmonary ventilation, and response to care were monitored throughout the procedure. The physical status of the patient was re-assessed after the procedure. After obtaining informed consent, the endoscope was passed under direct vision. Throughout the procedure, the patient's blood pressure, pulse, and oxygen saturations were monitored continuously. The gastroscope was introduced through the mouth, and advanced to the second part of duodenum. The upper GI endoscopy was accomplished without difficulty. The patient tolerated the procedure well. Scope In: 7:08:51 AM Scope Out: 7:12:53 AM Total Procedure Duration Time 0 hours 4 minutes 2 seconds Findings: The examined esophagus was normal. Patchy mildly erythematous mucosa without bleeding was found in the gastric antrum. Biopsies were taken with a cold forceps for histology. Verification of patient identification for the specimen was done. Estimated blood loss was minimal. Biopsies were taken with a cold forceps for Helicobacter pylori testing. Verification of patient identification for the specimen was done. Estimated blood loss was minimal. Scalloped mucosa was found in the duodenal bulb, scalloped mucosa was found in the first portion of the duodenum, scalloped mucosa was found in the second portion of the duodenum, thickened folds were found in the duodenal bulb, thickened folds were found in the first portion of the duodenum and thickened folds were found in the second portion of the duodenum. Biopsies were taken with a cold forceps for histology. Verification of patient identification for the specimen was done. Estimated blood loss was minimal. Impression: - Normal esophagus. - Erythematous mucosa in the antrum. Biopsied. - Duodenal mucosal changes seen, diagnostic of celiac disease. Biopsied. Recommendation: - Discharge patient to home. - Resume previous diet. - Continue present medications. - Await pathology results. Procedure Code(s): --- Professional --- 11971, Esophagogastroduodenoscopy, flexible, transoral; with biopsy, single or multiple CPT copyright 2021 [employer]. All rights reserved. The codes documented in this report are preliminary and upon case sealer review may be revised to meet current compliance requirements. Brennen Dyer DO 06/26/2024 7:21:59 AM This report has been signed electronically. Number of Addenda: 0 Note Initiated On: 06/26/2024 6:57 AM
--- NOTE | 2024-06-26 08:38 | POSTOPAN2_ITS ---
Anesthesia Postop Eval I Sum Postop Eval Completion status Anesthesia document: Postop Eval 1 completed: Yes Anesthesia Postop Eval I Summary Anesthesia Postop Eval I Summary: Anesthesia Postop Eval I: Assessment Summary Airway patent Yes 06/26/24 07:19 [email or web address] Spontaneous unlabored Yes 06/26/24 07:19 [email or web address] [email or web address] respirations Mental status nausea No 06/26/24 07:19 OUTBOARD [email or web address] Vomiting No 06/26/24 07:19 [email or web address] [email or web address] Anesthesia Postop Eval I: Fluid Summary Crystalloid volume administer 10 06/26/24 07:19 [email or web address] (ml) Colloids volume administered ( ml) Blood Product volume administered (ml) Total IV fluid infused 10 06/26/24 07:19 OUTBOARD [email or web address] Anesthesia Postop Eval I: Summary Notes Anesthesia Complication No 06/26/24 07:19 [email or web address] [email or web address] Anesthesia Complication Comment: Post-operative progress note Anesthesia: Postop Eval II Evaluation Mental status: Awake Pain Level: 0 nausea: No Vomiting: No
--- NOTE | 2024-06-26 08:38 | PCM.POSTANE2 ---
Anesthesia Postop Eval I Sum Postop Eval Completion status Anesthesia document: Postop Eval 1 completed: Yes Anesthesia Postop Eval I Summary Anesthesia Postop Eval I Summary: Anesthesia Postop Eval I: Assessment Summary Airway patent Yes 06/26/24 07:19 SPACE AND MISSILE OPERATIONS [email or web address] Spontaneous unlabored Yes 06/26/24 07:19 SPACE AND MISSI[employer] OPERATIONS [email or web address] respirations Mental status nausea No 06/26/24 07:19 SPACE AND MISSILE OPERATIONS [email or web address] Vomiting No 06/26/24 07:19 SPACE AND MISSILE OPERATIONS [email or web address] Anesthesia Postop Eval I: Fluid Summary Crystalloid volume administer 10 06/26/24 07:19 SP[employer] AND MISSILE OPERATIONS [email or web address] (ml) Colloids volume administered ( ml) Blood Product volume administered (ml) Total IV fluid infused 10 06/26/24 07:19 SPACE AND MISSILE OPERATIONS [email or web address] Anesthesia Postop Eval I: Summary Notes Anesthesia Complication No 06/26/24 07:19 SPACE AND MISSILE OPERATIONS [email or web address] Anesthesia Complication Comment: Post-operative progress note Anesthesia: Postop Eval II Evaluation Mental status: Awake Pain Level: 0 nausea: No Vomiting: No
== END 2024-06-26 09:55 | disposition home or self-care (01) ==
LOC: EN 05:34 → AC 05:36
PROVIDERS: PCP Family Medicine; Referring Provider Family Medicine; Visit Provider Internal Medicine Gastroenterology
PROC: 0DJ08ZZ Inspection of Upper Intestinal Tract, Via Natural or Artificial Opening Endoscopic (ICD-10-PCS; CPT 43235; principal; 2024-06-26 06:55)
DX: K25.9 Gastric ulcer, unspecified as acute or chronic, without hemorrhage or perforation (principal); I48.0 Paroxysmal atrial fibrillation; I25.10 Atherosclerotic heart disease of native coronary artery without angina pectoris; E78.00 Pure hypercholesterolemia, unspecified; K90.0 Celiac disease; D64.9 Anemia, unspecified; Z80.0 Family history of malignant neoplasm of digestive organs; I10 Essential (primary) hypertension; Z95.5 Presence of coronary angioplasty implant and graft; G47.33 Obstructive sleep apnea (adult) (pediatric); Z99.89 Dependence on other enabling machines and devices; I25.2 Old myocardial infarction; Z79.899 Other long term (current) drug therapy; E03.9 Hypothyroidism, unspecified; Z79.890 Hormone replacement therapy; Z79.01 Long term (current) use of anticoagulants; Z85.828 Personal history of other malignant neoplasm of skin; K31.89 Other diseases of stomach and duodenum
CPT/HCPCS: 43239; 88305; 88342; A4216; J2405

== ENCOUNTER → 2024-08-14 | Outpatient (CLI) | payer MEDICARE, OTHER, SELFPAY ==
--- NOTE | 2024-08-14 09:44 | RAD_ITS ---
EXAM: XR Lumbosacral Spine, 4 or 5 Views CLINICAL INDICATION: OTHER INTERVERTEBRAL DISC DEGENERATION, LUMBOSACRAL REGION WITH D TECHNIQUE: Frontal, lateral and bilateral oblique views of the lumbar spine. COMPARISON: No relevant prior studies available. FINDINGS: VERTEBRAE: Mild retrolisthesis of L3 over L4. Degenerative facet arthropathy throughout the lumbar spine, most prominent in the lower lumbar spine. No acute fracture. SACRUM/COCCYX: Unremarkable as visualized. No acute fracture. DISC SPACES: Degenerative disc disease throughout the lumbar spine. SOFT TISSUES: Unremarkable. VASCULATURE: Scattered calcified atherosclerotic disease of aorta. RAD/L/S Spine Comp/w Bending Views IMPRESSION: 1. No acute fracture. 2. Mild retrolisthesis of L3 over L4. 3. Degenerative changes lumbar spine as described. Reading Location: [id number]
== END | disposition home or self-care (01) ==
LOC: RAD 09:44
PROVIDERS: PCP Family Medicine; Referring Provider Anesthesiology Pain Medicine; Visit Provider Anesthesiology Pain Medicine
DX: M51.372 Other intervertebral disc degeneration, lumbosacral region with discogenic back pain and lower extremity pain (principal)
CPT/HCPCS: 72114

== ENCOUNTER → 2024-08-21 | Outpatient (CLI) | payer MEDICARE, OTHER, SELFPAY ==
[2024-08-21 11:32] LABS: Absolute Lymphocyte Count 1.56 X10^3/uL (0.83-4.51); Basophil# 0.05 X10^3/uL; Basophil% 0.8 % (0-1); Eosinophil# 0.09 X10^3/uL; Eosinophils% 1.4 % (0-5); Hematocrit 42.6 % (40-54); Hemoglobin 14.5 g/dL (13.0-16.5); Lymphocyte # 1.56 X10^3/ul (0.83-4.51); Lymphocyte % 24.4 % (19-41); Mean Corpuscular Hgb 29.5 pg (27.0-32.0); Mean Corpuscular Volume 86.6 fL (80-94); Mean Platelet Vol. 9.8 fl (6.2-12.0); Monocyte# 0.62 X10^3/uL; Monocyte% 9.7 % (0-10); NRBC Flagged by Analyzer 0 % (0-5); Neutrophil # 4.04 X10^3/uL (2.7-7.7); Neutrophil % 63.2 % (47-70); Platelet Count 219 K/mm3 (150-450); RBC Distribution Width CV 15.9 % (11.6-14.6); RBC Distribution Width SD 48.6 fl (35.1-43.9); Red Blood Count 4.92 M/mm3 (4.6-6.2); White Blood Count 6.4 K/mm3 (4.4-11.0)
[2024-08-21 12:12] LABS: Ferritin 56 ng/mL (37-417); Iron 59 ug/dL (65-175)
[2024-08-21 12:13] LABS: ALB/GLOB Ratio 1.7 RATIO (0.9-2.4); AST(SGOT) 23 U/L (<=37); Alanine Aminotransfer ALT/SGPT 24 U/L (<=46); Albumin, Serum 4.2 g/dL (3.4-4.8); Alkaline Phosphatase 109 U/L (40-129); Anion Gap 11 (5-15); BUN 14 mg/dL (4-19); BUN/Creat Ratio 11.7 RATIO (10-20); Calcium,Total 9.6 mg/dL (7.6-11.0); Carbon Dioxide 29.5 mmol/L (21.0-32.0); Chloride 99 mmol/L (98-108); Creatinine, Serum 1.17 mg/dL (0.70-1.20); EST Glomerular Filtration Rate 62 (>60); Globulin 2.4 g/dL (2.2-4.2); Glucose 106 mg/dL (70-99); Potassium 3.8 mmol/L (3.3-5.1); Protein, Total 6.6 g/dL (5.9-8.4); Sodium Level 140 mmol/L (133-145); Total Bilirubin 0.38 mg/dL (0.00-1.30)
== END | disposition home or self-care (01) ==
LOC: LAB 10:59
PROVIDERS: PCP Family Medicine; Referring Provider Family Medicine; Visit Provider Family Medicine
DX: D50.9 Iron deficiency anemia, unspecified (principal); I10 Essential (primary) hypertension; E03.9 Hypothyroidism, unspecified
CPT/HCPCS: 36415; 80053; 82728; 83540; 84443; 85025

== ENCOUNTER → 2024-09-08 | Outpatient (CLI) | payer MEDICARE, OTHER, SELFPAY ==
--- NOTE | 2024-09-08 07:47 | CDU_ITS ---
Reason For Study Reason For Study: Carotid Stenosis Rt. Velocities/BP Lt. Velocities/BP Prox CCA 85/12 cm/sec. Prox CCA 76/9 cm/sec. Mid CCA 91/17 cm/sec. Mid CCA 100/15 cm/sec. Dist CCA 61/11 cm/sec. Dist CCA 67/16 cm/sec. Prox ICA 62/13 cm/sec. Prox ICA 67/18 cm/sec. Mid ICA 84/22 cm/sec. Mid ICA 68/16 cm/sec. Dist ICA 84/23 cm/sec. Dist ICA 63/18 cm/sec. Rt. ICA/CCA = 0.9. Lt. ICA/CCA = 0.7. Prox ECA 83/6 cm/sec. Prox ECA 156/8 cm/sec. Rt. Vert. 52/13 cm/sec. Lt. Vert. 38/12 cm/sec. Right Extracranial There is heterogeneous, irregular atherosclerotic plaque noted in the right common carotid artery. There is intimal thickening but no significant atherosclerotic plaque noted in the right internal carotid artery. There is intimal thickening but no significant atherosclerotic plaque noted in the right external carotid artery. Antegrade flow is noted in the right vertebral artery. Left Extracranial There is heterogeneous, irregular atherosclerotic plaque noted in the left common carotid artery. There is heterogeneous, irregular atherosclerotic plaque noted in the left internal carotid artery. There is heterogeneous, irregular atherosclerotic plaque noted in the left external carotid artery. Antegrade flow is noted in the left vertebral artery. Procedure Carotid Duplex [id number]. This is a Carotid Duplex examination using B-mode, color flow and specral Doppler. Exam performed in department. VL/Carotid Duplex Ultrasound Interpretation Summary Normal right extracranial internal carotid. Mild (<50%) stenosis left extracranial internal carotid. Patent and antegrade vertebrals bilaterally. Ordering Physician: Ramiro Kuhn Referring Physician: Fidel Maurer Performed By: Aleshia Enriquez, RDCS, RVT
== END | disposition home or self-care (01) ==
LOC: CVS 07:46
PROVIDERS: PCP Family Medicine; Referring Provider Surgery Trauma Surgery; Visit Provider Surgery Trauma Surgery
DX: I65.23 Occlusion and stenosis of bilateral carotid arteries (principal)
CPT/HCPCS: 93880

== ENCOUNTER → 2024-12-16 | Outpatient (CLI) | payer MEDICARE, OTHER, SELFPAY ==
[2024-12-16 15:22] LABS: Hematocrit 49.1 % (40-54); Hemoglobin 16.8 g/dL (13.0-16.5); Immature Granulocytes Count 0.030 X10^3/uL (0.0-0.0); Mean Corp Hgb Conc 34.2 g/dL (32-36); Mean Corpuscular Volume 93.5 fL (80-94); Mean Platelet Vol. 10.1 fl (6.2-12.0); NRBC Flagged by Analyzer 0 % (0-5); Platelet Count 234 K/mm3 (150-450); RBC Distribution Width CV 12.5 % (11.6-14.6); RBC Distribution Width SD 43.3 fl (35.1-43.9); Red Blood Count 5.25 M/mm3 (4.6-6.2); White Blood Count 8.1 K/mm3 (4.4-11.0)
[2024-12-16 17:45] LABS: Anion Gap 13 (5-15); BUN 15 mg/dL (4-19); BUN/Creat Ratio 12.0 RATIO (10-20); Calcium,Total 9.8 mg/dL (7.6-11.0); Carbon Dioxide 27.9 mmol/L (21.0-32.0); Chloride 100 mmol/L (98-108); Glucose 121 mg/dL (70-99); Potassium 4.0 mmol/L (3.3-5.1)
== END | disposition home or self-care (01) ==
LOC: BFHLAB 11:51
PROVIDERS: PCP Family Medicine; Visit Provider Family Medicine
DX: R42 Dizziness and giddiness (principal); I10 Essential (primary) hypertension
CPT/HCPCS: 36415; 80048; 85025

== ENCOUNTER → 2025-02-17 | Outpatient (CLI) | payer MEDICARE, OTHER, SELFPAY ==
[2025-02-17 12:51] LABS: Anion Gap 9 (5-15); BUN 12 mg/dL (4-19); BUN/Creat Ratio 9.2 RATIO (10-20); Calcium,Total 9.4 mg/dL (7.6-11.0); Carbon Dioxide 30.9 mmol/L (21.0-32.0); Chloride 101 mmol/L (98-108); Ferritin 77 ng/mL (37-417); Glucose 112 mg/dL (70-99); Iron 70 ug/dL (65-175); Potassium 4.1 mmol/L (3.3-5.1)
[2025-02-17 13:16] LABS: Cholesterol 170 mg/dL (<=200); Low Density Lipoprotein Calc. 82 mg/dL; Triglycerides 192 mg/dL; Very Low Density Lipoprotein 38 mg/dL (5-40); cholesterol:hdl ratio screen 3.04
== END | disposition home or self-care (01) ==
PROVIDERS: PCP Family Medicine; Visit Provider Family Medicine
DX: I25.10 Atherosclerotic heart disease of native coronary artery without angina pectoris (principal); I10 Essential (primary) hypertension; D64.9 Anemia, unspecified; E03.9 Hypothyroidism, unspecified
CPT/HCPCS: 36415; 80048; 80061; 82728; 83540; 84443